=== PATIENT | female | born 1965 | race Caucasian/White ===

== ENCOUNTER 2017-12-04 12:14 | Emergency (ER) | payer OTHER ==
--- NOTE | 2017-12-04 14:01 | RAD REPORT ---
EXAM DESCRIPTION: RAD - Femur Left - 12/04/2017 1:51 pm CLINICAL HISTORY: Left leg pain COMPARISON: None. FINDINGS: No fracture is identified. There is no dislocation or periosteal reaction noted. No acute or suspicious bony finding. Minimal degenerative change seen along the superior margin of the acetab ulum. No focal femoral head abnormality. No periarticular mass or hematoma. No suspicious changes els ewhere in the soft tissues. IMPRESSION: Mild degenerative change along the superior acetabular rim. No acute bone, joint or soft tissue finding seen.
--- NOTE | 2017-12-04 14:02 | RAD REPORT ---
EXAM DESCRIPTION: RAD - Hip Left 2 View - 12/04/2017 1:55 pm CLINICAL HISTORY: Left hip pain COMPARISON: None. FINDINGS: AP and frogleg views of the left hip were obtained. There is no fracture or dislocation. N o AVN or focal femoral head abnormality. Minimal degenerative change seen along the superior margin o f the acetabular rim. No significant joint space narrowing. No pathologic bone process. SI joint deg enerative changes are present relatively mild. Sacral ala assessment is limited. No periarticular mass or hematoma. No abnormal soft tissue abnormality. IMPRESSION: Mild degenerative changes along the superior acetabular rim and SI joint.
--- NOTE | 2017-12-04 14:19 | ER ---
Nurse's Notes [facility] Name: Monica Anglin Age: 52 yrs Sex: Female : 1965 Arrival Date: 12/04/2017 Time: 12:17 Bed 17 Private MD: Harshal Garner Diagnosis: Contusion of left lower leg Presentation: 12/04 12:24 Presenting complaint: Mother states: pt was stuck on the toilet on Sunday and slid sv herself off of the toilet to the ground and started crawling the ground to get help. Pt c/o left posterior thigh pain. Pt has abrasion to the right knee. Transition of care: patient was not received from another setting of care. Onset of symptoms was December 01, 2017. Care prior to arrival: None. 12:24 Method Of Arrival: Wheelchair sv 12:24 Acuity: SUMMER 4 sv 13:16 Risk Assessment: Do you want to hurt yourself or someone else? Patient reports no ph desire to harm self or others. Initial Sepsis Screen: Does the patient meet any 2 criteria? No. Patient's initial sepsis screen is negative. Does the patient have a suspected source of infection? No. Patient's initial sepsis screen is negative. Historical: - Allergies: 12:29 No Known Allergies; sv - Home Meds: 12:29 None [Active]; sv - PMHx: 12:29 Hypertension; sv - PSHx: 12:29 None; sv - Immunization history:: Adult Immunizations up to date. - Social history:: Smoking status: Patient/guardian denies using tobacco, Patient/guardian denies using alcohol. - Ebola Screening: : No symptoms or risks identified at this time. Screenin:15 Abuse screen: Denies threats or abuse. Denies injuries from another. Nutritional ph screening: No deficits noted. Tuberculosis screening: No symptoms or risk factors identified. Fall Risk None identified. Assessment: 12:55 General: Appears in no apparent distress. uncomfortable, obese, well groomed, Behavior ph is calm, cooperative, appropriate for age. Pain: Complains of pain in lateral aspect of left thigh and right knee. Neuro: Level of Consciousness is awake, alert, obeys commands, Oriented to person, place, time, situation. Cardiovascular: Capillary refill < 3 seconds Patient's skin is warm and dry. Respiratory: Airway is patent Respiratory effort is even, unlabored, Respiratory pattern is regular, symmetrical. GI: No signs and/or symptoms were reported involving the gastrointestinal system. Derm: Skin is healthy with good turgor, Skin is pink, warm \T\ dry. Musculoskeletal: Circulation, motion, and sensation intact. Range of motion: intact in all extremities. Injury Description: Abrasion sustained to right knee was sustained 3 days. 14:00 Reassessment: Patient appears in no apparent distress at this time. Patient and/or ph family updated on plan of care and expected duration. Pain level reassessed. Patient is alert, oriented x 3, equal unlabored respirations, skin warm/dry/pink. Pt resting quietly, awaiting Xray results. 15:08 Reassessment: Patient appears in no apparent distress at this time. Patient and/or ph family updated on plan of care and expected duration. Pain level reassessed. Patient is alert, oriented x 3, equal unlabored respirations, skin warm/dry/pink. Pt d/c home w/ mother. Vital Signs: 12:29 BP 141 / 87; Pulse 101; Resp 22; Pulse Ox 97% ; Weight 136.08 kg; Height 5 ft. 7 in. sv (170.18 cm); Pain 3/10; 14:45 BP 135 / 78; Pulse 94; Resp 20; Temp 98.0; Pulse Ox 99% on R/A; ph 12:29 Body Mass Index 46.99 (136.08 kg, 170.18 cm) sv ED Course: 12:17 Patient arrived in ED. rg4 12:18 Harshal Garner DO is Private Physician. rg4 12:28 Triage completed. sv 12:29 Arm band placed on right wrist. Patient placed in an exam room, on a stretcher. sv 12:52 Jennifer Remy, ELIZABETH is Primary Nurse. ph 12:56 Marcial Huertas MD is Attending Physician. gs 13:16 Patient has correct armband on for positive identification. Bed in low position. Call ph light in reach. Side rails up X2. Pulse ox on. NIBP on. Warm blanket given. 13:51 Femur Left XRAY In Process Unspecified. EDMS 13:55 Hip Left 2 View XRAY In Process Unspecified. EDMS 14:18 Jose R Watkins MD is Referral Physician. gs 15:09 No provider procedures requiring assistance completed. Patient did not have IV access ph during this emergency room visit. Administered Medications: No medications were administered Outcome: 14:18 Discharge ordered by . gs 15:10 Discharged to home via wheelchair, with family. ph 15:10 Condition: good 15:10 Discharge instructions given to family, Instructed on discharge instructions, follow up and referral plans. medication usage, Demonstrated understanding of instructions, follow-up care, medications. 15:17 Patient left the ED. ph Signatures: Dispatcher [employer] EDAmy Tony RN RN Jennifer Remy RN RN Kiki Carpenter rg4 Marcial Huertas MD MD
--- NOTE | 2017-12-04 14:19 | EDPHYS ---
Physician Documentation [facility] Name: Monica Anglin Age: 52 yrs Sex: Female : 1965 Arrival Date: 12/04/2017 Time: 12:17 Bed 17 Private MD: Harshal Garner ED Physician Marcial Huertas HPI: 12/04 14:14 This 52 yrs old Unknown Female presents to ER via Wheelchair with complaints of Leg gs Pain. 14:14 The patient presents with an injury, pain. The complaints affect the left hip and left gs quadriceps. Context: The problem was sustained at home, resulted from the patient falling. Onset: The symptoms/episode began/occurred 2 day(s) ago. Modifying factors: The symptoms are alleviated by nothing. the symptoms are aggravated by movement. Associated signs and symptoms: Pertinent negatives numbness, weakness. Severity of symptoms: At their worst the symptoms were moderate, in the emergency department the symptoms are unchanged. Historical: - Allergies: 12:29 No Known Allergies; sv - Home Meds: 12:29 None [Active]; sv - PMHx: 12: Hypertension; sv - PSHx: 12:29 None; sv - Immunization history:: Adult Immunizations up to date. - Social history:: Smoking status: Patient/guardian denies using tobacco, Patient/guardian denies using alcohol. - Ebola Screening: : No symptoms or risks identified at this time. ROS: 14:14 All other systems are negative. gs Exam: 14:14 Head/Face: Normocephalic, atraumatic. Eyes: Pupils equal round and reactive to light, gs extra-ocular motions intact. Lids and lashes normal. Conjunctiva and sclera are non-icteric and not injected. Cornea within normal limits. Periorbital areas with no swelling, redness, or edema. ENT: Nares patent. No nasal discharge, no septal abnormalities noted. Tympanic membranes are normal and external auditory canals are clear. Oropharynx with no redness, swelling, or masses, exudates, or evidence of obstruction, uvula midline. Mucous membranes moist. Neck: Trachea midline, no thyromegaly or masses palpated, and no cervical lymphadenopathy. Supple, full range of motion without nuchal rigidity, or vertebral point tenderness. No Meningismus. Chest/axilla: Normal chest wall appearance and motion. Nontender with no deformity. No lesions are appreciated. Cardiovascular: Regular rate and rhythm with a normal S1 and S2. No gallops, murmurs, or rubs. Normal PMI, no JVD. No pulse deficits. Respiratory: Lungs have equal breath sounds bilaterally, clear to auscultation and percussion. No rales, rhonchi or wheezes noted. No increased work of breathing, no retractions or nasal flaring. Abdomen/GI: Soft, non-tender, with normal bowel sounds. No distension or tympany. No guarding or rebound. No evidence of tenderness throughout. Neuro: Awake and alert, GCS 15, oriented to person, place, time, and situation. Cranial nerves II-XII grossly intact. Motor strength 5/5 in all extremities. Sensory grossly intact. Cerebellar exam normal. Normal gait. 14:14 Constitutional: The patient appears alert, awake, obese. 14:14 Musculoskeletal/extremity: Extremities: noted in the left hip and lateral aspect of left thigh: tenderness, Circulation is intact in all extremities. 14:14 Skin: injury, abrasion(s), moderate sized abrasion noted, of the right knee. Vital Signs: 12:29 BP 141 / 87; Pulse 101; Resp 22; Pulse Ox 97% ; Weight 136.08 kg; Height 5 ft. 7 in. sv (170.18 cm); Pain 3/10; 14:45 BP 135 / 78; Pulse 94; Resp 20; Temp 98.0; Pulse Ox 99% on R/A; ph 12:29 Body Mass Index 46.99 (136.08 kg, 170.18 cm) sv MDM: 13:00 Patient medically screened. 14:14 Differential diagnosis: closed fracture, contusion, abrasion. Data reviewed: vital gs signs, nurses notes. 12/04 13:01 Order name: Femur Left XRAY; Complete Time: 14:12 gs 12/04 13:01 Order name: Hip Left 2 View XRAY; Complete Time: 14:12 Administered Medications: No medications were administered Disposition: 12/04/17 14:18 Discharged to Home. Impression: Contusion of left lower leg. - Condition is Stable. - Discharge Instructions: Contusion. - Medication Reconciliation Form, Thank You Letter, Antibiotic Education, Prescription Opioid Use form. - Follow up: Private Physician; When: 2 - 3 days; Reason: Re-evaluation by your physician. Follow up: Jose R Watkins MD; When: 2 - 3 days; Reason: Re-evaluation by your physician. Signatures: Dispatcher [employer] Amy Ruiz, RN RN Jennifer Remy RN RN HuertasMarcial norris MD MD gs Corrections: (The following items were deleted from the chart) 15:17 14:18 12/04/2017 14:18 Discharged to Home. Impression: Contusion of left lower leg. ph Condition is Stable. Forms are Medication Reconciliation Form, Thank You Letter, Antibiotic Education, Prescription Opioid Use. Follow up: Private Physician; When: 2 - 3 days; Reason: Re-evaluation by your physician. Follow up: Jose R Watkins; When: 2 - 3 days; Reason: Re-evaluation by your physician. gs
== END 2017-12-04 15:17 | disposition home or self-care (01) ==
LOC: ER 12:14
DX: S80.12XA Contusion of left lower leg, initial encounter (principal); I10 Essential (primary) hypertension; X58.XXXA Exposure to other specified factors, initial encounter; Y93.9 Activity, unspecified; Y92.9 Unspecified place or not applicable; Y99.9 Unspecified external cause status
CPT/HCPCS: 99283

== ENCOUNTER 2018-04-06 06:05 | Emergency (ER) | payer OTHER ==
[2018-04-06] MEDS ORDERED: NA CHLORIDE 0.9% 1,000 ML ONE ×3 (06:58→12:10)
[2018-04-06] MEDS ORDERED: CEFTRIAXONE/SWI 1gm 1 GM/10 ML SYR ONE (07:09)
[2018-04-06] MEDS ORDERED: ACETAMINOPHEN 500 MG TAB ONE (07:09)
[2018-04-06] MEDS ORDERED: NA CHLORIDE 0.9% 2,000 ML ONE (07:09)
[2018-04-06] MEDS ORDERED: ACETAMINOPHEN 650MG/RECT SUPP PR ONE (07:20)
[2018-04-06 07:24] LABS: Absolute Lymphocytes (CBC) 0.5 K/uL (0.7-4.9); Absolute Monocytes 0.4 K/uL (0.1-1.3); Absolute Neutrophil 21.3 K/uL (1.8-8.0); Basophils % 0.1 % (0-1.3); Eosinophils % 0.2 % (0-4.4); Hematocrit 33.5 % (36.0-45.0); Lymphocytes % 2.3 % (15.3-44.8); MCH 28.2 pg (27.0-35.0); MCV 81.3 fL (80-100); Monocytes % 1.8 % (3.3-12.3); RBC Red Blood Cell Count 4.12 M/uL (3.86-4.86)
[2018-04-06 07:27] LABS: Protime INR 1.07
[2018-04-06 08:04] LABS: ALT/SGPT 102 U/L (12-78); AST/SGOT 100 U/L (15-37); Albumin 1.8 g/dL (3.4-5.0); Alkaline Phosphatase 656 U/L (45-117); BUN Blood Urea Nitrogen 114 mg/dL (7-18); Bicarbonate 21 mmol/L (21-32); Bilirubin Direct 3.3 mg/dL (0-0.2); Bilirubin Total 3.8 mg/dL (0.2-1.0); Creatine Phosphokinase 61 U/L (26-192); Glucose Level 99 mg/dL (74-106); Lipase 119 U/L (73-393); Protein, Total 5.9 g/dL (6.4-8.2); Sodium Level 133 mmol/L (136-145); Troponin (Emerg Dept Use Only) < 0.02 ng/mL (0.0-0.045)
[2018-04-06 08:07] LABS: Potassium 2.8 mmol/L (3.5-5.1)
[2018-04-06 08:09] LABS: Blood Morphology Comment NOT SEEN (NOT SEEN); Platelet Estimate ADEQ; Platelets, Giant FEW
[2018-04-06] MEDS ORDERED: KCL 20 MEQ/100 mL IVPB 20 MEQ/100 ML BAG IV ONE (08:21)
[2018-04-06 08:29] LABS: Magnesium 1.5 mg/dL (1.8-2.4)
[2018-04-06 08:40] LABS: Urine Bacteria <20 /HPF (<20); Urine Culture Reflex Order NOT NEEDED; Urine RBC NONE SEEN /HPF (NONE SEEN)
[2018-04-06 08:41] LABS: Urine Amorphous Sediment 2+ /HPF (NONE SEEN)
[2018-04-06] MEDS ORDERED: Magnesium Sulfate 2gm IVPB 2 G/50 ML BAG IV ONE (08:45)
[2018-04-06] MEDS ORDERED: CALCIUM GLUCONATE 1gm/100 ML NS (4.65 mEq/100mL) IV ONE ×2 (09:00)
--- NOTE | 2018-04-06 09:04 | RAD REPORT ---
EXAM DESCRIPTION: CT - Abdomen Pelvis Wo Contrast - 04/06/2018 8:42 am CLINICAL HISTORY: Abdominal pain, vomiting COMPARISON: None. TECHNIQUE: Axial [address] imaging of the abdomen and pelvis was performed without IV contrast. No IV contrast administered due to abnormal renal function. No oral contrast administered. All CT scans are performed using dose optimization technique as appropriate and may include automated exposure control or mA/KV adjustment according to patient size. FINDINGS: No suspicious findings in the lung bases. Liver is upper normal in size. There is some heterogeneity of the liver parenchyma but no definitive mass seen. Absence of contrast is limiting. No gross capsular nodularity seen. Spleen is upper normal in size. No focal splenic abnormality. No focal abnormality of the pancreatic parenchyma. Biliary tree is not dilated. There is motion of the upper abdomen. There is questionable edema or th ickening of the gallbladder. Gallstones can be occult. No hydronephrosis or suspicious renal mass. No obstructing or nonobstructing renal calculi. A 4 x 3 c entimeter low-density mass lateral left kidney is probably a cyst. Motion artifact obscures the thao ns. No significant adrenal finding. Isodense renal masses and pyelonephritis cannot be excluded in th e absence of IV contrast. Urinary bladder is fully contracted around a Franz catheter. Uterus and ova ivon show no suspicious findings. No gastric dilatation or wall thickening. No dilated large or small bowel loops. Colonic diverticulos is present on the left. Appendicitis is not suspected. No free air or pneumatosis. Trace amount of fr ee fluid is present in the cul-de-sac. No hernia, mass or bulky lymphadenopathy. No acute or destructive bone process identifiable. Degenerative changes are present. IMPRESSION: No bowel obstruction, free air or surgically emergent finding. There is questionable wall thickening and edema of the gallbladder. The patient has respiratory motio n that limits upper abdominal assessment. Correlation is needed with any acute cholecystitis clinical or laboratory findings. No acute GI process identifiable. Appendicitis is not currently suspected. Trace free fluid in the cul-de-sac is likely physiologic. No hydronephrosis or acute finding. The amount of motion present and the absence of contrast precl uded evaluation of pyelonephritis for detection of an isodense mass.
[2018-04-06] MEDS ORDERED: PIPER/TAZO/NS 3.375gm 3.375 GM/100 ML BAG ONE (09:20)
[2018-04-06 09:45] LABS: Urine Blood TRACE (NEG); Urine Glucose NEGATIVE (NEG); Urine Protein NEGATIVE (NEG)
--- NOTE | 2018-04-06 11:02 | ER ---
Nurse's Notes [facility] Name: Monica Anglin Age: 52 yrs Sex: Female : 1965 Arrival Date: 04/06/2018 Time: 06:07 Bed 2 Private MD: Harshal Garner Diagnosis: Severe sepsis with septic shock;Calculus of bile duct with acute cholecystitis with obstruction Presentation: 04/06 07:07 Presenting complaint: Mother states: Pt was vomiting 3 days ago. Last night started jb4 complaining of back back. She yelled that she was wet and I noticed she had foul smelling urine. Transition of care: patient was not received from another setting of care. Onset of symptoms was April 06, 2018. Risk Assessment: Do you want to hurt yourself or someone else? Patient reports no desire to harm self or others. Initial Sepsis Screen: Does the patient meet any 2 criteria? Systolic BP < 90 mmHg. HR > 90 bpm. Yes Does the patient have a suspected source of infection? No. Patient's initial sepsis screen is negative. Care prior to arrival: None. 07:07 Method Of Arrival: Ambulatory jb4 07:07 Acuity: SUMMER 2 jb4 Triage Assessment: 07:10 General: Appears in no apparent distress. uncomfortable, Behavior is calm, cooperative, jb4 appropriate for age. Pain: Complains of pain in low back area Pain does not radiate. Pain currently is 4 out of 10 on a pain scale. at worst was 8 out of 10 on a pain scale. Quality of pain is described as crampy. EENT: No signs and/or symptoms were reported regarding the EENT system. Neuro: Level of Consciousness is awake, alert, obeys commands, Oriented to person, place, time, situation. Cardiovascular: Patient's skin is warm and dry. Respiratory: Airway is patent Respiratory effort is even, unlabored, Respiratory pattern is regular, symmetrical. GI: Reports diarrhea, nausea, vomiting. : Reports foul smelling urine. Derm: Skin is intact, Skin is pink, warm \T\ dry. Musculoskeletal: Circulation, motion, and sensation intact. Historical: - Allergies: 07:10 No Known Allergies; jb4 - Home Meds: 07:10 Lasix 20 mg Oral tab [Active]; Lisinopril Oral [Active]; jb4 - PMHx: 07:10 Hypertension; jb4 07:20 Developmental delay; aa5 - PSHx: 07:10 None; jb4 - Immunization history:: Adult Immunizations unknown, Flu vaccine is up to date. - Social history:: Smoking status: Patient/guardian denies using tobacco, Patient/guardian denies using alcohol. - Ebola Screening: : No symptoms or risks identified at this time. Screenin:50 Nutritional screening: No deficits noted. Fall Risk IV access (20 points). ea 07:10 Abuse screen: Denies threats or abuse. Tuberculosis screening: No symptoms or risk ea factors identified. Assessment: 07:00 General: Appears in no apparent distress. comfortable, Behavior is calm, cooperative. em Pain: Complains of pain in back and low back area. Neuro: Level of Consciousness is awake, alert, obeys commands, Oriented to person, place, time, situation. Cardiovascular: Heart tones S1 S2 present Capillary refill < 3 seconds Patient's skin is warm and dry. Rhythm is sinus tachycardia. Respiratory: Airway is patent Respiratory effort is even, unlabored, Respiratory pattern is regular, symmetrical. GI: Abdomen is obese, Bowel sounds present X 4 quads. Abd is soft and non tender X 4 quads. Reports diarrhea, nausea, vomiting. : Urine is cloudy. EENT: No signs and/or symptoms were reported regarding the EENT system. Derm: Skin is intact, Skin is normal. Musculoskeletal: Range of motion: intact in all extremities. 07:00 Reassessment: I agree with assessment completed by Elan Begum LVN . aa5 07:24 Reassessment: Patient appears in no apparent distress at this time. Patient and/or em family updated on plan of care and expected duration. Pain level reassessed. BP 85/50, HR 104, A\T\O4, provider and charge nurse notified, will continue to monitor pt. 07:45 Reassessment: BP 101/47, HR 111, RR 21, A\T\O4, will continue to monitor pt. em 08:25 Reassessment: Patient appears in no apparent distress at this time. Patient and/or em family updated on plan of care and expected duration. Pain level reassessed. pt transferred to CT with nurse and copy technician. provider and charge nurse notified, pt will be moved to ER2 after CT. 08:50 Reassessment: escorted pt to CT with IV pump, tolerated well, pt moved to ER2, report em given to ELIZABETH Acre. 09:41 Reassessment: ERP notified of BP, will be to bedside for central line placement. jl7 Vital Signs: 07:10 BP 104 / 43; Pulse 116; Resp 20; Temp 99.7; Pulse Ox 96% on R/A; Weight 129.27 kg; jb4 Height 5 ft. 7 in. (170.18 cm) (R); Pain 4/10; 07:24 BP 85 / 50; Pulse 104; Resp 21; Pulse Ox 99% on R/A; em 07:30 BP 97 / 58; Pulse 111; em 07:45 BP 101 / 47; Pulse 111; em 08:00 BP 84 / 49; Pulse 115; em 08:10 BP 97 / 40; Pulse 108; em 08:22 BP 83 / 54; Pulse 109; Resp 22; Pulse Ox 99% on R/A; em 09:07 BP 103 / 42; Pulse 100; Resp 25; Temp 98.5; Pulse Ox 99% ; jl7 09:15 BP 105 / 40; Pulse 100; Resp 20 S; Pulse Ox 96% on R/A; jl7 09:41 BP 83 / 39; Pulse 96; Resp 21 S; Pulse Ox 96% on R/A; jl7 09:48 BP 91 / 47; Pulse 96; Resp 24 S; Pulse Ox 98% on R/A; jl7 10:00 BP 84 / 52; Pulse 97; Resp 20 S; Pulse Ox 99% on R/A; jl7 10:15 BP 90 / 49; Pulse 96; Resp 19 S; Pulse Ox 96% on R/A; jl7 10:30 BP 95 / 45; Pulse 96; Resp 19 S; Pulse Ox 97% on R/A; jl7 10:45 BP 92 / 48; Pulse 97; Resp 18 S; Pulse Ox 96% on R/A; jl7 11:00 BP 81 / 52; Pulse 94; Resp 16 S; Pulse Ox 96% on R/A; jl7 11:15 BP 91 / 49; Pulse 96; Resp 18 S; Pulse Ox 96% on R/A; jl7 11:21 BP 107 / 49; Pulse 92; Resp 22 S; Pulse Ox 97% on R/A; jl7 11:24 BP 108 / 51; Pulse 92; jl7 07:10 Body Mass Index 44.64 (129.27 kg, 170.18 cm) jb4 ED Course: 06:07 Patient arrived in ED. am2 06:07 Harshal Garner DO is Private Physician. am2 06:10 Rosendo Ellis PA is PHCP. jr8 06:10 Marcial Huertas MD is Attending Physician. jr8 06:15 Arm band placed on right wrist. Patient placed in an exam room, on a stretcher, on ea pulse oximetry. 06:15 Patient has correct armband on for positive identification. Placed in gown. Bed in low ea position. Call light in reach. Side rails up X2. 06:41 Fabrice Nicole RN is Primary Nurse. jb4 07:00 Pulse ox on. NIBP on. jb4 07:00 Initial lab(s) drawn, by nj, sent to lab. Inserted saline lock: 20 gauge in left jb4 antecubital area, using aseptic technique. Blood collected. 07:05 Radiology exam delayed due to patient is not appropriately dressed for the exam at this ag1 time. 07:09 Triage completed. jb4 07:25 X-ray completed. Portable x-ray completed in exam room. ag1 07:27 Chest Single View XRAY In Process Unspecified. EDMS 08:40 CT completed. Patient moved to CT via stretcher. Patient moved back from CT. cw1 08:41 CT Abd/Pelvis - Without Cont In Process Unspecified. EDMS 08:[address] moved back from [address]. sv 09:15 Inserted saline lock: 22 gauge in left hand, using aseptic technique. jl7 10:23 Ultrasound completed. Patient tolerated well. Notified QA MANAGER/SURI tesfaye. sg3 10:25 US Abdomen Limited In Process Unspecified. EDMS 11:21 \T\1028 initiated a transfer with Gayle at the [facility] transfer center./ \T\1111 eb administrative approval given by Gayle Armas RN/ Pt going to [address] [place] [address] RM 6a11/ Report to be called to [phone] Dr. grullon has accepted the patient in transfer. 11:31 Assisted provider with central line placement. Set up central line tray. Triple lumen jl7 line placed in right femoral. Line placed by Rosendo MCCORD Placement verified by blood return, Dressed with Tape, Tegaderm, Patient tolerated well. Before procedure, did Practitioner(s) obtain informed consent? No. Patient \T\ family education about procedure, CLABSI prevention and S/S of infection? Yes. Time-out/Briefing performed prior to start of procedure? Yes. Was handwashing/sanitizing done immediately prior to procedure? Yes. Was patient positioned to in a way to prevent air embolism? Yes. Was procedure site sterilized? Yes, with chlorhexidine. Was the site allowed to dry? Yes. Was local anesthetic and/or sedation utilized? Yes. During the procedure, did the Practitioner(s) maintain a sterile field? Yes. Were unused ports clamped during insertion? Yes. Was a 2nd qualified MD obtained after 3 unsuccessful insertion attempts? No. Was blood aspirated from each lumen? Yes. After the procedure, did the Practitioner(s) clean the site and apply a sterile dressing? Yes. Administered Medications: 07:00 Drug: NS 0.9% (30 ml/kg) 30 ml/kg Route: IV; Rate: bolus; Site: left antecubital; em 07:18 Not Given (Other Intervention Used): Acetaminophen 1000 mg PO once em 07:31 Drug: Tylenol Suppository 650 mg Route: DC; em 09:32 Follow up: Response: Temperature is decreased jl7 07:40 Drug: Rocephin 1 grams Route: IV; Rate: calculated rate; Site: left antecubital; aa5 07:42 Follow up: Response: No adverse reaction; IV Status: Completed infusion jl7 08:50 Drug: Magnesium Sulfate 2 grams Route: IVPB; Infused Over: 2 hrs; Site: left jl7 antecubital; 10:50 Follow up: Response: No adverse reaction; IV Status: Completed infusion jl7 09:05 Drug: Potassium Chloride 20 mEq Route: IV; Rate: calculated rate; Site: left em antecubital; 11:00 Follow up: Response: No adverse reaction; IV Status: Completed infusion jl7 09:05 CANCELLED (Physician Discretion): vancoMYCIN 1 grams IVPB once over 2 hrs jr8 09:25 Drug: Zosyn 3.375 grams Route: IVPB; Infused Over: 60 mins; Site: left hand; jl7 10:25 Follow up: Response: No adverse reaction; IV Status: Completed infusion jl7 10:30 Drug: Calcium Gluconate 1 grams Route: IVPB; Infused Over: 60 mins; Site: left jl7 antecubital; 11:30 Follow up: Response: No adverse reaction; IV Status: Completed infusion jl7 11:17 Drug: Levophed (4 mg/250 mL D5W 4 mcg/min Route: IV; Rate: calculated rate; Site: right jl7 femoral; Outcome: 11:01 ER care complete, transfer ordered by MD. [email or web address] 13:17 Patient left the ED. vidhya Addendum: 04/09/2018 09:51 Addendum: Culture Results: Positive blood culture. Phone call Attempt #[address] [facility] transfer center, faxed report to , spoke daphnie Olivo in transfer center. Signatures: Dispatcher [employer] Amy Ruiz RN Elan Arias, TRACTOR MECHANIC APPRENTICE TRACTOR MECHANIC APPRENTICE em Génesis Sepulveda, RN Lynsey Odonnell RN RN Rosie Coffey cw1 Rosendo Ellis PA PA jr8 Fay Shah ag1 Fabrice Nicole RN Yazmin Borja RN ELIZABETH jl7 Gayle Valdovinos Elena RN Dennise Sanford ea, Elizabeth eb Corrections: (The following items were deleted from the chart) 04/06 07:25 07:23 Radiology exam delayed due to patient is not appropriately dressed for the exam ag1 at this time. ag1
--- NOTE | 2018-04-06 11:02 | EDPHYS ---
Physician Documentation [facility] Name: Monica Anglin Age: 52 yrs Sex: Female : 1965 Arrival Date: 04/06/2018 Time: 06:07 Bed 2 Private MD: Harshal Garner ED Physician Marcial Huertas HPI: 04/06 07:32 This 52 yrs old Unknown Female presents to ER via Ambulatory with complaints of Back jr8 Pain. 07:32 The symptoms are located in the low back. Onset: The symptoms/episode began/occurred jr8 acutely, today. The pain does not radiate. Associated signs and symptoms: Pertinent positives: nausea, vomiting. Modifying factors: The patient symptoms are alleviated by nothing, the patient symptoms are aggravated by nothing. Severity of symptoms: At their worst the symptoms were moderate, in the emergency department the symptoms are unchanged. It is unknown whether or not the patient has had similar symptoms in the past. The patient has not recently seen a physician. Stated that she had n/v for the past 3 days. This morning work up screaming because of low back pain. Had been complaining that she was wet as well. Mother stated that her urine was foul smelling. Patient hypotensive and tachycardic with low grade fever upon arrival . Historical: - Allergies: 07:10 No Known Allergies; jb4 - Home Meds: 07:10 Lasix 20 mg Oral tab [Active]; Lisinopril Oral [Active]; jb4 - PMHx: 07:10 Hypertension; jb4 07:20 Developmental delay; aa5 - PSHx: 07:10 None; jb4 - Immunization history:: Adult Immunizations unknown, Flu vaccine is up to date. - Social history:: Smoking status: Patient/guardian denies using tobacco, Patient/guardian denies using alcohol. - Ebola Screening: : No symptoms or risks identified at this time. ROS: 07:32 Eyes: Negative for injury, pain, redness, and discharge, ENT: Negative for injury, jr8 pain, and discharge, Neck: Negative for injury, pain, and swelling, Cardiovascular: Negative for chest pain, palpitations, and edema, Respiratory: Negative for shortness of breath, cough, wheezing, and pleuritic chest pain, MS/Extremity: Negative for injury and deformity, Skin: Negative for injury, rash, and discoloration, Neuro: Negative for headache, weakness, numbness, tingling, and seizure. 07:32 Abdomen/GI: Positive for nausea and vomiting, Negative for abdominal pain, diarrhea, abdominal distension, anorexia, dysphagia, hematemesis, black/tarry stool, rectal pain, rectal bleeding, bowel incontinence, flatulence. 07:32 Back: Positive for pain at rest, Negative for pain with movement, radiated pain. Exam: 07:32 Eyes: Pupils equal round and reactive to light, extra-ocular motions intact. Lids and jr8 lashes normal. Conjunctiva and sclera are non-icteric and not injected. Cornea within normal limits. Periorbital areas with no swelling, redness, or edema. ENT: Nares patent. No nasal discharge, no septal abnormalities noted. Tympanic membranes are normal and external auditory canals are clear. Oropharynx with no redness, swelling, or masses, exudates, or evidence of obstruction, uvula midline. Mucous membranes moist. Neck: Trachea midline, no thyromegaly or masses palpated, and no cervical lymphadenopathy. Supple, full range of motion without nuchal rigidity, or vertebral point tenderness. No Meningismus. Respiratory: Lungs have equal breath sounds bilaterally, clear to auscultation and percussion. No rales, rhonchi or wheezes noted. No increased work of breathing, no retractions or nasal flaring. Skin: Warm, dry with normal turgor. Normal color with no rashes, no lesions, and no evidence of cellulitis. MS/ Extremity: Pulses equal, no cyanosis. Neurovascular intact. Full, normal range of motion. Neuro: Awake and alert, GCS 15, oriented to person, place, time, and situation. Cranial nerves II-XII grossly intact. Motor strength 5/5 in all extremities. Sensory grossly intact. Cerebellar exam normal. Normal gait. History of MR 07:32 Cardiovascular: Rate: tachycardic, Rhythm: regular, Pulses: Pulses are 2+ in right radial artery and left radial artery. Heart sounds: normal, normal S1and S2, no S3 or S4, no murmur, no rub, no gallop, Edema: is not appreciated, JVD: is not appreciated. 07:32 Abdomen/GI: Inspection: obese Bowel sounds: active, Palpation: abdomen is soft and non-tender, in all quadrants, mass, is not appreciated, rebound tenderness, is not appreciated, voluntary guarding, is not appreciated, involuntary guarding, is not appreciated, no appreciated organomegaly, Indicators: McBurney's point is not tender, Nicole's sign is negative, Rovsing's sign is negative, Liver: no appreciated palpable abnormalities, tenderness. 07:32 Back: pain, is absent, ROM is normal, normal spinal alignment noted, CVA tenderness, is absent. Vital Signs: 07:10 BP 104 / 43; Pulse 116; Resp 20; Temp 99.7; Pulse Ox 96% on R/A; Weight 129.27 kg; jb4 Height 5 ft. 7 in. (170.18 cm) (R); Pain 4/10; 07:24 BP 85 / 50; Pulse 104; Resp 21; Pulse Ox 99% on R/A; em 07:30 BP 97 / 58; Pulse 111; em 07:45 BP 101 / 47; Pulse 111; em 08:00 BP 84 / 49; Pulse 115; em 08:10 BP 97 / 40; Pulse 108; em 08:22 BP 83 / 54; Pulse 109; Resp 22; Pulse Ox 99% on R/A; em 09:07 BP 103 / 42; Pulse 100; Resp 25; Temp 98.5; Pulse Ox 99% ; jl7 09:15 BP 105 / 40; Pulse 100; Resp 20 S; Pulse Ox 96% on R/A; jl7 09:41 BP 83 / 39; Pulse 96; Resp 21 S; Pulse Ox 96% on R/A; jl7 09:48 BP 91 / 47; Pulse 96; Resp 24 S; Pulse Ox 98% on R/A; jl7 10:00 BP 84 / 52; Pulse 97; Resp 20 S; Pulse Ox 99% on R/A; jl7 10:15 BP 90 / 49; Pulse 96; Resp 19 S; Pulse Ox 96% on R/A; jl7 10:30 BP 95 / 45; Pulse 96; Resp 19 S; Pulse Ox 97% on R/A; jl7 10:45 BP 92 / 48; Pulse 97; Resp 18 S; Pulse Ox 96% on R/A; jl7 11:00 BP 81 / 52; Pulse 94; Resp 16 S; Pulse Ox 96% on R/A; jl7 11:15 BP 91 / 49; Pulse 96; Resp 18 S; Pulse Ox 96% on R/A; jl7 11:21 BP 107 / 49; Pulse 92; Resp 22 S; Pulse Ox 97% on R/A; jl7 11:24 BP 108 / 51; Pulse 92; jl7 07:10 Body Mass Index 44.64 (129.27 kg, 170.18 cm) jb4 Procedures: 10:23 Central Line: the site was prepped with Betadine, in sterile fashion, a triple lumen jr8 catheter was inserted, in the right femoral vein, in 1 attempts. placement was verified, by blood return, the site was dressed with 4X4s, Tegaderm, using sterile technique, the patient tolerated the procedure, well. MDM: 06:51 Patient medically screened. jr8 10:24 Data reviewed: vital signs, nurses notes, lab test result(s), EKG, radiologic studies, jr8 CT scan, plain films, ultrasound. Data interpreted: Pulse oximetry: on room air is 98 %. Interpretation: normal. Sepsis 6 hour Focused Exam: Focused Assessment performed: April 06, 2018 at 10:24 Heart: Regular rate/rhythm noted. Lungs: Noted to be clear bilaterally. Capillary refill examination performed. Capillary refill noted to be < 2 seconds. Peripheral pulse evaluation performed. Radial Peripheral pulses noted to be 2+ slightly diminished. Skin examination performed. Skin noted to have normal turgor. Skin noted to be pink. Current vital signs reviewed: Yes. Neuro: Neurological examination improved from previous exam. Cardio: Cardiovascular examination improved from previous exam. Heart rate and blood pressure have improved. Respiratory: Respiratory exam improved from previous exam. Counseling: I had a detailed discussion with the patient and/or guardian regarding: the historical points, exam findings, and any diagnostic results supporting the discharge/admit diagnosis, lab results, radiology results, the need to transfer to another facility, [facility] does not immediately have the required specialist. Response to treatment: the patient's symptoms have mildly improved after treatment. 10:59 ED course: Dr. Mendez Accepted to surgical ICU for further evaluation . 8 15:59 ED course: pt seen and examined supervised all care and procedures and agree.. 04/06 06:56 Order name: Urine Culture [facility] 04/06 06:56 Order name: Basic Metabolic Panel [facility] 04/06 06:56 Order name: Blood Culture Adult (2) [facility] 04/06 06:56 Order name: CBC with Diff; Complete Time: 08:17 [facility] 04/06 06:56 Order name: CPK [facility] 04/06 06:56 Order name: Lactate; Complete Time: 07:37 [facility] 04/06 06:56 Order name: LFT's; Complete Time: 08:49 [facility] 04/06 06:56 Order name: Lipase; Complete Time: 08:49 [facility] 04/06 06:56 Order name: Procalcitonin; Complete Time: 07:54 [facility] 04/06 06:56 Order name: Protime (+inr); Complete Time: 07:54 [facility] 04/06 06:56 Order name: Ptt, Activated; Complete Time: 07:54 [facility] 04/06 06:56 Order name: Troponin (emerg Dept Use Only); Complete Time: 08:49 [facility] 04/06 06:56 Order name: Urine Microscopic Only; Complete Time: 08:49 [facility] 04/06 06:57 Order name: Urine Culture [facility] 04/06 06:56 Order name: Chest Single View XRAY; Complete Time: 12:34 [facility] 04/06 06:57 Order name: Basic Metabolic Panel; Complete Time: 08:49 [facility] 04/06 06:57 Order name: Creatine Phosphokinase; Complete Time: 08:49 [facility] 04/06 08:07 Order name: LAB Add On [facility] 04/06 08:07 Order name: Manual Differential; Complete Time: 08:17 [facility] 04/06 08:07 Order name: CT Abd/Pelvis - Without Cont; Complete Time: 09:05 [facility] 04/06 08:23 Order name: Magnesium; Complete Time: 08:49 [facility] 04/06 08:34 Order name: Urine Dipstick--Ancillary (enter results) 04/06 08:34 Order name: Urine --Ancillary (enter results) 04/06 08:35 Order name: Urine Dipstick-Ancillary; Complete Time: 09:53 [facility] 04/06 08:35 Order name: Urine --Ancillary; Complete Time: 09:53 [facility] 04/06 09:06 Order name: US Abdomen Limited; Complete Time: 11:42 [facility] 04/06 06:56 Order name: Cath; Complete Time: 07:52 [facility] 04/06 06:56 Order name: Accucheck; Complete Time: 07:47 04/06 06:56 Order name: Cardiac monitoring; Complete Time: 07:47 04/06 06:56 Order name: EKG - Nurse/Tech; Complete Time: 07:47 04/06 06:56 Order name: IV Saline Lock - Large Bore; Complete Time: 07:47 04/06 06:56 Order name: Labs collected and sent; Complete Time: 07:47 04/06 06:56 Order name: O2 Per Protocol; Complete Time: 07:48 04/06 06:56 Order name: O2 Sat Monitoring; Complete Time: 07:48 04/06 06:56 Order name: Urine Dipstick-Ancillary (obtain specimen); Complete Time: 07:47 Administered Medications: 07:00 Drug: NS 0.9% (30 ml/kg) 30 ml/kg Route: IV; Rate: bolus; Site: left antecubital; em 07:18 Not Given (Other Intervention Used): Acetaminophen 1000 mg PO once em 07:31 Drug: Tylenol Suppository 650 mg Route: MA; em 09:32 Follow up: Response: Temperature is decreased jl7 07:40 Drug: Rocephin 1 grams Route: IV; Rate: calculated rate; Site: left antecubital; [facility] 07:42 Follow up: Response: No adverse reaction; IV Status: Completed infusion jl7 08:50 Drug: Magnesium Sulfate 2 grams Route: IVPB; Infused Over: 2 hrs; Site: left [facility] antecubital; 10:50 Follow up: Response: No adverse reaction; IV Status: Completed infusion 7 09:05 Drug: Potassium Chloride 20 mEq Route: IV; Rate: calculated rate; Site: left em antecubital; 11:00 Follow up: Response: No adverse reaction; IV Status: Completed infusion 7 09:05 CANCELLED (Physician Discretion): vancoMYCIN 1 grams IVPB once over 2 hrs jr8 09:25 Drug: Zosyn 3.375 grams Route: IVPB; Infused Over: 60 mins; Site: left hand; jl7 10:25 Follow up: Response: No adverse reaction; IV Status: Completed infusion 7 10:30 Drug: Calcium Gluconate 1 grams Route: IVPB; Infused Over: 60 mins; Site: left [facility] antecubital; 11:30 Follow up: Response: No adverse reaction; IV Status: Completed infusion jl7 11:17 Drug: Levophed (4 mg/250 mL D5W 4 mcg/min Route: IV; Rate: calculated rate; Site: right jl7 femoral; Disposition: 17:53 Co-signature as Attending Physician, Marcial Huertas MD. Disposition: 04/06/18 11:01 Transfer ordered to [facility]. Diagnosis are Severe sepsis with septic shock, Calculus of bile duct with acute cholecystitis with obstruction. - Reason for transfer: Higher level of care. - Accepting physician is Dr. Mendez. - Condition is Fair. - Problem is new. - Symptoms have improved. Critical care time excluding procedures: 10:59 Critical care time: Bedside Care: 20 minutes, Consultation: 15 minutes, Family jr8 Intervention: 10 minutes. Total time: 45 minutes Signatures: Dispatcher [employer] EDAmy Tony, RN RN sv Elan Begum, APPAREL EMBROIDERY DIGITIZER APPAREL EMBROIDERY DIGITIZER Lynsey Hendricks, RN RN aa5 Rosendo Ellis PA PA jr8 Fabrice Nicole, RN ELIZABETH jb4 Yazmin Bradford RN RN jl7 Marcial Huertas MD MD Corrections: (The following items were deleted from the chart) 08:07 07:47 CBC Smear Scan ordered. EDMS EDMS 09:05 09:03 vancoMYCIN 1 grams IVPB once over 2 hrs ordered. jr8 jr8 13:17 11:01 04/06/2018 11:01 Transfer ordered to [facility]. Diagnosis is sv Severe sepsis with septic shock; Calculus of bile duct with acute cholecystitis with obstruction. Reason for transfer: Higher level of care. Accepting physician is Dr. Mendez. Condition is Fair. Problem is new. Symptoms have improved. jr8
[2018-04-06] MEDS ORDERED: NOREPINEPHRINE 4mg/D5W 250mL 4 MG/250 ML BAG IV ONE (11:11)
--- NOTE | 2018-04-06 11:40 | RAD REPORT ---
EXAM DESCRIPTION: US - Abdomen Exam Limited - 04/06/2018 10:25 am CLINICAL HISTORY: Abdominal pain, right upper quadrant pain. Preliminary findings provided at the time of the study. COMPARISON: CT study April 06. FINDINGS: Multiple shadowing gallstones are present in a partially contracted gallbladder. Contracte d status results in accentuated wall thickness. Some true wall thickening and edema are suspected bas ed on the sonographic appearance and the CT appearance. No measurable pericholecystic fluid. Extrahepatic biliary tree is much better visualized than on the motion degraded CT study. Intrahepati c biliary tree dilatation is not confirmed on this study. There is significant extrahepatic biliary t ree up to 10-12 mm in diameter. Duct stone would be suspected but is not identifiable. Mass lesion ca nnot be excluded. IMPRESSION: Multi stone cholelithiasis with gallbladder wall thickening. Correlation is needed with acute cholecystitis clinical or laboratory findings. Extrahepatic biliary tree dilatation up to 12 mm in size. Biliary tree is much better visualized than on the motion degraded CT study. Given the biliary tree dilatation and gallbladder stones, a duct stone is the most likely etiology fo r the dilatation. Duct or pancreatic mass etiologies are not excluded.
--- NOTE | 2018-04-06 12:24 | RAD REPORT ---
EXAM DESCRIPTION: RAD - Chest Single View - 04/06/2018 7:27 am CLINICAL HISTORY: Chest pain, hypertension COMPARISON: None. TECHNIQUE: AP portable chest image was obtained 0718 hours . FINDINGS: Lung volumes are low. No peripheral consolidation or mass. Mild failure or volume overload could be masked by the shallow inspiration. Heart and vasculature are normal. No measurable pleural effusion and no pneumothorax. No acute bony abnormality seen. No acute aortic findings suspected. IMPRESSION: Shallow inspiration chest film suspicious for a mild failure, volume overload or pulmona ry edema.
--- NOTE | 2018-04-07 19:17 | EKG ---
Test Date: 2018-04-06 Test Time: 07:57:20 Manager Lighting: FLORIDALMA MEASUREMENT RESULTS: Intervals: Rate: 114 OH: 128 QRSD: 100 QT: 330 QTc: 454 [place]: P: 55 OH: 128 QRS: 37 T: 35 INTERPRETIVE STATEMENTS: Sinus tachycardia Nonspecific ST abnormality Abnormal ECG No previous ECG available for comparison Electronically Signed On 04-07-18 19:15:02 CDT by Jozef Fisher
== END 2018-04-06 13:17 | disposition short-term general hospital (02) ==
LOC: ER 06:05
PROC: 06HM33Z Insertion of Infusion Device into Right Femoral Vein, Percutaneous Approach (ICD-10-PCS; principal; 2018-04-06)
DX: K80.43 Calculus of bile duct with acute cholecystitis with obstruction (principal); R65.21 Severe sepsis with septic shock; I10 Essential (primary) hypertension
CPT/HCPCS: 36415; 36556; 71045; 74176; 76705; 80048; 80076; 81025; 82550; 83605; 83690; 83735; 84145; 84484; 85025; 85610; 85730; 87040 ×2; 87077 ×2; 87086; 87186 ×2; 87205 ×4; 93005; 99285; J0610; J0696; J2543; J3475; J7030 ×4; 81003; 81015; 87088

== ENCOUNTER 2021-03-04 14:34 | Emergency (ER) | payer OTHER ==
--- NOTE | 2021-03-04 16:06 | RAD REPORT ---
EXAM DESCRIPTION: RAD - Foot Left 3 View - 03/04/2021 3:59 pm CLINICAL HISTORY: PAIN COMPARISON: No comparisons FINDINGS: Fractures involving the second through fourth metatarsal heads. No intra-articular extensi on. Alignment is near anatomic. Calcaneal spurring. Midfoot degenerative changes. IMPRESSION: Second through fourth metatarsal head fractures. No intra-articular extension.
--- NOTE | 2021-03-04 16:37 | ER ---
Nurse's Notes [facility] Name: Monica Anglin Age: 55 yrs Sex: Female : 1965 Arrival Date: 03/04/2021 Time: 14:38 Bed 18 Private MD: Diagnosis: Fracture of unspecified metatarsal bone(s), left foot, initial encounter for closed fracture-Metatarsal heads two through four Presentation: 03/04 14:44 Chief complaint: Patient states: she fell on 03/02 and had an injury to her left foot. ap3 Patient has a hx of injury to the left leg, and is having an increased difficulty in walking since the fall. Coronavirus screen: At this time, the client does not indicate any symptoms associated with coronavirus-19. Ebola Screen: No symptoms or risks identified at this time. Initial Sepsis Screen: Does the patient meet any 2 criteria? No. Patient's initial sepsis screen is negative. Initial Sepsis Screen: Does the patient have a suspected source of infection? No. Patient's initial sepsis screen is negative. Risk Assessment: Do you want to hurt yourself or someone else? Patient reports no desire to harm self or others. Onset of symptoms was March 02, 2021. 14:44 Method Of Arrival: Ambulatory ap3 14:44 Acuity: SUMMER 4 ap3 Triage Assessment: 14:49 General: Appears obese, Behavior is calm, cooperative, quiet. Pain: Complains of pain ap3 in left foot and toes Pain began suddenly, 2-3 days ago. Neuro: Level of Consciousness is awake, alert, obeys commands, Gait is unsteady. Respiratory: Airway is patent. Historical: - Allergies: 14:47 No Known Allergies; ap3 - Home Meds: 14:47 lisinopril Oral [Active]; Lasix 20 mg Oral tab [Active]; levothyroxine oral [Active]; ap3 antidepressant in the morning [Active]; - PMHx: 14:47 developmental delay; Hypertension; ap3 - PSHx: 14:47 Cholecystectomy; ap3 - Immunization history:: Client reports having NOT received the Covid vaccine. - Social history:: Smoking status: Patient denies any tobacco usage or history of. Patient/guardian denies using alcohol, street drugs. Assessment: 15:29 General: Appears uncomfortable, obese, Behavior is calm, cooperative, quiet, mother at tc5 bedside, answers questions.. Pain: Denies pain. Unable to use pain scale. reports it hurts when she walks or when its touched, other than that there is no pain. Musculoskeletal: pt mother reports pt tripped on the threshold of the door yesterday, left foot bruised and swollen. pt not able to bear weight on left foot. Vital Signs: 14:44 BP 133 / 79; Pulse 94; Resp 17; Temp 98.1; Pulse Ox 100% on R/A; Weight 124.74 kg; ap3 Height 5 ft. 6 in. (167.64 cm); 14:44 Body Mass Index 44.39 (124.74 kg, 167.64 cm) ap3 ED Course: 14:38 Patient arrived in ED. mr 14:47 Triage completed. ap3 15:12 Flo Rojas PA is PHCP. cp 15:12 Conrado Joseph MD is Attending Physician. cp 15:28 Izabela Smith, RN is Primary Nurse. tc5 15:59 XRAY Foot LEFT 3 View In Process Unspecified. EDMS 16:35 Mal Daugherty MD is Referral Physician. cp Administered Medications: 16:49 Not Given (Other Intervention Used): [place] (HYDROcodone-acetaminophen) (7.5 mg-325 mg) ss 1 tabs PO once; RASS on ADMIN: Combtv4, Very Agttd3, Agttd2, Rstlss1, AlertClm0, Drwsy-1, Lt Sdtn-2, Mod Sdtn-3, Dp Sdtn-4, UnArsble-5 Outcome: 16:37 Discharge ordered by . cp 17:19 Patient left the ED. tc5 Signatures: Dispatcher [employer] EDNV Shana Garcia mr Flo Rojas PA PA cp Gayle Cortez RN RN ap3 Izabela Smith RN RN tc5 Malena Peraza RN ss
--- NOTE | 2021-03-04 16:37 | EDPHYS ---
Physician Documentation [facility] Name: Monica Anglin Age: 55 yrs Sex: Female : 1965 Arrival Date: 03/04/2021 Time: 14:38 Bed 18 Private MD: ED Physician Conrado Joseph HPI: 03/04 15:25 This 55 yrs old Female presents to ER via Ambulatory with complaints of Fall cp Injury. 15:25 The patient presents with an injury, pain, that is acute. The complaints affect the cp left foot. Context: resulted from the patient falling, the patient can fully bear weight, the patient is able to ambulate, with moderate difficulty. Onset: The symptoms/episode began/occurred 2 day(s) ago. Associated signs and symptoms: Pertinent positives: swelling, ecchymosis, Pertinent negatives: calf tenderness, numbness. Historical: - Allergies: 14:47 No Known Allergies; ap3 - Home Meds: 14:47 lisinopril Oral [Active]; Lasix 20 mg Oral tab [Active]; levothyroxine oral [Active]; ap3 antidepressant in the morning [Active]; - PMHx: 14:47 developmental delay; Hypertension; ap3 - PSHx: 14:47 Cholecystectomy; ap3 - Immunization history:: Client reports having NOT received the Covid vaccine. - Social history:: Smoking status: Patient denies any tobacco usage or history of. Patient/guardian denies using alcohol, street drugs. ROS: 15:28 Constitutional: Negative for body aches, chills, fever. cp 15:28 Respiratory: Negative for cough, shortness of breath, wheezing. 15:28 Abdomen/GI: Negative for abdominal pain, nausea, vomiting, and diarrhea. 15:28 MS/extremity: Positive for ecchymosis, pain, swelling, tenderness, of the left foot, Negative for paresthesias. 15:28 All other systems are negative. Exam: 15:30 Constitutional: The patient appears in no acute distress, alert, awake, well developed, cp well nourished, obese. 15:30 Head/Face: Normocephalic, atraumatic. cp 15:30 Musculoskeletal/extremity: Extremities: grossly normal except: noted in the left foot: ecchymosis, pain, swelling, tenderness, pain noted to second through fourth metatarsal heads, Pulses: noted to be 2+ in the left dorsalis pedis artery, Sensation intact. 15:30 Skin: cellulitis, is not appreciated, no rash present. Vital Signs: 14:44 BP 133 / 79; Pulse 94; Resp 17; Temp 98.1; Pulse Ox 100% on R/A; Weight 124.74 kg; ap3 Height 5 ft. 6 in. (167.64 cm); 14:44 Body Mass Index 44.39 (124.74 kg, 167.64 cm) ap3 MDM: 15:17 Patient medically screened. cp 15:30 Differential diagnosis: fracture, sprain, dislocation. cp 16:36 Data reviewed: vital signs, nurses notes, radiologic studies, plain films. cp 16:36 Test interpretation: by ED physician or midlevel provider: plain radiologic studies. cp Counseling: I had a detailed discussion with the patient and/or guardian regarding: the historical points, exam findings, and any diagnostic results supporting the discharge/admit diagnosis, radiology results, the need for outpatient follow up, a orthopedic surgeon, to return to the emergency department if symptoms worsen or persist or if there are any questions or concerns that arise at home. Response to treatment: the patient's symptoms have markedly improved after treatment, and as a result, I will discharge patient. 03/04 15:20 Order name: XRAY Foot LEFT 3 View; Complete Time: 16:16 cp 03/04 16:35 Order name: Walking boot cp Administered Medications: 16:49 Not Given (Other Intervention Used): [place] (HYDROcodone-acetaminophen) (7.5 mg-325 mg) ss 1 tabs PO once; RASS on ADMIN: Combtv4, Very Agttd3, Agttd2, Rstlss1, AlertClm0, Drwsy-1, Lt Sdtn-2, Mod Sdtn-3, Dp Sdtn-4, UnArsble-5 Disposition: 16:45 Chart complete. cp 03/05 16:58 Co-signature as Attending Physician, Conrado Joseph MD I agree with the assessment and kdr plan of care. Disposition Summary: 03/04/21 16:37 Discharge Ordered Location: Home cp Problem: new cp Symptoms: have improved cp Condition: Stable cp Diagnosis - Fracture of unspecified metatarsal bone(s), left foot, initial encounter for closed cp fracture - Metatarsal heads two through four Followup: cp - With: Mal Daugherty MD - When: 2 - 3 days - Reason: Recheck today's complaints Discharge Instructions: - Discharge Summary Sheet cp - Metatarsal Fracture cp Forms: - Medication Reconciliation Form cp - Thank You Letter cp - Antibiotic Education cp - Prescription Opioid Use cp Prescriptions: - Naprosyn 500 mg Oral Tablet - take 1 tablet by ORAL route 2 times per day take with food; 20 tablet; Refills: cp 0, Product Selection Permitted Signatures: Dispatcher [employer] EDMS Conrado Joseph MD MD kdr Flo Rojas PA PA cp Gayle Cortez RN RN ap3 Izabela Smith RN RN tc5 Malena Peraza RN ss
[2021-03-04 17:26] VITALS: BP 133/79; TEMP 98.1; O2SAT 100
== END 2021-03-04 17:19 | disposition home or self-care (01) ==
LOC: ER 14:34
DX: S92.322A Displaced fracture of second metatarsal bone, left foot, initial encounter for closed fracture (principal); S92.332A Displaced fracture of third metatarsal bone, left foot, initial encounter for closed fracture; S92.342A Displaced fracture of fourth metatarsal bone, left foot, initial encounter for closed fracture; W19.XXXA Unspecified fall, initial encounter; I10 Essential (primary) hypertension
CPT/HCPCS: 99282

== ENCOUNTER 2022-08-28 13:29 | Emergency (ER) | payer OTHER ==
--- OUTSIDE RECORDS SUMMARY | 2022-08-28 13:36 | XMS REPORT | Continuity of Care Document ---
:1965 Author Organization Formerly [facility] t Address [address] [place] [address] Care Team Providers Name Role Phone Harshal Garner MD Primary Care Physician [phone] Nely WOODSON Attending Clinician Unavailable Ap Sanchez Attending Clinician Unavailable Anel Gray Attending Clinician Unavailable VICK EDWARDS Attending Clinician Unavailable JENNIFER MILTON Attending Clinician Unavailable VICK EDWARDS Admitting Clinician Unavailable JENNIFER MILTON Admitting Clinician Unavailable Payers Payer Name Policy Type Policy Number Effective Date Expiration Date S jamel [employer] C1 [id number] [facility] Cign[employer]Spr C1 [id number] [facility] Cign[employer]Spr C1 [id number] [facility] Medicare - [facility] Cigna[employer]Spr C1 [id number] [facility] - [facility] Cigna[employer]HealthSpr C1 [id number] [facility] Medicare - [facility] Problems Condition Condition Condition Status Onset Resolution Last Treating Co mments Source Name Details Category Date Date Treatment Clinician Date Hypokalemi Hypokalemi Disease Active 2017-[address] [facility] Acute Acute Disease Active 2017-[address] [facility] blood loss blood loss 0-31 Kalyn kes anemia anemia 00:00: [facility] Center Leukocytos Leukocytos Disease Active 2017-[address] [facility] is 0-[facility] Acute Acute Disease Active 2017-[address] [facility] [address] cholecysti cholecysti 0-27 Kalyn kes tis tis 00:00: [facility] 00 Center Septic Septic Disease Active 2017-[address] [facility] [address] shock shock 0-27 [facility] FRANCA (acute FRANCA (acute Disease Active 2017-[address] kidney kidney 0-27 [facility] injury) injury) 00:[facility] 00 Center Choledocho Choledocho Disease Active C [facility] lithiasis lithiasis Luke s with acute with acute Me dical cholecysti cholecysti Ce nter tis tis Cholangiti Cholangiti Disease Active [facility] Serum TSH Abnormal Problem Comm on level TSH [facility] [id number] Acquired Problem Comm on hypothyroi Spirit dism [facility] [id number] Discolorat Problem Co mmon ion of Spirit skin of [facility] lower leg [facility] [id number] Peripheral Problem Co mmon edema [facility] [id number] Environmen Problem Co mmon elise [facility] allergies [facility] [id number] Depression Problem Co mmon with Spirit anxiety [facility] Mental Mental Problem Common retardatio retardatio Sp yeyo n n [facility] [id number] Essential Problem Comm on hypertensi Spirit on [facility] [id number] Morbid Problem Common (severe) Spirit obesity - [facility] due to [facility] Allergies, Adverse Reactions, Alerts This patient has no known allergies or adverse reactions. Family History Family Member Diagnosis Comments Start Date Stop Date Source Maternal uncle Arthritis [facility] Natural mother Hypertension [facility] Paternal grandmother COPD [facility] Natural sister Cancer [facility] Natural sister Pancreatitis [facility] Natural father Hypertension [facility] Social History Social Habit Start Date Stop Date Quantity Comments Source History [facility] B[facility] of [facility] - Tobacco Use [facility] Alcohol intake 2018-11-28 2018-11-[address] [facility] [address] Tali es 00:00:00 00:00:00 non-drinker of Medical Ce nter alcohol (finding) Tobacco use and 2018-04-06 2018-04-06 Smokeless tobacco [facility] exposure [facility] non-user Medical Center History SDOH 2018-04-06 2018-04-[address] [facility] Alcohol Frequency 00:00:00 00:00:00 Medical Center Sex Ass[birth year] At [birth year] [facility] 00:00[facility]00 00:00:00 Hospital Smoking Status Start Date Stop Date Source Tobacco smoking consumption [facility] unknown Never Smoker [facility] Medications Ordered Filled Start Stop Current Ordering Indication Dosage Frequency Signature Comments Components Source Medication Medication Date Date Medication? Clinician (SIG) Name Name Levothyroxi Levothyroxi No QD Levothyrox ne Sodium ne Sodium 6-23 ine Sodium 25 MCG 25 MCG 00:00: 25 MCG 00 lisinopril- Yes 1{tbl} QD Take [address] hydroCHLORO 6-20 tablet by Tali es thiazide 10:45: mouth Medical ([place],[address] ESTORETIC) morning . 10-12.5 mg per tablet TURMERIC Yes QD Take by [facility] ORAL 6-20 mouth [facility] 10:45: daily. [address] Lisinopril- Lisinopril- Yes Anel 1/2 tablet [facility] Hydrochloro Hydrochloro [facility] thiazide thiazide - [facility] ZyrTEC ZyrTEC No 1{table QD ZyrTEC Allergy 10 Allergy 10 t} Allergy 10 MG MG MG Escitalopra Escitalopra No Escitalopr m Oxalate 5 m Oxalate 5 am Oxalate MG MG 5 MG Calcium Calcium No 1{table QD Calcium 500+D 500+D t_with_ 500+D 500-400 500-400 a_meal} 500-400 MG-UNIT MG-UNIT MG-UNIT Lisinopril- Lisinopril- No QD Lisinopril hydroCHLORO hydroCHLORO -hydroCHLO thiazide thiazide ROthiazide 20-12.5 MG 20-12.5 MG 20-12.5 MG Levothyroxi Levothyroxi No QD Levothyrox ne Sodium ne Sodium ine Sodium 75 MCG 75 MCG 75 MCG Hydrocortis Hydrocortis No 1{appli BID Hydrocorti one 1 % one 1 % cation_ sone 1 % to_affe cted_ar ea} Triamcinolo Triamcinolo No 1{appli BID Triamcinol ne ne cation_ one Acetonide Acetonide to_affe Acetonide 0.1 % 0.1 % cted_ar 0.1 % ea} Escitalopra Escitalopra No 1{table QD Escitalopr m Oxalate 5 m Oxalate 5 t} am Oxalate MG MG 5 MG Nystatin Nystatin No 1{appli BID Nystatin 226226 [id number] cation_ 699748 UNIT/GM UNIT/GM to_affe UNIT/GM cted_ar ea} ZyrTEC ZyrTEC No 1{table QD ZyrTEC Allergy 10 Allergy 10 t} Allergy 10 MG MG MG Escitalopra Escitalopra No Escitalopr m Oxalate 5 m Oxalate 5 am Oxalate MG MG 5 MG Calcium Calcium No 1{table QD Calcium 500+D 500+D t_with_ 500+D 500-400 500-400 a_meal} 500-400 MG-UNIT MG-UNIT MG-UNIT Levothyroxi Levothyroxi No QD Levothyrox ne Sodium ne Sodium ine Sodium 75 MCG 75 MCG 75 MCG Nystatin Nystatin No 1{appli BID Nystatin 228329 [id number] cation_ 689535 UNIT/GM UNIT/GM to_affe UNIT/GM cted_ar ea} Hydrocortis Hydrocortis No 1{appli BID Hydrocorti one 1 % one 1 % cation_ sone 1 % to_affe cted_ar ea} Triamcinolo Triamcinolo No 1{appli BID Triamcinol ne ne cation_ one Acetonide Acetonide to_affe Acetonide 0.1 % 0.1 % cted_ar 0.1 % ea} Escitalopra Escitalopra No 1{table QD Escitalopr m Oxalate 5 m Oxalate 5 t} am Oxalate MG MG 5 MG Lisinopril- Lisinopril- No QD Lisinopril hydroCHLORO hydroCHLORO -hydroCHLO thiazide thiazide ROthiazide 20-12.5 MG 20-12.5 MG 20-12.5 MG ZyrTEC ZyrTEC No 1{table QD ZyrTEC Allergy 10 Allergy 10 t} Allergy 10 MG MG MG Lisinopril- Lisinopril- No Lisinopril hydroCHLORO hydroCHLORO -hydroCHLO thiazide thiazide ROthiazide 20-12.5 MG 20-12.5 MG 20-12.5 MG Immune Immune No Immune Support - Support - Support - Escitalopra Escitalopra No 1{table QD Escitalopr m Oxalate 5 m Oxalate 5 t} am Oxalate MG MG 5 MG Lisinopril- Lisinopril- No QD Lisinopril hydroCHLORO hydroCHLORO -hydroCHLO thiazide thiazide ROthiazide 20-12.5 MG 20-12.5 MG 20-12.5 MG Levothyroxi Levothyroxi No QD Levothyrox ne Sodium ne Sodium ine Sodium 75 MCG 75 MCG 75 MCG Calcium Calcium No 1{table QD Calcium 500+D 500+D t_with_ 500+D 500-400 500-400 a_meal} 500-400 MG-UNIT MG-UNIT MG-UNIT Lisinopril- Lisinopril- No Lisinopril hydroCHLORO hydroCHLORO -hydroCHLO thiazide thiazide ROthiazide 20-12.5 MG 20-12.5 MG 20-12.5 MG Immune Immune No Immune Support - Support - Support - Escitalopra Escitalopra No 1{table QD Escitalopr m Oxalate 5 m Oxalate 5 t} am Oxalate MG MG 5 MG Lisinopril- Lisinopril- No QD Lisinopril hydroCHLORO hydroCHLORO -hydroCHLO thiazide thiazide ROthiazide 20-12.5 MG 20-12.5 MG 20-12.5 MG Levothyroxi Levothyroxi No QD Levothyrox ne Sodium ne Sodium ine Sodium 75 MCG 75 MCG 75 MCG Calcium Calcium No 1{table QD Calcium 500+D 500+D t_with_ 500+D 500-400 500-400 a_meal} 500-400 MG-UNIT MG-UNIT MG-UNIT Escitalopra Escitalopra No Escitalopr m Oxalate 5 m Oxalate 5 am Oxalate MG MG 5 MG Levothyroxi Levothyroxi No QD Levothyrox ne Sodium ne Sodium ine Sodium 50 MCG 50 MCG 50 MCG Calcium Calcium No 1{table QD Calcium 500+D 500+D t_with_ 500+D 500-400 500-400 a_meal} 500-400 MG-UNIT MG-UNIT MG-UNIT Escitalopra Escitalopra No 1{table QD Escitalopr m Oxalate 5 m Oxalate 5 t} am Oxalate MG MG 5 MG Lisinopril- Lisinopril- No QD Lisinopril hydroCHLORO hydroCHLORO -hydroCHLO thiazide thiazide ROthiazide 20-12.5 MG 20-12.5 MG 20-12.5 MG Lisinopril- Lisinopril- No Lisinopril hydroCHLORO hydroCHLORO -hydroCHLO thiazide thiazide ROthiazide 20-12.5 MG 20-12.5 MG 20-12.5 MG Immune Immune No Immune Support - Support - Support - Escitalopra Escitalopra No Escitalopr m Oxalate 5 m Oxalate 5 am Oxalate MG MG 5 MG Calcium Calcium No 1{table QD Calcium 500+D 500+D t_with_ 500+D 500-400 500-400 a_meal} 500-400 MG-UNIT MG-UNIT MG-UNIT Lisinopril- Lisinopril- No Lisinopril hydroCHLORO hydroCHLORO -hydroCHLO thiazide thiazide ROthiazide 20-12.5 MG 20-12.5 MG 20-12.5 MG Escitalopra Escitalopra No 1{table QD Escitalopr m Oxalate 5 m Oxalate 5 t} am Oxalate MG MG 5 MG Lisinopril- Lisinopril- No QD Lisinopril hydroCHLORO hydroCHLORO -hydroCHLO thiazide thiazide ROthiazide 20-12.5 MG 20-12.5 MG 20-12.5 MG Immune Immune No Immune Support - Support - Support - Levothyroxi Levothyroxi No QD Levothyrox ne Sodium ne Sodium ine Sodium 25 MCG 25 MCG 25 MCG Escitalopra Escitalopra No 1{table QD Escitalopr m Oxalate 5 m Oxalate 5 t} am Oxalate MG MG 5 MG Immune Immune No Immune Support - Support - Support - Calcium Calcium No 1{table QD Calcium 500+D 500+D t_with_ 500+D 500-400 500-400 a_meal} 500-400 MG-UNIT MG-UNIT MG-UNIT Lisinopril- Lisinopril- No QD Lisinopril hydroCHLORO hydroCHLORO -hydroCHLO thiazide thiazide ROthiazide 20-12.5 MG 20-12.5 MG 20-12.5 MG Levothyroxi Levothyroxi No Levothyrox ne Sodium ne Sodium ine Sodium 25 MCG 25 MCG 25 MCG Levothyroxi Levothyroxi No QD Levothyrox ne Sodium ne Sodium ine Sodium 25 MCG 25 MCG 25 MCG Escitalopra Escitalopra No 1{table QD Escitalopr m Oxalate 5 m Oxalate 5 t} am Oxalate MG MG 5 MG Immune Immune No Immune Support - Support - Support - Calcium Calcium No 1{table QD Calcium 500+D 500+D t_with_ 500+D 500-400 500-400 a_meal} 500-400 MG-UNIT MG-UNIT MG-UNIT Lisinopril- Lisinopril- No QD Lisinopril hydroCHLORO hydroCHLORO -hydroCHLO thiazide thiazide ROthiazide 20-12.5 MG 20-12.5 MG 20-12.5 MG Levothyroxi Levothyroxi No Levothyrox ne Sodium ne Sodium ine Sodium 25 MCG 25 MCG 25 MCG Levothyroxi Levothyroxi No QD Levothyrox ne Sodium ne Sodium ine Sodium 25 MCG 25 MCG 25 MCG Escitalopra Escitalopra No 1{table QD Escitalopr m Oxalate 5 m Oxalate 5 t} am Oxalate MG MG 5 MG Immune Immune No Immune Support - Support - Support - Calcium Calcium No 1{table QD Calcium 500+D 500+D t_with_ 500+D 500-400 500-400 a_meal} 500-400 MG-UNIT MG-UNIT MG-UNIT Lisinopril- Lisinopril- No QD Lisinopril hydroCHLORO hydroCHLORO -hydroCHLO thiazide thiazide ROthiazide 20-12.5 MG 20-12.5 MG 20-12.5 MG Levothyroxi Levothyroxi No Levothyrox ne Sodium ne Sodium ine Sodium 25 MCG 25 MCG 25 MCG Levothyroxi Levothyroxi No QD Levothyrox ne Sodium ne Sodium ine Sodium 25 MCG 25 MCG 25 MCG Escitalopra Escitalopra No 1{table QD Escitalopr m Oxalate 5 m Oxalate 5 t} am Oxalate MG MG 5 MG Immune Immune No Immune Support - Support - Support - Calcium Calcium No 1{table QD Calcium 500+D 500+D t_with_ 500+D 500-400 500-400 a_meal} 500-400 MG-UNIT MG-UNIT MG-UNIT Lisinopril- Lisinopril- No Lisinopril hydroCHLORO hydroCHLORO -hydroCHLO thiazide thiazide ROthiazide 20-12.5 MG 20-12.5 MG 20-12.5 MG Levothyroxi Levothyroxi No Levothyrox ne Sodium ne Sodium ine Sodium 25 MCG 25 MCG 25 MCG Escitalopra Escitalopra No 1{table QD Escitalopr m Oxalate 5 m Oxalate 5 t} am Oxalate MG MG 5 MG Calcium Calcium No 1{table QD Calcium 500+D 500+D t_with_ 500+D 500-400 500-400 a_meal} 500-400 MG-UNIT MG-UNIT MG-UNIT Levothyroxi Levothyroxi No QD Levothyrox ne Sodium ne Sodium ine Sodium 25 MCG 25 MCG 25 MCG Levothyroxi Levothyroxi No Levothyrox ne Sodium ne Sodium ine Sodium 25 MCG 25 MCG 25 MCG Immune Immune No Immune Support - Support - Support - Lisinopril- Lisinopril- No Lisinopril hydroCHLORO hydroCHLORO -hydroCHLO thiazide thiazide ROthiazide 20-12.5 MG 20-12.5 MG 20-12.5 MG Escitalopra Escitalopra No 1{table QD Escitalopr m Oxalate 5 m Oxalate 5 t} am Oxalate MG MG 5 MG Levothyroxi Levothyroxi No QD Levothyrox ne Sodium ne Sodium ine Sodium 25 MCG 25 MCG 25 MCG Calcium Calcium No 1{table QD Calcium 500+D 500+D t_with_ 500+D 500-400 500-400 a_meal} 500-400 MG-UNIT MG-UNIT MG-UNIT Levothyroxi Levothyroxi No Levothyrox ne Sodium ne Sodium ine Sodium 25 MCG 25 MCG 25 MCG Immune Immune No Immune Support - Support - Support - Lisinopril- Lisinopril- No Lisinopril hydroCHLORO hydroCHLORO -hydroCHLO thiazide thiazide ROthiazide 20-12.5 MG 20-12.5 MG 20-12.5 MG Escitalopra Escitalopra No 1{table QD Escitalopr m Oxalate 5 m Oxalate 5 t} am Oxalate MG MG 5 MG Levothyroxi Levothyroxi No QD Levothyrox ne Sodium ne Sodium ine Sodium 75 MCG 75 MCG 75 MCG ZyrTEC ZyrTEC No 1{table QD ZyrTEC Allergy 10 Allergy 10 t} Allergy 10 MG MG MG Nystatin Nystatin No 1{appli BID Nystatin [id number] cation_ 350323 UNIT/GM UNIT/GM to_affe UNIT/GM cted_ar ea} Hydrocortis Hydrocortis No 1{appli BID Hydrocorti one 1 % one 1 % cation_ sone 1 % to_affe cted_ar ea} Calcium Calcium No 1{table QD Calcium 500+D 500+D t_with_ 500+D 500-400 500-400 a_meal} 500-400 MG-UNIT MG-UNIT MG-UNIT Lisinopril- Lisinopril- No QD Lisinopril hydroCHLORO hydroCHLORO -hydroCHLO thiazide thiazide ROthiazide 20-12.5 MG 20-12.5 MG 20-12.5 MG Triamcinolo Triamcinolo No 1{appli BID Triamcinol ne ne cation_ one Acetonide Acetonide to_affe Acetonide 0.1 % 0.1 % cted_ar 0.1 % ea} Escitalopra Escitalopra No 1{table QD Escitalopr m Oxalate 5 m Oxalate 5 t} am Oxalate MG MG 5 MG Levothyroxi Levothyroxi No QD Levothyrox ne Sodium ne Sodium ine Sodium 75 MCG 75 MCG 75 MCG ZyrTEC ZyrTEC No 1{table QD ZyrTEC Allergy 10 Allergy 10 t} Allergy 10 MG MG MG Nystatin Nystatin No 1{appli BID Nystatin [id number] cation_ 148146 UNIT/GM UNIT/GM to_affe UNIT/GM cted_ar ea} Hydrocortis Hydrocortis No 1{appli BID Hydrocorti one 1 % one 1 % cation_ sone 1 % to_affe cted_ar ea} Calcium Calcium No 1{table QD Calcium 500+D 500+D t_with_ 500+D 500-400 500-400 a_meal} 500-400 MG-UNIT MG-UNIT MG-UNIT Lisinopril- Lisinopril- No QD Lisinopril hydroCHLORO hydroCHLORO -hydroCHLO thiazide thiazide ROthiazide 20-12.5 MG 20-12.5 MG 20-12.5 MG Triamcinolo Triamcinolo No 1{appli BID Triamcinol ne ne cation_ one Acetonide Acetonide to_affe Acetonide 0.1 % 0.1 % cted_ar 0.1 % ea} Escitalopra Escitalopra No 1{table QD Escitalopr m Oxalate 5 m Oxalate 5 t} am Oxalate MG MG 5 MG Levothyroxi Levothyroxi No QD Levothyrox ne Sodium ne Sodium ine Sodium 75 MCG 75 MCG 75 MCG ZyrTEC ZyrTEC No 1{table QD ZyrTEC Allergy 10 Allergy 10 t} Allergy 10 MG MG MG Nystatin Nystatin No 1{appli BID Nystatin 127069 [id number] cation_ 872148 UNIT/GM UNIT/GM to_affe UNIT/GM cted_ar ea} Hydrocortis Hydrocortis No 1{appli BID Hydrocorti one 1 % one 1 % cation_ sone 1 % to_affe cted_ar ea} Calcium Calcium No 1{table QD Calcium 500+D 500+D t_with_ 500+D 500-400 500-400 a_meal} 500-400 MG-UNIT MG-UNIT MG-UNIT Lisinopril- Lisinopril- No QD Lisinopril hydroCHLORO hydroCHLORO -hydroCHLO thiazide thiazide ROthiazide 20-12.5 MG 20-12.5 MG 20-12.5 MG Triamcinolo Triamcinolo No 1{appli BID Triamcinol ne ne cation_ one Acetonide Acetonide to_affe Acetonide 0.1 % 0.1 % cted_ar 0.1 % ea} Escitalopra Escitalopra No Escitalopr m Oxalate 5 m Oxalate 5 am Oxalate MG MG 5 MG Calcium Calcium No 1{table QD Calcium 500+D 500+D t_with_ 500+D 500-400 500-400 a_meal} 500-400 MG-UNIT MG-UNIT MG-UNIT Lisinopril- Lisinopril- No QD Lisinopril hydroCHLORO hydroCHLORO -hydroCHLO thiazide thiazide ROthiazide 20-12.5 MG 20-12.5 MG 20-12.5 MG Levothyroxi Levothyroxi No QD Levothyrox ne Sodium ne Sodium ine Sodium 75 MCG 75 MCG 75 MCG Hydrocortis Hydrocortis No 1{appli BID Hydrocorti one 1 % one 1 % cation_ sone 1 % to_affe cted_ar ea} Triamcinolo Triamcinolo No 1{appli BID Triamcinol ne ne cation_ one Acetonide Acetonide to_affe Acetonide 0.1 % 0.1 % cted_ar 0.1 % ea} Escitalopra Escitalopra No 1{table QD Escitalopr m Oxalate 5 m Oxalate 5 t} am Oxalate MG MG 5 MG Nystatin Nystatin No 1{appli BID Nystatin 189510 195542 cation_ 886008 UNIT/GM UNIT/GM to_affe UNIT/GM cted_ar ea} Immunizations Ordered Immunization Filled Immunization Date Status Commen ts Source Name Name Flucelvax - single Flucelvax - single 2022-04-06 Completed [facility] dose syringe dose syringe 14:38:00 - [facility] Flucelvax - single Flucelvax - single 2022-04-06 Completed [facility] dose syringe dose syringe 14:38:00 - [facility] Flucelvax - single Flucelvax - single 2022-04-06 Completed [facility] dose syringe dose syringe 14:38:00 - [facility] Flucelvax - single Flucelvax - single 2022-04-06 Completed [facility] dose syringe dose syringe 14:38:00 - [facility] Flucelvax - single Flucelvax - single 2022-04-06 Completed [facility] dose syringe dose syringe 14:38:00 - [facility] Flucelvax - single Flucelvax - single 2022-04-06 Completed [facility] dose syringe dose syringe 14:38:00 - [facility] Afluria Afluria 2021-03-31 Completed [facility] 15:48:00 - [facility] Afluria Afluria 2021-03-31 Completed [facility] 15:48:00 - [facility] Afluria Afluria 2021-03-31 Completed [facility] 15:48:00 - [facility] Afluria Afluria 2021-03-31 Completed [facility] 15:48:00 - [facility] Afluria Afluria 2021-03-31 Completed [facility] 15:48:00 - [facility] Afluria Afluria 2021-03-31 Completed [facility] 15:48:00 - [facility] Afluria Afluria 2021-03-31 Completed [facility] 15:48:00 - [facility] Afluria Afluria 2021-03-31 Completed [facility] 15:48:00 - [facility] Afluria Afluria 2021-03-31 Completed [facility] 15:48:00 - [facility] Afluria Afluria 2021-03-31 Completed [facility] 15:48:00 - [facility] Afluria Afluria 2021-03-31 Completed [facility] 15:48:00 - [facility] Afluria Afluria 2021-03-31 Completed [facility] 15:48:00 - [facility] Afluria Afluria 2021-03-31 Completed [facility] 15:48:00 - [facility] Flucelvax - single Flucelvax - single 2020-03-04 Completed [facility] dose syringe dose syringe 15:31:00 - [facility] Flucelvax - single Flucelvax - single 2020-03-04 Completed [facility] dose syringe dose syringe 15:31:00 - [facility] Flucelvax - single Flucelvax - single 2020-03-04 Completed [facility] dose syringe dose syringe 15:31:00 - [facility] Flucelvax - single Flucelvax - single 2020-03-04 Completed [facility] dose syringe dose syringe 15:31:00 - [facility] Flucelvax - single Flucelvax - single 2020-03-04 Completed [facility] dose syringe dose syringe 15:31:00 - [facility] Flucelvax - single Flucelvax - single 2020-03-04 Completed [facility] dose syringe dose syringe 15:31:00 - [facility] Flucelvax - single Flucelvax - single 2020-03-04 Completed [facility] dose syringe dose syringe 15:31:00 - [facility] Flucelvax - single Flucelvax - single 2020-03-04 Completed [facility] dose syringe dose syringe 15:31:00 - [facility] Flucelvax - single Flucelvax - single 2020-03-04 Completed [facility] dose syringe dose syringe 15:31:00 - [facility] Flucelvax - single Flucelvax - single 2020-03-04 Completed [facility] dose syringe dose syringe 15:31:00 - [facility] Flucelvax - single Flucelvax - single 2020-03-04 Completed [facility] dose syringe dose syringe 15:31:00 - [facility] Flucelvax - single Flucelvax - single 2020-03-04 Completed [facility] dose syringe dose syringe 15:31:00 - [facility] Flucelvax - single Flucelvax - single 2020-03-04 Completed [facility] dose syringe dose syringe 15:31:00 - [facility] Flucelvax - single Flucelvax - single 2020-03-04 Completed [facility] dose syringe dose syringe 15:31:00 - [facility] Flucelvax - single Flucelvax - single 2020-03-04 Completed [facility] dose syringe dose syringe 15:31:00 - [facility] Flucelvax - single Flucelvax - single 2020-03-04 Completed [facility] dose syringe dose syringe 15:31:00 - [facility] Fluzone Fluzone 2018-03-20 Completed [facility] 10:28:00 - [facility] Fluzone Fluzone 2018-03-20 Completed [facility] 10:28:00 - [facility] Fluzone Fluzone 2018-03-20 Completed [facility] 10:28:00 - [facility] Fluzone Fluzone 2018-03-20 Completed [facility] 10:28:00 - [facility] Fluzone Fluzone 2018-03-20 Completed [facility] 10:28:00 - [facility] Fluzone Fluzone 2018-03-20 Completed [facility] 10:28:00 - [facility] Fluzone Fluzone 2018-03-20 Completed [facility] 10:: - [facility] Fluzone Fluzone 2018-03-20 Completed [facility] 10:: - [facility] Fluzone Fluzone 2018-03-20 Completed [facility] 10:: - [facility] Fluzone Fluzone 2018-03-20 Completed [facility] 10:: - [facility] Fluzone Fluzone 2018-03-20 Completed [facility] 10:: - [facility] Fluzone Fluzone 2018-03-20 Completed [facility] 10:: - [facility] Fluzone Fluzone 2018-03-20 Completed [facility] 10:: - [facility] Fluzone Fluzone 2018-03-20 Completed [facility] 10:: - [facility] Fluzone Fluzone 2018-03-20 Completed [facility] 10:: - [facility] Fluzone Fluzone 2018-03-20 Completed [facility] 10:: - [facility] Vital Signs Vital Name Observation Time Observation Value Comments Source height 2022-04-06 13:00:00 64.50 [in_i] [facility] weight 2022-04-06 13:00:00 327 [lb_av] [facility] temperature 2022-04-06 13:00:00 97.4 [degF] [facility] bmi 2022-04-06 13:00:00 55.26 kg/m2 [facility] oximetry 2022-04-06 13:00:00 100 % [facility] respiratory rate 2022-04-06 13:00:00 16 /min Comm on [facility] blood pressure 2022-04-06 13:00:00 133 mm[Hg] [facility] systolic [facility] blood pressure 2022-04-06 13:00:00 67 mm[Hg] [facility] - diastolic [facility] height 2022-04-06 13:20:00 64.50 [in_i] Common S [facility] weight 2022-04-06 13:20:00 327 [lb_av] [facility] temperature 2022-04-06 13:20:00 97.4 [degF] Common [facility] bmi 2022-04-06 13:20:00 55.26 kg/m2 Common [facility] oximetry 2022-04-06 13:20:00 100 % Common [facility] respiratory rate 2022-04-06 13:20:00 16 /min Comm on [facility] blood pressure 2022-04-06 13:20:00 133 mm[Hg] Common [facility] - systolic [facility] blood pressure 2022-04-06 13:20:00 67 mm[Hg] [facility] height 2021-10-03 11:20:00 67 [in_i] Common [facility] weight 2021-10-03 11:20:00 328.8 [lb_av] [facility] temperature 2021-10-03 11:20:00 97.8 [degF] Common [facility] bmi 2021-10-03 11:20:00 51.49 kg/m2 [facility] oximetry 2021-10-03 11:20:00 97 % Common S [facility] respiratory rate 2021-10-03 11:20:00 16 /min Comm on [facility] blood pressure 2021-10-03 11:20:00 117 mm[Hg] Common [facility] - systolic [facility] blood pressure 2021-10-03 11:20:00 65 mm[Hg] [facility] - diastolic [facility] height 2021-07-04 10:00:00 67 [in_i] [facility] weight 2021-07-04 10:00:00 314 [lb_av] Common [facility] temperature 2021-07-04 10:00:00 97.7 [degF] [facility] bmi 2021-07-04 10:00:00 49.17 kg/m2 [facility] oximetry 2021-07-04 10:00:00 100 % [facility] respiratory rate 2021-07-04 10:00:00 16 /min Comm on [facility] blood pressure 2021-07-04 10:00:00 122 mm[Hg] Common [facility] - systolic [facility] blood pressure 2021-07-04 10:00:00 70 mm[Hg] [facility] diastolic [facility] height 2021-03-31 13:40:00 67 [in_i] [facility] weight 2021-03-31 13:40:00 273 [lb_av] [facility] temperature 2021-03-31 13:40:00 97.8 [degF] [facility] bmi 2021-03-31 13:40:00 42.75 kg/m2 [facility] oximetry 2021-03-31 13:40:00 100 % [facility] respiratory rate 2021-03-31 13:40:00 18 /min Comm on [facility] blood pressure 2021-03-31 13:40:00 130 mm[Hg] Common [facility] systolic [facility] blood pressure 2021-03-31 13:40:00 80 mm[Hg] Common [facility] diastolic [facility] Procedures This patient has no known procedures. Plan of Care Planned Activity Planned Date Details Comments Source Future Scheduled 2022-08-28 COVID-19 VACCINE (#1) [facility] Test 13:31:58 [code = COVID-19 VACCINE (#1)] Future Scheduled 2022-08-28 Screening for [facility] Test 13:31:58 malignant neoplasm of cervix (procedure) [code = 182487674] Future Scheduled 2022-08-28 BREAST CANCER [facility] Test 13:31:58 SCREENING [code = BREAST CANCER SCREENING] Future Scheduled 2022-08-28 COLONOSCOPY SCREENING [facility] Test 13:31:58 [code = COLONOSCOPY SCREENING] Future Scheduled 2022-08-28 SHINGLES VACCINES (1 Met [facility] Test 13:31:58 of 2) [code = SHINGLES VACCINES (1 of 2)] Future Scheduled 2022-08-28 INFLUENZA VACCINE [facility] Test 13:31:58 [code = INFLUENZA VACCINE] Encounters Start End Encounter Admission Attending Care Care Encounter Source Date/Time Date/Time Type Type Clinicians Facility Department ID 2022-06-19 Outpatient WOODSON, Na STLMLC STLMLC [id number] Common 15:48:01 [id number] [facility] 2022-05-10 Outpatient Woodson, Na STLMLC STLMLC [id number] Common 15:31:00 [facility] 2022-04-04 Outpatient Woodson, Na STLMLC STLMLC [id number] Common 15:24:01 [facility] 2021-10-03 Outpatient Woodson, Na STLMLC STLMLC [id number] Common 10:56:01 [facility] 2021-07-06 Outpatient Woodson, Na STLMLC STLMLC [id number] Common 14:39:13 [facility] 2021-07-06 Outpatient Woodson, Na STLMLC STLMLC [id number] Common 14:02:10 [id number] [facility] 2021-07-06 Outpatient Woodson, Na STLMLC STLMLC [id number] Common 13:53:22 [id number] [facility] 2021-07-06 Outpatient Woodson, Na STLMLC STLMLC [id number] Common 13:46:37 [id number] [facility] 2021-07-06 Outpatient Woodson, Na STLMLC STLMLC [id number] Common 13:45:31 [id number] [facility] 2021-07-06 Outpatient Woodson, Na STLMLC STLMLC [id number] Common 12:44:11 [id number] [facility] 2021-07-06 Outpatient STLMLC STLMLC [id number] Common 12:23:12 [id number] [facility] 2021-07-06 Outpatient Ap Sanchez STLMLC STLMLC [id number] Common 12:08:17 [id number] [facility] 2021-07-06 Outpatient Millender, STLMLC STLMLC [id number] Common 11:48:16 Anel [id number] [facility] 2021-07-06 Outpatient Millender, STLMLC STLMLC [id number] Common 11:13:29 Anel [id number] [facility] 2022-06-19 2022-06-19 (TEL) STLMLC STLMLC [id number] Co mmon 00:00:00 00:00:00 [facility] 2022-05-11 2022-05-11 OL DIG E/M STLMLC STLMLC [id number] Common 00:00:00 00:00:00 SVC 11-20 Spir it MIN [facility] 2022-05-10 2022-05-10 (TEL) STLMLC STLMLC [id number] Co mmon 00:00:00 00:00:00 [facility] 2022-04-19 2022-04-19 (TEL) STLMLC STLMLC [id number] Co mmon 00:00:00 00:00:00 [facility] 2022-04-06 2022-04-06 SUB ANNUAL STLMLC STLMLC [id number] Common 00:00:00 00:00:00 MCR [facility] - [facility] VISIT [facility] 2022-04-06 2022-04-06 OFFICE STLMLC STLMLC [id number] Co mmon 00:00:00 00:00:00 VISIT EST Spir it PT LEVEL 3 - [facility] 2021-11-30 2021-11-30 (TEL) STLMLC STLMLC [id number] Co mmon 00:00:00 00:00:00 [facility] 2021-10-03 2021-10-03 OFFICE STLMLC STLMLC [id number] Co mmon 00:00:00 00:00:00 VISIT [facility] ESTAB PT - CHI LEVEL 4 [facility] 2021-07-04 2021-07-04 OFFICE STLMLC STLMLC [id number] Co mmon 00:00:00 00:00:00 VISIT [facility] ESTAB PT - CHI LEVEL 4 [facility] 2021-06-23 2021-06-23 (TEL) STLMLC STLMLC [id number] Co mmon 00:00:00 00:00:00 [facility] 2021-06-09 2021-06-09 (TEL) STLMLC STLMLC [id number] Co mmon 00:00:00 00:00:00 [facility] 2021-04-01 2021-04-01 (TEL) STLMLC STLMLC [id number] Co mmon 00:00:00 00:00:00 [facility] 2021-03-31 2021-03-31 OFFICE STLMLC STLMLC [id number] Co mmon 00:00:00 00:00:00 VISIT [facility] PT - CHI LEVEL 4 [facility] 2021-03-15 2021-03-15 (TEL) STLMLC STLMLC [id number] Co mmon 00:00:00 00:00:00 [facility] 2021-03-04 2021-03-04 (TEL) STLMLC STLMLC [id number] Co mmon 00:00:00 00:00:00 [facility] 2021-02-16 2021-02-16 OL DIG E/M STLMLC STLMLC [id number] Common 00:00:00 00:00:00 C 11-20 Spir it [facility] 2020 2020 Outpatient STLMLC STLMLC [id number] Common 00:00:00 00:00:00 [facility] 2020-09-20 2020-09-20 Outpatient STLMLC STLMLC [id number] Common 00:00:00 00:00:00 [facility] 2020-09-02 2020-09-02 Outpatient STLMLC STLMLC [id number] Common 00:00:00 00:00:00 [facility] 2020-09-02 2020-09-02 Outpatient STLMLC STLMLC [id number] Common 00:00:00 00:00:00 [facility] 2020-03-04 2020-03-04 Outpatient STLMLC STLMLC [id number] Common 00:00:00 00:00:00 [facility] 2019-09-19 2019-09-19 [facility] [id number] Common 14:35:00 14:35:00 t [facility] [address] [facility] 2019-08-29 2019-08-29 [facility] [id number] Common 09:33:00 09:33:[address] [facility] 2019-08-25 2019-08-25 [facility] [id number] Common 09:45:00 09:45:[address] [facility] Results Test Description Test Time Test Comments Results Result [facility] e Comments [place], ERCP 2018-11-28 Reason for FINAL REPORT PATIENT 10:06:00 exam:->Biliary ID: [id number] Obstruction Intraoperative fluoroscopy. CLINICAL HISTORY: Biliary Obstruction. FINDINGS: Five fluoroscopically acquired images were acquired by the referring physician. An intraoperative verbal report was not requested. Fluoroscopy was not performed by the undersigned. Fluoroscopy time: 5.5 minutes. Five images. Signed: Crow Almanzar MDReport Verified Date/Time: 11/28/2018 10:06:37 Reading Location: [facility] B1 C013Y CT Body Reading Room UE EXAM 2018-08-19 Surgical Pathology 12:44:00 Report Case: [id number] Authorizing Provider: Vick Edwards MD Collected: 08/15/2018 1308 Ordering Location: [facility] Endoscopy Received: 08/15/2018 1618 Services Pathologist: Mac Coates MD Specimen: Common Bile Duct, DISTAL CBD SPY BITE COMMON BILE DUCT BIOPSY- EROSION WITH SEVERE ACUTE AND CHRONIC INFLAMMATION- GRANULATION TISSUE WITH REACTIVE CHANGES- CARCINOMA NOT IDENTIFIED Signing Pathologist Direct Phone Line: [phone] abraham signed by Mac Coates MD on 08/19/2018 at 12:44 [id number], gastrointestinal tract imaging abnormality Distal common bile duct SpyBite biopsyThe specimen is received in a formalin-filled container labeled with the patient's information and labeled "distal common bile duct SpyBite biopsy" and consists of three fragments of red soft tissue ranging from 0.1 to 0.3 cm, submitted entirely in A1. CG/ew Performed CYTOLOGY 2018-08-16 Medical Cytology 18:30:00 Report Case: [id number] Authorizing Provider: Vick Edwards MD Collected: 08/15/2018 1309 Ordering Location: [facility] Endoscopy Received: 08/15/2018 1400 Services Pathologist: Rosaura Bañuelos MD Specimen: Common Bile Duct, CBD aspirate COMMON BILE DUCT ASPIRATE (CYTOSPINS AND CELL BLOCK): - NEGATIVE FOR MALIGNANCY PREDOMINANTLY BILE AND FILAMENTOUS BACTERIA Signing Pathologist Direct Phone Line: [phone] abraham signed by Rosaura Bañuelos MD on 08/16/2018 at 6:30 [id number], [id number], bile duct disorderCOMMON BILE DUCT ASPIRATEPrepared cell block(A2) using collodion bag and 4 cytospins from 8 mls light brown fluidCollected: [id number]: [id number] [facility], Department of Pathology, [address] [place] [address], [facility], [address] [place] [address], [facility], Department of Pathology, [address] [place] [address], CYTOLOGY REQUEST 2018-08-15 15:01:00 Test Item Value Reference Range Interpretation Comme nts CYTOLOGY RESULT POINTER (BEAKER) (test code = 2629) See Separate Re port FL, [id number] 13:44:00Reason for exam:->jaundice,abnormal imagingFINAL REPORT TECHNIQUE: Fluoroscopic images from endoscopic retrograde cholangiopancreatography. INDICATION: 52-year-old woman with jaundice. COMPARISON: ERCP 04/12/2018. IMPRESSION:Fluoroscopic images from endoscopic retrograde cholangiopancreatography, not obtained by the undersigned. Please refer to endoscopy note for more details of the procedure and findings. Fluoroscopy time: 2.3 minutesNumber of images: 5 Signed: Christen Rodriguez MDReport Verified Date/Time: 08/15/2018 13:44:36 Reading Location: [address] Radiology Reading Room FUNGUS CULTURE + [id number] 17:09:00 Test Item Value Reference Range Interpretation Comments CULTURE (BEAKER) A <1+ Same or ganism has (test code = been isolated f rom 1095) culture(s) of t he same body site and collection date . Repeat identification performed only after consultation wi th the clinical microb iology laboratory.Refe r to previous cultur e ofCandida dubli niensis FUNGUS SMEAR No fungi seen (BEAKER) (test code = 1406) NM, [id number] 09:34:00Reason for exam:->bile duct stonesIs the patient ?->N/AWhen was patient's last menstrual cycle?->03/19/18 FLUOROSCOPIC UNIT UTILIZED-NO INTERPRETATION REQUESTED. ANAEROBIC CULTURE 2018-04-23 04:15:00 Test Item Value Reference Range Interpretation Comments CULTURE (BEAKER) (test No anaerobes isolated code = 1095) SURGICALLY OBTAINED CULTURE + GRAM [id number] 09:47:00 Test Item Value Reference Interpretation Comments Range CULTURE (BEAKER) (test A <1+ C andida code = 1095) dubliniensis CULTURE (BEAKER) (test ESCHERICHIA COLI A < 1+ Escherichia code = 1095) coli Amikacin (test code = S 1) Ampicillin + Sulbactam S (test code = 6) Aztreonam (test code = S 32) Cefepime (test code = S 51) Cefoxitin (test code = S 68) Ceftazidime (test code S = 27) Ceftriaxone (test code S = 52) Ertapenem (test code = S 38) Gentamicin (test code S = 18) Levofloxacin (test S code = 22) Meropenem (test code = S 34) Nitrofurantoin (test S code = 23) Piperacillin + S Tazobactam (test code = 29) Tetracycline (test S code = 2) Tobramycin (test code S = 25) Trimethoprim + S Sulfamethoxazole (test code = 47) GRAM STAIN RESULT 1+ WBCs (AKER) (test code = 1123) GRAM STAIN RESULT No organisms seen (AKER) (test code = 286277) POCT-GLUCOSE [id number] 07:47:00 Test Item Value Reference Range Interpretation Comments POC-GLUCOSE METER 92 mg/dL 70-[address] [facility] 6720 (BANNER) (test code = [facility] [address] 1538) COMPREHENSIVE METABOLIC [id number] 07:04:00 Test Item Value Reference Range Interpretation Comments TOTAL PROTEIN 5.4 gm/dL 6.0-8.3 L (BEAKER) (test code = 770) ALBUMIN (BEAKER) 2.4 g/dL 3.5-5.0 L (test code = 1145) ALKALINE PHOSPHATASE 113 U/L 40-150 (BEAKER) (test code = 346) BILIRUBIN TOTAL 0.9 mg/dL 0.2-1.2 (BEAKER) (test code = 377) SODIUM (BEAKER) (test 144 meq/L 136-145 code = 381) POTASSIUM (BEAKER) 3.4 meq/L 3.5-5.1 L (test code = 379) CHLORIDE (BEAKER) 111 meq/L 98-107 H (test code = 382) CO2 (BEAKER) (test 25 meq/L 22-29 code = 355) BLOOD UREA NITROGEN 7 mg/dL 7-21 (BEAKER) (test code = 354) CREATININE (BEAKER) 0.89 mg/dL 0.57-1.25 (test code = 358) GLUCOSE RANDOM 96 mg/dL 70-105 (BEAKER) (test code = 652) CALCIUM (BEAKER) 7.9 mg/dL 8.4-10.2 L (test code = 697) AST (SGOT) (BEAKER) 14 U/L 5-34 (test code = 353) ALT (SGPT) (BEAKER) 12 U/L 6-55 (test code = 347) EGFR (BEAKER) (test 67 mL/min/1.73 ESTIMA MILAN GFR IS code = 1092) sq m NOT ACCURATE CREATININE CLEARANCE IN PREDICTING GLOMERULAR FILTRATION RATE . ESTIMATED GFR I S NOT APPLICABLE FOR DIALYSIS PATIEN TS. [id number] 06:58:00 Test Item Value Reference Range Interpretation Comments PHOSPHORUS (BEAKER) (test code = 3.7 mg/dL 2.3-4.7 604) [id number] 06:58:00 Test Item Value Reference Range Interpretation Comments MAGNESIUM (BEAKER) (test code = 1.3 mg/dL 1.6-2.6 L 627) CALCIUM, [id number] 05:43:00 Test Item Value Reference Range Interpretation Comments CALCIUM IONIZED (BEAKER) (test 1.02 mmol/L 1.12-1.27 L code = 698) PH, BLOOD (BEAKER) (test code = 7.42 1810) CBC W/PLT COUNT & AUTO [id number] 05:12:00 Test Item Value Reference Range Interpretation Comments WHITE BLOOD CELL COUNT (BEAKER) 5.5 K/ L 3.5-10.5 (test code = 775) RED BLOOD CELL COUNT (BEAKER) 3.10 M/ L 3.93-5.22 L (test code = 761) HEMOGLOBIN (BEAKER) (test code = 8.8 GM/DL 11.2-15.7 L 410) HEMATOCRIT (BEAKER) (test code = 28.3 % 34.1-44.9 L 411) MEAN CORPUSCULAR VOLUME (BEAKER) 91.3 fL 79.4-94.8 (test code = 753) MEAN CORPUSCULAR HEMOGLOBIN 28.4 pg 25.6-32.2 (BEAKER) (test code = 751) MEAN CORPUSCULAR HEMOGLOBIN CONC 31.1 GM/DL 32.2-35.5 L (BEAKER) (test code = 752) RED CELL DISTRIBUTION WIDTH 17.5 % 11.7-14.4 H (BEAKER) (test code = 412) PLATELET COUNT (BEAKER) (test 193 K/CU MM 150-450 code = 756) MEAN PLATELET VOLUME (BEAKER) 9.8 fL 9.4-12.3 (test code = 754) NUCLEATED RED BLOOD CELLS 0 /100 WBC 0-0 (BEAKER) (test code = 413) NEUTROPHILS RELATIVE PERCENT 64 % (BEAKER) (test code = 429) LYMPHOCYTES RELATIVE PERCENT 21 % (BEAKER) (test code = 430) MONOCYTES RELATIVE PERCENT 10 % (BEAKER) (test code = 431) EOSINOPHILS RELATIVE PERCENT 4 % (BEAKER) (test code = 432) BASOPHILS RELATIVE PERCENT 1 % (BEAKER) (test code = 437) NEUTROPHILS ABSOLUTE COUNT 3.49 K/ L 1.56-6.13 (BEAKER) (test code = 670) LYMPHOCYTES ABSOLUTE COUNT 1.14 K/ L 1.18-3.74 L (BEAKER) (test code = 414) MONOCYTES ABSOLUTE COUNT (BEAKER) 0.53 K/ L 0.24-0.36 H (test code = 415) EOSINOPHILS ABSOLUTE COUNT 0.23 K/ L 0.04-0.36 (BEAKER) (test code = 416) BASOPHILS ABSOLUTE COUNT (BEAKER) 0.06 K/ L 0.01-0.08 (test code = 417) IMMATURE GRANULOCYTES-RELATIVE 0 % 0-1 PERCENT (BEAKER) (test code = 2801) POCT-GLUCOSE [id number] 12:49:00 Test Item Value Reference Range Interpretation Comments POC-GLUCOSE METER 128 mg/dL 70-[address] [facility] 6720 (BEAKER) (test code = [place] 1538) [address] COMPREHENSIVE METABOLIC [id number] 08:36:00 Test Item Value Reference Range Interpretation Comments TOTAL PROTEIN 5.2 gm/dL 6.0-8.3 L (BEAKER) (test code = 770) ALBUMIN (BEAKER) 2.3 g/dL 3.5-5.0 L (test code = 1145) ALKALINE PHOSPHATASE 117 U/L 40-150 (BEAKER) (test code = 346) BILIRUBIN TOTAL 0.8 mg/dL 0.2-1.2 (BEAKER) (test code = 377) SODIUM (BEAKER) (test 142 meq/L 136-145 code = 381) POTASSIUM (BEAKER) 3.7 meq/L 3.5-5.1 (test code = 379) CHLORIDE (BEAKER) 111 meq/L 98-107 H (test code = 382) CO2 (BEAKER) (test 25 meq/L 22-29 code = 355) BLOOD UREA NITROGEN 9 mg/dL 7-21 (BEAKER) (test code = 354) CREATININE (BEAKER) 1.01 mg/dL 0.57-1.25 (test code = 358) GLUCOSE RANDOM 89 mg/dL 70-105 (BEAKER) (test code = 652) CALCIUM (BEAKER) 7.8 mg/dL 8.4-10.2 L (test code = 697) AST (SGOT) (BEAKER) 16 U/L 5-34 (test code = 353) ALT (SGPT) (BEAKER) 13 U/L 6-55 (test code = 347) EGFR (BEAKER) (test 58 mL/min/1.73 ESTIMA MILAN GFR IS code = 1092) sq m NOT ACCURATE CREATININE CLEARANCE IN PREDICTING GLOMERULAR FILTRATION RATE . ESTIMATED GFR I S NOT APPLICABLE FOR DIALYSIS PATIEN TS. [id number] 08:26:00 Test Item Value Reference Range Interpretation Comments PHOSPHORUS (BEAKER) (test code = 3.5 mg/dL 2.3-4.7 604) [id number] 08:26:00 Test Item Value Reference Range Interpretation Comments MAGNESIUM (BEAKER) (test code = 1.5 mg/dL 1.6-2.6 L 627) POCT-GLUCOSE [id number] 07:29:00 Test Item Value Reference Range Interpretation Comments POC-GLUCOSE METER 100 mg/dL 70-[address] [facility] 6720 (BEAKER) (test code = [place] 1538) [address] CALCIUM, [id number] 06:47:00 Test Item Value Reference Range Interpretation Comments CALCIUM IONIZED (BEAKER) (test 1.00 mmol/L 1.12-1.27 L code = 698) PH, BLOOD (BEAKER) (test code = 7.49 1810) CBC W/PLT COUNT & AUTO [id number] 05:40:00 Test Item Value Reference Range Interpretation Comments WHITE BLOOD CELL COUNT (BEAKER) 7.3 K/ L 3.5-10.5 (test code = 775) RED BLOOD CELL COUNT (BEAKER) 3.04 M/ L 3.93-5.22 L (test code = 761) HEMOGLOBIN (BEAKER) (test code = 8.6 GM/DL 11.2-15.7 L 410) HEMATOCRIT (BEAKER) (test code = 27.4 % 34.1-44.9 L 411) MEAN CORPUSCULAR VOLUME (BEAKER) 90.1 fL 79.4-94.8 (test code = 753) MEAN CORPUSCULAR HEMOGLOBIN 28.3 pg 25.6-32.2 (BEAKER) (test code = 751) MEAN CORPUSCULAR HEMOGLOBIN CONC 31.4 GM/DL 32.2-35.5 L (BEAKER) (test code = 752) RED CELL DISTRIBUTION WIDTH 17.5 % 11.7-14.4 H (BEAKER) (test code = 412) PLATELET COUNT (BEAKER) (test 203 K/CU MM 150-450 code = 756) MEAN PLATELET VOLUME (BEAKER) 9.7 fL 9.4-12.3 (test code = 754) NUCLEATED RED BLOOD CELLS 0 /100 WBC 0-0 (BEAKER) (test code = 413) NEUTROPHILS RELATIVE PERCENT 75 % (BEAKER) (test code = 429) LYMPHOCYTES RELATIVE PERCENT 13 % (BEAKER) (test code = 430) MONOCYTES RELATIVE PERCENT 8 % (BEAKER) (test code = 431) EOSINOPHILS RELATIVE PERCENT 3 % (BEAKER) (test code = 432) BASOPHILS RELATIVE PERCENT 1 % (BEAKER) (test code = 437) NEUTROPHILS ABSOLUTE COUNT 5.51 K/ L 1.56-6.13 (BEAKER) (test code = 670) LYMPHOCYTES ABSOLUTE COUNT 0.92 K/ L 1.18-3.74 L (BEAKER) (test code = 414) MONOCYTES ABSOLUTE COUNT (BEAKER) 0.59 K/ L 0.24-0.36 H (test code = 415) EOSINOPHILS ABSOLUTE COUNT 0.19 K/ L 0.04-0.36 (BEAKER) (test code = 416) BASOPHILS ABSOLUTE COUNT (BEAKER) 0.07 K/ L 0.01-0.08 (test code = 417) IMMATURE GRANULOCYTES-RELATIVE 0 % 0-1 PERCENT (ELMER) (test code = 2801) TISSUE [id number] 15:05:00Surgical Pathology Report Case: [id number] Authorizing Provider: Linh Thomas MD Collected: 04/16/2018 1252 Ordering Location: [facility] Received: 04/16/2018 1320 SERVICES Pathologist: Alejandro Mendes MD Specimen: Gallbladder GALLBLADDER, CHOLECYSTECTOMY: - ACUTE AND CHRONIC CHOLECYSTITIS,WITH XANTHOGRANULOMATOUS FEATURES (SEE COMMENT) - CHOLELITHIASIS Signing Pathologist Direct Phone Line: [phone] signed by Alejandro Mendes MD on 04/19/2018 at 3:05 PMSections show acute and chronic inflammation, and extensive xanthogranulomatous features, including abundant histiocytes, multinucleated giant cells and cholesterol clefts, admixed with bile, neutrophils, lymphocytes and plasma cells. Surrounding liver parenchyma show reactive changes and fibrosis. GMS, PAS and AFB stains are negative for fungal elements and acid-fast bacilli. Von Kossa stains is predominantly negative. These findings are supportive of the above diagnosis. 42971, 72957 x 3, 34367Awsuszxn of gallbladder without cholecystitis without obstructionGallbladder The specimen is received in formalin-filled container and labeled with the patient's information and labeled "gallbladder" consists of a ragged distorted open segment of gallbladder measuring 5.5 x 2 cm, gallbladder wall thickness up to 0.8 cm. Orientation is not available. The margin is not grossly identifiable. Mucosa is luis-red, ragged. No distinct masses are identified. Powerhouse Attendant sections of the gallbladder wall submitted A1 and A2. Cross sections of the gallbladder wall show areas of necrosis. In the container are multiple fragments of yellow faceted stones measuring up to 0.2 cm. Powerhouse Attendant sections are submitted A1 through A4. CG/pl PerformedThe interpretation of this case included the use of immunohistochemistry or special stains. Please see comment for special stain results.POCT-GLUCOSE METER 2018-04-19 12:19:00 Test Item Value Reference Range Interpretation Comments POC-GLUCOSE METER 85 mg/dL 70-[address] [facility] 6720 (ELMER) (test code = [place] [address] 1538) POCT-GLUCOSE [id number] 07:39:00 Test Item Value Reference Range Interpretation Comments POC-GLUCOSE METER 102 mg/dL 70-[address] [facility] 6720 (BEAKER) (test code = [place] 1538) [address] BASIC METABOLIC [id number] 07:27:00 Test Item Value Reference Range Interpretation Comments SODIUM (BEAKER) 141 meq/L 136-145 (test code = 381) POTASSIUM (BEAKER) 4.1 meq/L 3.5-5.1 (test code = 379) CHLORIDE (BEAKER) 110 meq/L 98-107 H (test code = 382) CO2 (BEAKER) (test 25 meq/L 22-29 code = 355) BLOOD UREA NITROGEN 9 mg/dL 7-21 (BEAKER) (test code = 354) CREATININE (BEAKER) 0.98 mg/dL 0.57-1.25 (test code = 358) GLUCOSE RANDOM 90 mg/dL 70-105 (BEAKER) (test code = 652) CALCIUM (BEAKER) 7.9 mg/dL 8.4-10.2 L (test code = 697) EGFR (BEAKER) (test 60 mL/min/1.73 ESTIMA MILAN GFR IS code = 1092) sq m NOT ACCURATE CREATININE CLEARANCE IN PREDICTING GLOMERULAR FILTRATION RATE . ESTIMATED GFR I S NOT APPLICABLE FOR DIALYSIS PATIEN TS. [id number] 07:16:00 Test Item Value Reference Range Interpretation Comments PHOSPHORUS (BEAKER) (test code = 3.2 mg/dL 2.3-4.7 604) [id number] 07:16:00 Test Item Value Reference Range Interpretation Comments MAGNESIUM (BEAKER) (test code = 1.7 mg/dL 1.6-2.6 627) CALCIUM, [id number] 06:53:00 Test Item Value Reference Range Interpretation Comments CALCIUM IONIZED (BEAKER) (test 1.00 mmol/L 1.12-1.27 L code = 698) PH, BLOOD (BEAKER) (test code = 7.40 1810) CBC W/PLT COUNT & AUTO [id number] 06:27:00 Test Item Value Reference Range Interpretation Comments WHITE BLOOD CELL COUNT (BEAKER) 6.8 K/ L 3.5-10.5 (test code = 775) RED BLOOD CELL COUNT (BEAKER) 3.33 M/ L 3.93-5.22 L (test code = 761) HEMOGLOBIN (BEAKER) (test code = 9.4 GM/DL 11.2-15.7 L 410) HEMATOCRIT (BEAKER) (test code = 30.3 % 34.1-44.9 L 411) MEAN CORPUSCULAR VOLUME (BEAKER) 91.0 fL 79.4-94.8 (test code = 753) MEAN CORPUSCULAR HEMOGLOBIN 28.2 pg 25.6-32.2 (BEAKER) (test code = 751) MEAN CORPUSCULAR HEMOGLOBIN CONC 31.0 GM/DL 32.2-35.5 L (BEAKER) (test code = 752) RED CELL DISTRIBUTION WIDTH 17.1 % 11.7-14.4 H (BEAKER) (test code = 412) PLATELET COUNT (BEAKER) (test 201 K/CU MM 150-450 code = 756) MEAN PLATELET VOLUME (BEAKER) 10.1 fL 9.4-12.3 (test code = 754) NUCLEATED RED BLOOD CELLS 0 /100 WBC 0-0 (BEAKER) (test code = 413) NEUTROPHILS RELATIVE PERCENT 67 % (BEAKER) (test code = 429) LYMPHOCYTES RELATIVE PERCENT 18 % (BEAKER) (test code = 430) MONOCYTES RELATIVE PERCENT 11 % (BEAKER) (test code = 431) EOSINOPHILS RELATIVE PERCENT 3 % (BEAKER) (test code = 432) BASOPHILS RELATIVE PERCENT 1 % (BEAKER) (test code = 437) NEUTROPHILS ABSOLUTE COUNT 4.55 K/ L 1.56-6.13 (BEAKER) (test code = 670) LYMPHOCYTES ABSOLUTE COUNT 1.24 K/ L 1.18-3.74 (BEAKER) (test code = 414) MONOCYTES ABSOLUTE COUNT (BEAKER) 0.72 K/ L 0.24-0.36 H (test code = 415) EOSINOPHILS ABSOLUTE COUNT 0.18 K/ L 0.04-0.36 (BEAKER) (test code = 416) BASOPHILS ABSOLUTE COUNT (BEAKER) 0.05 K/ L 0.01-0.08 (test code = 417) IMMATURE GRANULOCYTES-RELATIVE 0 % 0-1 PERCENT (BEAKER) (test code = 2801) POCT-GLUCOSE [id number] 23:35:00 Test Item Value Reference Range Interpretation Comments POC-GLUCOSE METER 148 mg/dL 70-[address] [facility] 6720 (BEAKER) (test code = [address] [place] 1538) [id number] POCT-GLUCOSE [id number] 11:40:00 Test Item Value Reference Range Interpretation Comments POC-GLUCOSE METER 121 mg/dL 70-[address] [facility] 6720 (BEAKER) (test code = AST[address] [place] 1538) [id number] POCT-GLUCOSE [id number] 08:25:00 Test Item Value Reference Range Interpretation Comments POC-GLUCOSE METER 114 mg/dL 70-[address] [facility] 6720 (BEAKER) (test code = ASTON Howard [facility] 1538) [id number] COMPREHENSIVE METABOLIC [id number] 06:37:00 Test Item Value Reference Range Interpretation Comments TOTAL PROTEIN 5.7 gm/dL 6.0-8.3 L (BEAKER) (test code = 770) ALBUMIN (BEAKER) 2.6 g/dL 3.5-5.0 L (test code = 1145) ALKALINE PHOSPHATASE 147 U/L 40-150 (BEAKER) (test code = 346) BILIRUBIN TOTAL 1.1 mg/dL 0.2-1.2 (BEAKER) (test code = 377) SODIUM (BEAKER) (test 138 meq/L 136-145 code = 381) POTASSIUM (BEAKER) 4.2 meq/L 3.5-5.1 (test code = 379) CHLORIDE (BEAKER) 109 meq/L 98-107 H (test code = 382) CO2 (BEAKER) (test 23 meq/L 22-29 code = 355) BLOOD UREA NITROGEN 11 mg/dL 7-21 (BEAKER) (test code = 354) CREATININE (BEAKER) 0.95 mg/dL 0.57-1.25 (test code = 358) GLUCOSE RANDOM 100 mg/dL 70-105 (BEAKER) (test code = 652) CALCIUM (BEAKER) 7.7 mg/dL 8.4-10.2 L (test code = 697) AST (SGOT) (BEAKER) 30 U/L 5-34 (test code = 353) ALT (SGPT) (BEAKER) 18 U/L 6-55 (test code = 347) EGFR (BEAKER) (test 62 mL/min/1.73 ESTIMA MILAN GFR IS code = 1092) sq m NOT ACCURATE CREATININE CLEARANCE IN PREDICTING GLOMERULAR FILTRATION RATE . ESTIMATED GFR I S NOT APPLICABLE FOR DIALYSIS PATIEN TS. CALCIUM, [id number] 06:36:00 Test Item Value Reference Range Interpretation Comments CALCIUM IONIZED (BEAKER) (test 0.93 mmol/L 1.12-1.27 L code = 698) PH, BLOOD (BEAKER) (test code = 7.46 1810) [id number] 06:24:00 Test Item Value Reference Range Interpretation Comments PHOSPHORUS (BEAKER) (test code = 3.0 mg/dL 2.3-4.7 604) [id number] 06:24:00 Test Item Value Reference Range Interpretation Comments MAGNESIUM (BEAKER) (test code = 1.3 mg/dL 1.6-2.6 L 627) CBC W/PLT COUNT & AUTO [id number] 06:22:00 Test Item Value Reference Range Interpretation Comments WHITE BLOOD CELL COUNT (BEAKER) 12.1 K/ L 3.5-10.5 H (test code = 775) RED BLOOD CELL COUNT (BEAKER) 3.52 M/ L 3.93-5.22 L (test code = 761) HEMOGLOBIN (BEAKER) (test code = 9.9 GM/DL 11.2-15.7 L 410) HEMATOCRIT (BEAKER) (test code = 31.5 % 34.1-44.9 L 411) MEAN CORPUSCULAR VOLUME (BEAKER) 89.5 fL 79.4-94.8 (test code = 753) MEAN CORPUSCULAR HEMOGLOBIN 28.1 pg 25.6-32.2 (BEAKER) (test code = 751) MEAN CORPUSCULAR HEMOGLOBIN CONC 31.4 GM/DL 32.2-35.5 L (BEAKER) (test code = 752) RED CELL DISTRIBUTION WIDTH 17.2 % 11.7-14.4 H (BEAKER) (test code = 412) PLATELET COUNT (BEAKER) (test 246 K/CU MM 150-450 code = 756) MEAN PLATELET VOLUME (BEAKER) 9.6 fL 9.4-12.3 (test code = 754) NUCLEATED RED BLOOD CELLS 0 /100 WBC 0-0 (BEAKER) (test code = 413) NEUTROPHILS RELATIVE PERCENT 77 % (BEAKER) (test code = 429) LYMPHOCYTES RELATIVE PERCENT 13 % (BEAKER) (test code = 430) MONOCYTES RELATIVE PERCENT 8 % (BEAKER) (test code = 431) EOSINOPHILS RELATIVE PERCENT 1 % (BEAKER) (test code = 432) BASOPHILS RELATIVE PERCENT 1 % (BEAKER) (test code = 437) NEUTROPHILS ABSOLUTE COUNT 9.33 K/ L 1.56-6.13 H (BEAKER) (test code = 670) LYMPHOCYTES ABSOLUTE COUNT 1.62 K/ L 1.18-3.74 (BEAKER) (test code = 414) MONOCYTES ABSOLUTE COUNT (BEAKER) 0.91 K/ L 0.24-0.36 H (test code = 415) EOSINOPHILS ABSOLUTE COUNT 0.12 K/ L 0.04-0.36 (BEAKER) (test code = 416) BASOPHILS ABSOLUTE COUNT (BEAKER) 0.07 K/ L 0.01-0.08 (test code = 417) IMMATURE GRANULOCYTES-RELATIVE 1 % 0-1 PERCENT (BEAKER) (test code = 2801) POCT-GLUCOSE [id number] 11:52:00 Test Item Value Reference Range Interpretation Comments POC-GLUCOSE METER 122 mg/dL 70-[address] [facility] 6720 (BEAKER) (test code = [place] 1538) [id number] COMPREHENSIVE METABOLIC [id number] 10:35:00 Test Item Value Reference Range Interpretation Comments TOTAL PROTEIN 5.9 gm/dL 6.0-8.3 L (BEAKER) (test code = 770) ALBUMIN (BEAKER) 2.6 g/dL 3.5-5.0 L (test code = 1145) ALKALINE PHOSPHATASE 169 U/L 40-150 H (BEAKER) (test code = 346) BILIRUBIN TOTAL 1.2 mg/dL 0.2-1.2 (BEAKER) (test code = 377) SODIUM (BEAKER) (test 140 meq/L 136-145 code = 381) POTASSIUM (BEAKER) 4.0 meq/L 3.5-5.1 (test code = 379) CHLORIDE (BEAKER) 110 meq/L 98-107 H (test code = 382) CO2 (BEAKER) (test 26 meq/L 22-29 code = 355) BLOOD UREA NITROGEN 12 mg/dL 7-21 (BEAKER) (test code = 354) CREATININE (BEAKER) 0.92 mg/dL 0.57-1.25 (test code = 358) GLUCOSE RANDOM 110 mg/dL 70-105 H (BEAKER) (test code = 652) CALCIUM (BEAKER) 7.4 mg/dL 8.4-10.2 L (test code = 697) AST (SGOT) (BEAKER) 37 U/L 5-34 H (test code = 353) ALT (SGPT) (BEAKER) 18 U/L 6-55 (test code = 347) EGFR (BEAKER) (test 64 mL/min/1.73 ESTIMA MILAN GFR IS code = 1092) sq m NOT ACCURATE CREATININE CLEARANCE IN PREDICTING GLOMERULAR FILTRATION RATE . ESTIMATED GFR I S NOT APPLICABLE FOR DIALYSIS PATIEN TS. [id number] 10:21:00 Test Item Value Reference Range Interpretation Comments PHOSPHORUS (BEAKER) (test code = 2.8 mg/dL 2.3-4.7 604) [id number] 10:21:00 Test Item Value Reference Range Interpretation Comments MAGNESIUM (BEAKER) (test code = 1.5 mg/dL 1.6-2.6 L 627) CBC (HEMOGRAM ONLY)[id number] 10:07:00 Test Item Value Reference Range Interpretation Comments WHITE BLOOD CELL COUNT (BEAKER) 16.3 K/ L 3.5-10.5 H (test code = 775) RED BLOOD CELL COUNT (BEAKER) 3.75 M/ L 3.93-5.22 L (test code = 761) HEMOGLOBIN (BEAKER) (test code = 10.6 GM/DL 11.2-15.7 L 410) HEMATOCRIT (BEAKER) (test code = 33.5 % 34.1-44.9 L 411) MEAN CORPUSCULAR VOLUME (BEAKER) 89.3 fL 79.4-94.8 (test code = 753) MEAN CORPUSCULAR HEMOGLOBIN 28.3 pg 25.6-32.2 (BEAKER) (test code = 751) MEAN CORPUSCULAR HEMOGLOBIN CONC 31.6 GM/DL 32.2-35.5 L (BEAKER) (test code = 752) RED CELL DISTRIBUTION WIDTH 17.0 % 11.7-14.4 H (BEAKER) (test code = 412) PLATELET COUNT (BEAKER) (test 300 K/CU MM 150-450 code = 756) MEAN PLATELET VOLUME (BEAKER) 9.3 fL 9.4-12.3 L (test code = 754) NUCLEATED RED BLOOD CELLS 0 /100 WBC 0-0 (BEAKER) (test code = 413) CALCIUM, [id number] 06:57:00 Test Item Value Reference Range Interpretation Comments CALCIUM IONIZED (BEAKER) (test 0.89 mmol/L 1.12-1.27 L code = 698) PH, BLOOD (BEAKER) (test code = 7.41 1810) CBC W/PLT COUNT & AUTO [id number] 00:49:00 Test Item Value Reference Range Interpretation Comments WHITE BLOOD CELL COUNT (BEAKER) 11.3 K/ L 3.5-10.5 H (test code = 775) RED BLOOD CELL COUNT (BEAKER) 3.26 M/ L 3.93-5.22 L (test code = 761) HEMOGLOBIN (BEAKER) (test code = 9.4 GM/DL 11.2-15.7 L 410) HEMATOCRIT (BEAKER) (test code = 29.1 % 34.1-44.9 L 411) MEAN CORPUSCULAR VOLUME (BEAKER) 89.3 fL 79.4-94.8 (test code = 753) MEAN CORPUSCULAR HEMOGLOBIN 28.8 pg 25.6-32.2 (BEAKER) (test code = 751) MEAN CORPUSCULAR HEMOGLOBIN CONC 32.3 GM/DL 32.2-35.5 (BEAKER) (test code = 752) RED CELL DISTRIBUTION WIDTH 16.7 % 11.7-14.4 H (BEAKER) (test code = 412) PLATELET COUNT (BEAKER) (test 214 K/CU MM 150-450 code = 756) MEAN PLATELET VOLUME (BEAKER) 9.8 fL 9.4-12.3 (test code = 754) NUCLEATED RED BLOOD CELLS 0 /100 WBC 0-0 (BEAKER) (test code = 413) NEUTROPHILS RELATIVE PERCENT 82 % (BEAKER) (test code = 429) LYMPHOCYTES RELATIVE PERCENT 10 % (BEAKER) (test code = 430) MONOCYTES RELATIVE PERCENT 7 % (BEAKER) (test code = 431) EOSINOPHILS RELATIVE PERCENT 0 % (BEAKER) (test code = 432) BASOPHILS RELATIVE PERCENT 0 % (BEAKER) (test code = 437) NEUTROPHILS ABSOLUTE COUNT 9.30 K/ L 1.56-6.13 H (BEAKER) (test code = 670) LYMPHOCYTES ABSOLUTE COUNT 1.15 K/ L 1.18-3.74 L (BEAKER) (test code = 414) MONOCYTES ABSOLUTE COUNT (BEAKER) 0.76 K/ L 0.24-0.36 H (test code = 415) EOSINOPHILS ABSOLUTE COUNT 0.01 K/ L 0.04-0.36 L (BEAKER) (test code = 416) BASOPHILS ABSOLUTE COUNT (BEAKER) 0.04 K/ L 0.01-0.08 (test code = 417) IMMATURE GRANULOCYTES-RELATIVE 1 % 0-1 PERCENT (BEAKER) (test code = 2801) [id number] 00:40:00 Test Item Value Reference Range Interpretation Comments MAGNESIUM (BEAKER) (test code = 1.0 mg/dL 1.6-2.6 LL 627) [id number] 00:23:00 Test Item Value Reference Range Interpretation Comments PHOSPHORUS (BEAKER) (test code = 3.2 mg/dL 2.3-4.7 604) [id number] 00:23:00 Test Item Value Reference Range Interpretation Comments AMYLASE (BEAKER) (test code = 349) 23 U/L 25-125 L CBC W/PLT COUNT & AUTO [id number] 15:50:00 Test Item Value Reference Range Interpretation Comments WHITE BLOOD CELL COUNT (BEAKER) 14.2 K/ L 3.5-10.5 H (test code = 775) RED BLOOD CELL COUNT (BEAKER) 4.06 M/ L 3.93-5.22 (test code = 761) HEMOGLOBIN (BEAKER) (test code = 11.4 GM/DL 11.2-15.7 410) HEMATOCRIT (BEAKER) (test code = 36.2 % 34.1-44.9 411) MEAN CORPUSCULAR VOLUME (BEAKER) 89.2 fL 79.4-94.8 (test code = 753) MEAN CORPUSCULAR HEMOGLOBIN 28.1 pg 25.6-32.2 (BEAKER) (test code = 751) MEAN CORPUSCULAR HEMOGLOBIN CONC 31.5 GM/DL 32.2-35.5 L (BEAKER) (test code = 752) RED CELL DISTRIBUTION WIDTH 16.7 % 11.7-14.4 H (BEAKER) (test code = 412) PLATELET COUNT (BEAKER) (test 249 K/CU MM 150-450 code = 756) MEAN PLATELET VOLUME (BEAKER) 9.7 fL 9.4-12.3 (test code = 754) NUCLEATED RED BLOOD CELLS 0 /100 WBC 0-0 (BEAKER) (test code = 413) NEUTROPHILS RELATIVE PERCENT 93 % (BEAKER) (test code = 429) LYMPHOCYTES RELATIVE PERCENT 5 % (BEAKER) (test code = 430) MONOCYTES RELATIVE PERCENT 1 % (BEAKER) (test code = 431) EOSINOPHILS RELATIVE PERCENT 0 % (BEAKER) (test code = 432) BASOPHILS RELATIVE PERCENT 0 % (BEAKER) (test code = 437) NEUTROPHILS ABSOLUTE COUNT 13.26 K/ L 1.56-6.13 H (BEAKER) (test code = 670) LYMPHOCYTES ABSOLUTE COUNT 0.65 K/ L 1.18-3.74 L (BEAKER) (test code = 414) MONOCYTES ABSOLUTE COUNT (BEAKER) 0.20 K/ L 0.24-0.36 L (test code = 415) EOSINOPHILS ABSOLUTE COUNT 0.01 K/ L 0.04-0.36 L (BEAKER) (test code = 416) BASOPHILS ABSOLUTE COUNT (BEAKER) 0.05 K/ L 0.01-0.08 (test code = 417) IMMATURE GRANULOCYTES-RELATIVE 0 % 0-1 PERCENT (BEAKER) (test code = 2801) FL, RESET MERCHANDISER IN OR/30 MINUTE [id number] 13:52:00Reason for exam:- >Intraop CholangiogramFINAL REPORT Fluoroscopy 12 views intraoperative 04/16/2018 1:51 PM CLINICAL HISTORY: Instrument localization COMPARISON: None available IMPRESSION: Please correlate imaging report findings with the procedure note prepared by Dr. Thomas, as an intra-procedure imaging consultation was not requested. Reported fluoroscopy time: 74.8 seconds. Signed: Eric Felicianoort Verified Date/Time: 04/16/2018 13:52:50 Reading Location: [facility] Radiology Reading Room HCG, QUANTITATIVE, [id number] 09:10:00 Test Item Value Reference Range Interpretation Comments GONADOTROPIN, CHORIONIC (HCG) QUANT < mIU/mL 0-10 (BEAKER) (test code = 649) Non- Females: <10 mIU/mL Females: Gestation Age Reference Range(mIU/mL) 0.2-1 Week 5-50 1-2 Weeks 50-500 2-3 Weeks 100-5,000 3-4 Weeks 500-10,000 4-5 Weeks 1,000-50,000 5-6 Weeks 10,000-100,000 6-8 Weeks 15,000- 200,000 2-3 Months 10,000-100,000POCT-GLUCOSE [id number] 07:43:00 Test Item Value Reference Range Interpretation Comments POC-GLUCOSE METER 82 mg/dL 70-[address] [facility] 6720 (BANNER) (test code = ASTON Howard [facility] [address]38) CALCIUM, [id number] 07:06:00 Test Item Value Reference Range Interpretation Comments CALCIUM IONIZED (BEAKER) (test 0.95 mmol/L 1.12-1.27 L code = 698) PH, BLOOD (BEAKER) (test code = 7.46 1810) COMPREHENSIVE METABOLIC [id number] 06:40:00 Test Item Value Reference Range Interpretation Comments TOTAL PROTEIN 5.5 gm/dL 6.0-8.3 L (BEAKER) (test code = 770) ALBUMIN (BEAKER) 2.4 g/dL 3.5-5.0 L (test code = 1145) ALKALINE PHOSPHATASE 189 U/L 40-150 H (BEAKER) (test code = 346) BILIRUBIN TOTAL 1.1 mg/dL 0.2-1.2 (BEAKER) (test code = 377) SODIUM (BEAKER) (test 144 meq/L 136-145 code = 381) POTASSIUM (BEAKER) 3.8 meq/L 3.5-5.1 (test code = 379) CHLORIDE (BEAKER) 112 meq/L 98-107 H (test code = 382) CO2 (BEAKER) (test 27 meq/L 22-29 code = 355) BLOOD UREA NITROGEN 13 mg/dL 7-21 (BEAKER) (test code = 354) CREATININE (BEAKER) 0.83 mg/dL 0.57-1.25 (test code = 358) GLUCOSE RANDOM 87 mg/dL 70-105 (BEAKER) (test code = 652) CALCIUM (BEAKER) 7.3 mg/dL 8.4-10.2 L (test code = 697) AST (SGOT) (BEAKER) 18 U/L 5-34 (test code = 353) ALT (SGPT) (BEAKER) 16 U/L 6-55 (test code = 347) EGFR (BEAKER) (test 72 mL/min/1.73 ESTIMA MILAN GFR IS code = 1092) sq m NOT ACCURATE CREATININE CLEARANCE IN PREDICTING GLOMERULAR FILTRATION RATE . ESTIMATED GFR I S NOT APPLICABLE FOR DIALYSIS PATIEN TS. [id number] 06:38:00 Test Item Value Reference Range Interpretation Comments PHOSPHORUS (BEAKER) (test code = 3.2 mg/dL 2.3-4.7 604) [id number] 06:38:00 Test Item Value Reference Range Interpretation Comments MAGNESIUM (BEAKER) (test code = 1.5 mg/dL 1.6-2.6 L 627) HEPATIC FUNCTION [id number] 06:38:00 Test Item Value Reference Range Interpretation Comments TOTAL PROTEIN (BEAKER) (test code = 5.5 gm/dL 6.0-8.3 L 770) ALBUMIN (BEAKER) (test code = 1145) 2.4 g/dL 3.5-5.0 L BILIRUBIN TOTAL (BEAKER) (test code 1.1 mg/dL 0.2-1.2 = 377) BILIRUBIN DIRECT (BEAKER) (test 0.8 mg/dL 0.1-0.5 H code = 706) ALKALINE PHOSPHATASE (BEAKER) (test 189 U/L 40-150 H code = 346) AST (SGOT) (BEAKER) (test code = 18 U/L 5-34 353) ALT (SGPT) (BEAKER) (test code = 16 U/L 6-55 347) [id number] 06:38:00 Test Item Value Reference Range Interpretation Comments AMYLASE (BEAKER) (test code = 349) 34 U/L 25-125 [id number] 06:38:00 Test Item Value Reference Range Interpretation Comments LIPASE (BEAKER) (test code = 749) 28 U/L 8-78 CBC W/PLT COUNT & AUTO [id number] 06:22:00 Test Item Value Reference Range Interpretation Comments WHITE BLOOD CELL COUNT (BEAKER) 5.6 K/ L 3.5-10.5 (test code = 775) RED BLOOD CELL COUNT (BEAKER) 3.21 M/ L 3.93-5.22 L (test code = 761) HEMOGLOBIN (BEAKER) (test code = 8.8 GM/DL 11.2-15.7 L 410) HEMATOCRIT (BEAKER) (test code = 28.4 % 34.1-44.9 L 411) MEAN CORPUSCULAR VOLUME (BEAKER) 88.5 fL 79.4-94.8 (test code = 753) MEAN CORPUSCULAR HEMOGLOBIN 27.4 pg 25.6-32.2 (BEAKER) (test code = 751) MEAN CORPUSCULAR HEMOGLOBIN CONC 31.0 GM/DL 32.2-35.5 L (BEAKER) (test code = 752) RED CELL DISTRIBUTION WIDTH 17.2 % 11.7-14.4 H (BEAKER) (test code = 412) PLATELET COUNT (BEAKER) (test 237 K/CU MM 150-450 code = 756) MEAN PLATELET VOLUME (BEAKER) 10.0 fL 9.4-12.3 (test code = 754) NUCLEATED RED BLOOD CELLS 0 /100 WBC 0-0 (BEAKER) (test code = 413) NEUTROPHILS RELATIVE PERCENT 59 % (BEAKER) (test code = 429) LYMPHOCYTES RELATIVE PERCENT 26 % (BEAKER) (test code = 430) MONOCYTES RELATIVE PERCENT 11 % (BEAKER) (test code = 431) EOSINOPHILS RELATIVE PERCENT 3 % (BEAKER) (test code = 432) BASOPHILS RELATIVE PERCENT 1 % (BEAKER) (test code = 437) NEUTROPHILS ABSOLUTE COUNT 3.33 K/ L 1.56-6.13 (BEAKER) (test code = 670) LYMPHOCYTES ABSOLUTE COUNT 1.47 K/ L 1.18-3.74 (BEAKER) (test code = 414) MONOCYTES ABSOLUTE COUNT (BEAKER) 0.59 K/ L 0.24-0.36 H (test code = 415) EOSINOPHILS ABSOLUTE COUNT 0.15 K/ L 0.04-0.36 (BEAKER) (test code = 416) BASOPHILS ABSOLUTE COUNT (BEAKER) 0.05 K/ L 0.01-0.08 (test code = 417) IMMATURE GRANULOCYTES-RELATIVE 0 % 0-1 PERCENT (BEAKER) (test code = 2801) CT, [id number] 16:48:00FINAL REPORT CT of the abdomen and pelvis, without contrast Clinical History: Evaluate for stone at CBD/cystic duct Technique: CT of the abdomen and pelvis is performed without intravenous contrast administration. This exam was performed according to our departmental dose optimization program which includes automated exposure control, adjustment of the mA and/or kV according to patient's size and/or use of iterative reconstructive technique. Comparison Film: None Discussion: Exam is mildly degraded by patient's respiratory motion. There is mild scarring or atelectasis at the lung bases. There is mild pneumobilia, and biliary ductal dilatation. A CBD stent is present. No definite stone is identified in the bile ducts, note evaluation is limited by presence of stent, as well asmotion artifact. No radiopaque stone is identified in the gallbladder. The spleen, pancreas have a unremarkable unenhanced appearance. There is a 1.3 cm left adrenal nodule which is indeterminate. Kidneys demonstrate no hydronephrosis, or radiopaque stone. There is a 3 cm hypodense lesion in the interpolar left kidney, presumably a cyst. No evidence of bowel obstruction, or abnormal bowel wall thickening. Normal appendix. In the pelvis, the bladder, uterus and adnexa are unremarkable. There is no ascites, free air, or lymphadenopathy. Osseous structures demonstrate degenerative changes. Impression:Exam is limited by patient's respiratory motion. CBD stent. There is mild biliary ductal dilatation,and pneumobilia. No radiopaque stone is identified allowing for exam limitations. Indeterminate 1.3 cm left adrenal nodule. Signed: Kristyn Parker Verified Date/Time: 04/15/2018 16:48:33 Reading Location: [address] Consult Reading Room C METABOLIC [id number] 07:45:00 Test Item Value Reference Range Interpretation Comments SODIUM (BEAKER) 146 meq/L 136-145 H (test code = 381) POTASSIUM (BEAKER) 3.8 meq/L 3.5-5.1 (test code = 379) CHLORIDE (BEAKER) 113 meq/L 98-107 H (test code = 382) CO2 (BEAKER) (test 27 meq/L 22-29 code = 355) BLOOD UREA NITROGEN 18 mg/dL 7-21 (BEAKER) (test code = 354) CREATININE (BEAKER) 0.89 mg/dL 0.57-1.25 (test code = 358) GLUCOSE RANDOM 89 mg/dL 70-105 (BEAKER) (test code = 652) CALCIUM (BEAKER) 7.4 mg/dL 8.4-10.2 L (test code = 697) EGFR (BEAKER) (test 67 mL/min/1.73 ESTIMA MILAN GFR IS code = 1092) sq m NOT ACCURATE CREATININE CLEARANCE IN PREDICTING GLOMERULAR FILTRATION RATE . ESTIMATED GFR I S NOT APPLICABLE FOR DIALYSIS PATIEN TS. [id number] 07:31:00 Test Item Value Reference Range Interpretation Comments PHOSPHORUS (BEAKER) (test code = 3.0 mg/dL 2.3-4.7 604) [id number] 07:31:00 Test Item Value Reference Range Interpretation Comments MAGNESIUM (BEAKER) (test code = 1.2 mg/dL 1.6-2.6 L 627) HEPATIC FUNCTION [id number] 07:31:00 Test Item Value Reference Range Interpretation Comments TOTAL PROTEIN (BEAKER) (test code = 5.4 gm/dL 6.0-8.3 L 770) ALBUMIN (BEAKER) (test code = 1145) 2.4 g/dL 3.5-5.0 L BILIRUBIN TOTAL (BEAKER) (test code 1.1 mg/dL 0.2-1.2 = 377) BILIRUBIN DIRECT (BEAKER) (test 0.8 mg/dL 0.1-0.5 H code = 706) ALKALINE PHOSPHATASE (BEAKER) (test 203 U/L 40-150 H code = 346) AST (SGOT) (BEAKER) (test code = 17 U/L 5-34 353) ALT (SGPT) (BEAKER) (test code = 17 U/L 6-55 347) [id number] 07:31:00 Test Item Value Reference Range Interpretation Comments AMYLASE (BEAKER) (test code = 349) 34 U/L 25-125 [id number] 07:31:00 Test Item Value Reference Range Interpretation Comments LIPASE (BEAKER) (test code = 749) 32 U/L 8-78 CALCIUM, [id number] 07:21:00 Test Item Value Reference Range Interpretation Comments CALCIUM IONIZED (BEAKER) (test 0.95 mmol/L 1.12-1.27 L code = 698) PH, BLOOD (BEAKER) (test code = 7.44 1810) PROTHROMBIN [id number] 07:13:00 Test Item Value Reference Range Interpretation Comments PROTIME (BEAKER) (test code = 15.0 seconds 11.7-14.7 H 759) INR (BEAKER) (test code = 370) 1.2 <=5.9 RECOMMENDED COUMADIN/WARFARIN INR THERAPY RANGESSTANDARD DOSE: 2.0 - 3.0 Includes: PROPHYLAXIS for venous thrombosis, systemic embolization; TREATMENT for venous thrombosis and/or pulmonary embolus.HIGH RISK: Target INR is 2.5-3.5 for patients with mechanical heart valves.[id number] 07:13:00 Test Item Value Reference Range Interpretation Comments PARTIAL THROMBOPLASTIN TIME 27.7 seconds 22.5-36.0 (BEAKER) (test code = 760) CBC W/PLT COUNT & AUTO [id number] 07:04:00 Test Item Value Reference Range Interpretation Comments WHITE BLOOD CELL COUNT (BEAKER) 6.4 K/ L 3.5-10.5 (test code = 775) RED BLOOD CELL COUNT (BEAKER) 3.02 M/ L 3.93-5.22 L (test code = 761) HEMOGLOBIN (BEAKER) (test code = 8.4 GM/DL 11.2-15.7 L 410) HEMATOCRIT (BEAKER) (test code = 26.7 % 34.1-44.9 L 411) MEAN CORPUSCULAR VOLUME (BEAKER) 88.4 fL 79.4-94.8 (test code = 753) MEAN CORPUSCULAR HEMOGLOBIN 27.8 pg 25.6-32.2 (BEAKER) (test code = 751) MEAN CORPUSCULAR HEMOGLOBIN CONC 31.5 GM/DL 32.2-35.5 L (BEAKER) (test code = 752) RED CELL DISTRIBUTION WIDTH 16.9 % 11.7-14.4 H (BEAKER) (test code = 412) PLATELET COUNT (BEAKER) (test 215 K/CU MM 150-450 code = 756) MEAN PLATELET VOLUME (BEAKER) 9.5 fL 9.4-12.3 (test code = 754) NUCLEATED RED BLOOD CELLS 0 /100 WBC 0-0 (BEAKER) (test code = 413) NEUTROPHILS RELATIVE PERCENT 65 % (BEAKER) (test code = 429) LYMPHOCYTES RELATIVE PERCENT 23 % (BEAKER) (test code = 430) MONOCYTES RELATIVE PERCENT 9 % (BEAKER) (test code = 431) EOSINOPHILS RELATIVE PERCENT 2 % (BEAKER) (test code = 432) BASOPHILS RELATIVE PERCENT 1 % (BEAKER) (test code = 437) NEUTROPHILS ABSOLUTE COUNT 4.15 K/ L 1.56-6.13 (BEAKER) (test code = 670) LYMPHOCYTES ABSOLUTE COUNT 1.48 K/ L 1.18-3.74 (BEAKER) (test code = 414) MONOCYTES ABSOLUTE COUNT (BEAKER) 0.57 K/ L 0.24-0.36 H (test code = 415) EOSINOPHILS ABSOLUTE COUNT 0.15 K/ L 0.04-0.36 (BEAKER) (test code = 416) BASOPHILS ABSOLUTE COUNT (BEAKER) 0.03 K/ L 0.01-0.08 (test code = 417) IMMATURE GRANULOCYTES-RELATIVE 1 % 0-1 PERCENT (BEAKER) (test code = 2801) C. DIFFICILE GDH [id number] 16:38:00 Test Item Value Reference Range Interpretation Comments CDT TOXIN (test code Negative Negative = [id number]) CDT GDH ANTIGEN (test Negative Negative No ind ication of code = [id number]) Clostridi um difficile infection and n o colonization. Discontinue ent germaine isolation and t herapy. Testing performed by [employer] Surgical Rapid Cassette Assay. For GDH, published sensitivity of the assay is 98.7% compared to cytotoxicity testing. For Toxin AB, published sensitivity is 87.8% and specificity 99.4% compared to cytotoxicity testing.Verification of kit performance was done by the [facility] MicrobiologyLab prior to clinical use.POCT-GLUCOSE [id number] 08:49:00 Test Item Value Reference Range Interpretation Comments POC-GLUCOSE METER 97 mg/dL 70-[address] [facility] 6720 (BEAKER) (test code = [place] [address] 1538) IRON, TIBC, % SAT. (WITHOUT FERRITIN)2018-04-14 07:51:00 Test Item Value Reference Range Interpretation Comments IRON (BEAKER) (test code = 547) 94 ug/dL 40-160 TOTAL IRON BINDING CAPACITY 188 ug/dL 250-450 L (BEAKER) (test code = 769) IRON % SATURATION (2) (BEAKER) 50 % 20-55 (test code = 2590) [id number] 07:34:00 Test Item Value Reference Range Interpretation Comments FERRITIN (BEAKER) (test code = 361) 591 ng/mL 5-275 H CALCIUM, [id number] 07:23:00 Test Item Value Reference Range Interpretation Comments CALCIUM IONIZED (BEAKER) (test 0.98 mmol/L 1.12-1.27 L code = 698) PH, BLOOD (BEAKER) (test code = 7.43 1810) COMPREHENSIVE METABOLIC [id number] 07:06:00 Test Item Value Reference Range Interpretation Comments TOTAL PROTEIN 5.3 gm/dL 6.0-8.3 L (BEAKER) (test code = 770) ALBUMIN (BEAKER) 2.3 g/dL 3.5-5.0 L (test code = 1145) ALKALINE PHOSPHATASE 226 U/L 40-150 H (BEAKER) (test code = 346) BILIRUBIN TOTAL 1.2 mg/dL 0.2-1.2 (BEAKER) (test code = 377) SODIUM (BEAKER) (test 146 meq/L 136-145 H code = 381) POTASSIUM (BEAKER) 3.8 meq/L 3.5-5.1 (test code = 379) CHLORIDE (BEAKER) 114 meq/L 98-107 H (test code = 382) CO2 (BEAKER) (test 26 meq/L 22-29 code = 355) BLOOD UREA NITROGEN 27 mg/dL 7-21 H (BEAKER) (test code = 354) CREATININE (BEAKER) 0.97 mg/dL 0.57-1.25 (test code = 358) GLUCOSE RANDOM 86 mg/dL 70-105 (BEAKER) (test code = 652) CALCIUM (BEAKER) 7.5 mg/dL 8.4-10.2 L (test code = 697) AST (SGOT) (BEAKER) 22 U/L 5-34 (test code = 353) ALT (SGPT) (BEAKER) 20 U/L 6-55 (test code = 347) EGFR (BEAKER) (test 61 mL/min/1.73 ESTIMA MILAN GFR IS code = 1092) sq m NOT ACCURATE CREATININE CLEARANCE IN PREDICTING GLOMERULAR FILTRATION RATE . ESTIMATED GFR I S NOT APPLICABLE FOR DIALYSIS PATIEN TS. [id number] 06:49:00 Test Item Value Reference Range Interpretation Comments PHOSPHORUS (BEAKER) (test code = 2.9 mg/dL 2.3-4.7 604) [id number] 06:49:00 Test Item Value Reference Range Interpretation Comments MAGNESIUM (BEAKER) (test code = 1.1 mg/dL 1.6-2.6 L 627) HEPATIC FUNCTION [id number] 06:49:00 Test Item Value Reference Range Interpretation Comments TOTAL PROTEIN (BEAKER) (test code = 5.3 gm/dL 6.0-8.3 L 770) ALBUMIN (BEAKER) (test code = 1145) 2.3 g/dL 3.5-5.0 L BILIRUBIN TOTAL (BEAKER) (test code 1.2 mg/dL 0.2-1.2 = 377) BILIRUBIN DIRECT (BEAKER) (test 0.9 mg/dL 0.1-0.5 H code = 706) ALKALINE PHOSPHATASE (BEAKER) (test 226 U/L 40-150 H code = 346) AST (SGOT) (BEAKER) (test code = 22 U/L 5-34 353) ALT (SGPT) (BEAKER) (test code = 20 U/L 6-55 347) [id number] 06:49:00 Test Item Value Reference Range Interpretation Comments AMYLASE (BEAKER) (test code = 349) 50 U/L 25-125 [id number] 06:49:00 Test Item Value Reference Range Interpretation Comments LIPASE (BEAKER) (test code = 749) 33 U/L 8-78 CBC W/PLT COUNT & AUTO [id number] 05:59:00 Test Item Value Reference Range Interpretation Comments WHITE BLOOD CELL COUNT (BEAKER) 6.9 K/ L 3.5-10.5 (test code = 775) RED BLOOD CELL COUNT (BEAKER) 3.02 M/ L 3.93-5.22 L (test code = 761) HEMOGLOBIN (BEAKER) (test code = 8.3 GM/DL 11.2-15.7 L 410) HEMATOCRIT (BEAKER) (test code = 26.4 % 34.1-44.9 L 411) MEAN CORPUSCULAR VOLUME (BEAKER) 87.4 fL 79.4-94.8 (test code = 753) MEAN CORPUSCULAR HEMOGLOBIN 27.5 pg 25.6-32.2 (BEAKER) (test code = 751) MEAN CORPUSCULAR HEMOGLOBIN CONC 31.4 GM/DL 32.2-35.5 L (BEAKER) (test code = 752) RED CELL DISTRIBUTION WIDTH 16.5 % 11.7-14.4 H (BEAKER) (test code = 412) PLATELET COUNT (BEAKER) (test 232 K/CU MM 150-450 code = 756) MEAN PLATELET VOLUME (BEAKER) 9.9 fL 9.4-12.3 (test code = 754) NUCLEATED RED BLOOD CELLS 0 /100 WBC 0-0 (BEAKER) (test code = 413) NEUTROPHILS RELATIVE PERCENT 65 % (BEAKER) (test code = 429) LYMPHOCYTES RELATIVE PERCENT 23 % (BEAKER) (test code = 430) MONOCYTES RELATIVE PERCENT 8 % (BEAKER) (test code = 431) EOSINOPHILS RELATIVE PERCENT 4 % (BEAKER) (test code = 432) BASOPHILS RELATIVE PERCENT 1 % (BEAKER) (test code = 437) NEUTROPHILS ABSOLUTE COUNT 4.46 K/ L 1.56-6.13 (BEAKER) (test code = 670) LYMPHOCYTES ABSOLUTE COUNT 1.57 K/ L 1.18-3.74 (BEAKER) (test code = 414) MONOCYTES ABSOLUTE COUNT (BEAKER) 0.53 K/ L 0.24-0.36 H (test code = 415) EOSINOPHILS ABSOLUTE COUNT 0.26 K/ L 0.04-0.36 (BEAKER) (test code = 416) BASOPHILS ABSOLUTE COUNT (BEAKER) 0.04 K/ L 0.01-0.08 (test code = 417) IMMATURE GRANULOCYTES-RELATIVE 1 % 0-1 PERCENT (BEAKER) (test code = 2801) CBC W/PLT COUNT & AUTO [id number] 05:57:00 Test Item Value Reference Range Interpretation Comments WHITE BLOOD CELL COUNT (BEAKER) 6.7 K/ L 3.5-10.5 (test code = 775) RED BLOOD CELL COUNT (BEAKER) 3.01 M/ L 3.93-5.22 L (test code = 761) HEMOGLOBIN (BEAKER) (test code = 8.3 GM/DL 11.2-15.7 L 410) HEMATOCRIT (BEAKER) (test code = 26.3 % 34.1-44.9 L 411) MEAN CORPUSCULAR VOLUME (BEAKER) 87.4 fL 79.4-94.8 (test code = 753) MEAN CORPUSCULAR HEMOGLOBIN 27.6 pg 25.6-32.2 (BEAKER) (test code = 751) MEAN CORPUSCULAR HEMOGLOBIN CONC 31.6 GM/DL 32.2-35.5 L (BEAKER) (test code = 752) RED CELL DISTRIBUTION WIDTH 16.6 % 11.7-14.4 H (BEAKER) (test code = 412) PLATELET COUNT (BEAKER) (test 233 K/CU MM 150-450 code = 756) MEAN PLATELET VOLUME (BEAKER) 9.9 fL 9.4-12.3 (test code = 754) NUCLEATED RED BLOOD CELLS 0 /100 WBC 0-0 (BEAKER) (test code = 413) NEUTROPHILS RELATIVE PERCENT 65 % (BEAKER) (test code = 429) LYMPHOCYTES RELATIVE PERCENT 22 % (BEAKER) (test code = 430) MONOCYTES RELATIVE PERCENT 9 % (BEAKER) (test code = 431) EOSINOPHILS RELATIVE PERCENT 3 % (BEAKER) (test code = 432) BASOPHILS RELATIVE PERCENT 1 % (BEAKER) (test code = 437) NEUTROPHILS ABSOLUTE COUNT 4.34 K/ L 1.56-6.13 (BEAKER) (test code = 670) LYMPHOCYTES ABSOLUTE COUNT 1.50 K/ L 1.18-3.74 (BEAKER) (test code = 414) MONOCYTES ABSOLUTE COUNT (BEAKER) 0.59 K/ L 0.24-0.36 H (test code = 415) EOSINOPHILS ABSOLUTE COUNT 0.21 K/ L 0.04-0.36 (BEAKER) (test code = 416) BASOPHILS ABSOLUTE COUNT (BEAKER) 0.04 K/ L 0.01-0.08 (test code = 417) IMMATURE GRANULOCYTES-RELATIVE 1 % 0-1 PERCENT (BANNER) (test code = 2801) POCT-GLUCOSE [id number] 21:44:00 Test Item Value Reference Range Interpretation Comments POC-GLUCOSE METER 100 mg/dL 70-110 TESTED AT [place] [address] (BANNER) (test code = [facility]ita [facility] 1538) [address] POCT-GLUCOSE [id number] 18:42:00 Test Item Value Reference Range Interpretation Comments POC-GLUCOSE METER 100 mg/dL 70-110 TESTED AT [place] [address] (BANNER) (test code = [facility] 1538) [address] POCT-GLUCOSE [id number] 12:28:00 Test Item Value Reference Range Interpretation Comments POC-GLUCOSE METER 123 mg/dL 70-110 H TESTED AT [place] [address] (BANNER) (test code = [facility] 1538) [address] POCT-GLUCOSE [id number] 09:13:00 Test Item Value Reference Range Interpretation Comments POC-GLUCOSE METER 130 mg/dL 70-110 H TESTED AT [place] [address] (BANNER) (test code = [facility] 1538) [address] CALCIUM, [id number] 07:28:00 Test Item Value Reference Range Interpretation Comments CALCIUM IONIZED (BEAKER) (test 0.97 mmol/L 1.12-1.27 L code = 698) PH, BLOOD (BEAKER) (test code = 7.47 1810) BASIC METABOLIC [id number] 07:25:00 Test Item Value Reference Range Interpretation Comments SODIUM (BEAKER) 147 meq/L 136-145 H (test code = 381) POTASSIUM (BEAKER) 3.9 meq/L 3.5-5.1 (test code = 379) CHLORIDE (BEAKER) 115 meq/L 98-107 H (test code = 382) CO2 (BEAKER) (test 23 meq/L 22-29 code = 355) BLOOD UREA NITROGEN 43 mg/dL 7-21 H (BEAKER) (test code = 354) CREATININE (BEAKER) 1.33 mg/dL 0.57-1.25 H (test code = 358) GLUCOSE RANDOM 92 mg/dL 70-105 (BEAKER) (test code = 652) CALCIUM (BEAKER) 7.6 mg/dL 8.4-10.2 L (test code = 697) EGFR (BEAKER) (test 42 mL/min/1.73 ESTIMA MILAN GFR IS code = 1092) sq m NOT ACCURATE CREATININE CLEARANCE IN PREDICTING GLOMERULAR FILTRATION RATE . ESTIMATED GFR I S NOT APPLICABLE FOR DIALYSIS PATIEN TS. [id number] 07:12:00 Test Item Value Reference Range Interpretation Comments PHOSPHORUS (BEAKER) (test code = 3.2 mg/dL 2.3-4.7 604) [id number] 07:12:00 Test Item Value Reference Range Interpretation Comments MAGNESIUM (BEAKER) (test code = 1.2 mg/dL 1.6-2.6 L 627) HEPATIC FUNCTION [id number] 07:12:00 Test Item Value Reference Range Interpretation Comments TOTAL PROTEIN (BEAKER) (test code = 5.6 gm/dL 6.0-8.3 L 770) ALBUMIN (BEAKER) (test code = 1145) 2.5 g/dL 3.5-5.0 L BILIRUBIN TOTAL (BEAKER) (test code 1.3 mg/dL 0.2-1.2 H = 377) BILIRUBIN DIRECT (BEAKER) (test 0.9 mg/dL 0.1-0.5 H code = 706) ALKALINE PHOSPHATASE (BEAKER) (test 279 U/L 40-150 H code = 346) AST (SGOT) (BEAKER) (test code = 23 U/L 5-34 353) ALT (SGPT) (BEAKER) (test code = 28 U/L 6-55 347) [id number] 07:12:00 Test Item Value Reference Range Interpretation Comments AMYLASE (BEAKER) (test code = 349) 37 U/L 25-125 [id number] 07:12:00 Test Item Value Reference Range Interpretation Comments LIPASE (BEAKER) (test code = 749) 33 U/L 8-78 CBC W/PLT COUNT & AUTO [id number] 06:38:00 Test Item Value Reference Range Interpretation Comments WHITE BLOOD CELL COUNT (BEAKER) 11.7 K/ L 3.5-10.5 H (test code = 775) RED BLOOD CELL COUNT (BEAKER) 3.22 M/ L 3.93-5.22 L (test code = 761) HEMOGLOBIN (BEAKER) (test code = 8.8 GM/DL 11.2-15.7 L 410) HEMATOCRIT (BEAKER) (test code = 27.6 % 34.1-44.9 L 411) MEAN CORPUSCULAR VOLUME (BEAKER) 85.7 fL 79.4-94.8 (test code = 753) MEAN CORPUSCULAR HEMOGLOBIN 27.3 pg 25.6-32.2 (BEAKER) (test code = 751) MEAN CORPUSCULAR HEMOGLOBIN CONC 31.9 GM/DL 32.2-35.5 L (BEAKER) (test code = 752) RED CELL DISTRIBUTION WIDTH 16.0 % 11.7-14.4 H (BEAKER) (test code = 412) PLATELET COUNT (BEAKER) (test 259 K/CU MM 150-450 code = 756) MEAN PLATELET VOLUME (BEAKER) 10.2 fL 9.4-12.3 (test code = 754) NUCLEATED RED BLOOD CELLS 0 /100 WBC 0-0 (BEAKER) (test code = 413) NEUTROPHILS RELATIVE PERCENT 73 % (BEAKER) (test code = 429) LYMPHOCYTES RELATIVE PERCENT 16 % (BEAKER) (test code = 430) MONOCYTES RELATIVE PERCENT 7 % (BEAKER) (test code = 431) EOSINOPHILS RELATIVE PERCENT 2 % (BEAKER) (test code = 432) BASOPHILS RELATIVE PERCENT 0 % (BEAKER) (test code = 437) NEUTROPHILS ABSOLUTE COUNT 8.47 K/ L 1.56-6.13 H (BEAKER) (test code = 670) LYMPHOCYTES ABSOLUTE COUNT 1.84 K/ L 1.18-3.74 (BEAKER) (test code = 414) MONOCYTES ABSOLUTE COUNT (BEAKER) 0.83 K/ L 0.24-0.36 H (test code = 415) EOSINOPHILS ABSOLUTE COUNT 0.22 K/ L 0.04-0.36 (BEAKER) (test code = 416) BASOPHILS ABSOLUTE COUNT (BEAKER) 0.05 K/ L 0.01-0.08 (test code = 417) IMMATURE GRANULOCYTES-RELATIVE 2 % 0-1 H PERCENT (BANNER) (test code = 2801) POCT-GLUCOSE [id number] 22:27:00 Test Item Value Reference Range Interpretation Comments POC-GLUCOSE METER 98 mg/dL 70-[address] [facility] 67 (BANNER) (test code = [place] [facility] [address] 1538) POCT-GLUCOSE [id number] 18:26:00 Test Item Value Reference Range Interpretation Comments POC-GLUCOSE METER 107 mg/dL 70-[address] [facility] 67[address] (BANNER) (test code = [place] [facility] 1538) [address] [place], [id number] 17:29:00INTRA OP IMAGINGReason for exam:->CBD STONESFINAL REPORT History: Common bile duct stones COMPARISON: 04/06/2018 DISCUSSION: Multiple intraoperative procedural images from an ERCP examination were submitted for interpretation. Neither was a radiologist present nor requested during the procedure. The examination was submitted for interpretation following completion of the procedure. Findings should be correlated with intraprocedural observations. Limited ERCP images demonstrates limited opacification of the biliary system with some suspected narrowing and irregularity of the common bile duct. The findings could be due to some stricture or mass. Underlying stones or sludge cannot be excluded. Findings should be correlatedwith intraprocedural observations. The total fluoroscopy time was 22 seconds. A total of 4 static images were acquired. Signed: Carlene Pierre MDReport Verified Date/Time: 04/12/2018 17:29:25 Reading Location: [address] Consult Reading Room POCT-GLUCOSE [id number] 13:58:00 Test Item Value Reference Range Interpretation Comments POC-GLUCOSE METER 105 mg/dL 70-[address] [facility] 67[address] (BANNER) (test code = [place] [facility] 1538) [id number] COMPREHENSIVE METABOLIC [id number] 08:36:00 Test Item Value Reference Range Interpretation Comments TOTAL PROTEIN 5.7 gm/dL 6.0-8.3 L (BANNER) (test code = 770) ALBUMIN (BANNER) 2.4 g/dL 3.5-5.0 L (test code = 1145) ALKALINE PHOSPHATASE 329 U/L 40-150 H (BEAKER) (test code = 346) BILIRUBIN TOTAL 1.3 mg/dL 0.2-1.2 H (BEAKER) (test code = 377) SODIUM (BEAKER) (test 144 meq/L 136-145 code = 381) POTASSIUM (BEAKER) 3.4 meq/L 3.5-5.1 L (test code = 379) CHLORIDE (BEAKER) 112 meq/L 98-107 H (test code = 382) CO2 (BEAKER) (test 24 meq/L 22-29 code = 355) BLOOD UREA NITROGEN 58 mg/dL 7-21 H (BEAKER) (test code = 354) CREATININE (BEAKER) 1.80 mg/dL 0.57-1.25 H (test code = 358) GLUCOSE RANDOM 95 mg/dL 70-105 (BEAKER) (test code = 652) CALCIUM (BEAKER) 7.9 mg/dL 8.4-10.2 L (test code = 697) AST (SGOT) (BEAKER) 29 U/L 5-34 (test code = 353) ALT (SGPT) (BEAKER) 34 U/L 6-55 (test code = 347) EGFR (BEAKER) (test 30 mL/min/1.73 ESTIMA MILAN GFR IS code = 1092) sq m NOT ACCURATE CREATININE CLEARANCE IN PREDICTING GLOMERULAR FILTRATION RATE . ESTIMATED GFR I S NOT APPLICABLE FOR DIALYSIS PATIEN TS. POCT-GLUCOSE [id number] 07:57:00 Test Item Value Reference Range Interpretation Comments POC-GLUCOSE METER 97 mg/dL 70-[address] [facility] 6720 (BEAKER) (test code = [place] [address] 1538) [id number] 07:53:00 Test Item Value Reference Range Interpretation Comments PHOSPHORUS (BEAKER) (test code = 3.4 mg/dL 2.3-4.7 604) [id number] 07:53:00 Test Item Value Reference Range Interpretation Comments MAGNESIUM (BEAKER) (test code = 1.5 mg/dL 1.6-2.6 L 627) HEPATIC FUNCTION [id number] 07:53:00 Test Item Value Reference Range Interpretation Comments TOTAL PROTEIN (BEAKER) (test code = 5.7 gm/dL 6.0-8.3 L 770) ALBUMIN (BEAKER) (test code = 1145) 2.4 g/dL 3.5-5.0 L BILIRUBIN TOTAL (BEAKER) (test code 1.3 mg/dL 0.2-1.2 H = 377) BILIRUBIN DIRECT (BEAKER) (test 1.0 mg/dL 0.1-0.5 H code = 706) ALKALINE PHOSPHATASE (BEAKER) (test 329 U/L 40-150 H code = 346) AST (SGOT) (BEAKER) (test code = 29 U/L 5-34 353) ALT (SGPT) (BEAKER) (test code = 34 U/L 6-55 347) [id number] 07:53:00 Test Item Value Reference Range Interpretation Comments AMYLASE (BEAKER) (test code = 349) 39 U/L 25-125 [id number] 07:53:00 Test Item Value Reference Range Interpretation Comments LIPASE (BEAKER) (test code = 749) 35 U/L 8-78 CBC W/PLT COUNT & AUTO [id number] 07:29:00 Test Item Value Reference Range Interpretation Comments WHITE BLOOD CELL COUNT (BEAKER) 11.5 K/ L 3.5-10.5 H (test code = 775) RED BLOOD CELL COUNT (BEAKER) 3.52 M/ L 3.93-5.22 L (test code = 761) HEMOGLOBIN (BEAKER) (test code = 9.7 GM/DL 11.2-15.7 L 410) HEMATOCRIT (BEAKER) (test code = 29.7 % 34.1-44.9 L 411) MEAN CORPUSCULAR VOLUME (BEAKER) 84.4 fL 79.4-94.8 (test code = 753) MEAN CORPUSCULAR HEMOGLOBIN 27.6 pg 25.6-32.2 (BEAKER) (test code = 751) MEAN CORPUSCULAR HEMOGLOBIN CONC 32.7 GM/DL 32.2-35.5 (BEAKER) (test code = 752) RED CELL DISTRIBUTION WIDTH 15.7 % 11.7-14.4 H (BEAKER) (test code = 412) PLATELET COUNT (BEAKER) (test 260 K/CU MM 150-450 code = 756) MEAN PLATELET VOLUME (BEAKER) 10.1 fL 9.4-12.3 (test code = 754) NUCLEATED RED BLOOD CELLS 0 /100 WBC 0-0 (BEAKER) (test code = 413) NEUTROPHILS RELATIVE PERCENT 66 % (BEAKER) (test code = 429) LYMPHOCYTES RELATIVE PERCENT 20 % (BEAKER) (test code = 430) MONOCYTES RELATIVE PERCENT 7 % (BEAKER) (test code = 431) EOSINOPHILS RELATIVE PERCENT 2 % (BEAKER) (test code = 432) BASOPHILS RELATIVE PERCENT 1 % (BEAKER) (test code = 437) NEUTROPHILS ABSOLUTE COUNT 7.53 K/ L 1.56-6.13 H (BEAKER) (test code = 670) LYMPHOCYTES ABSOLUTE COUNT 2.26 K/ L 1.18-3.74 (BEAKER) (test code = 414) MONOCYTES ABSOLUTE COUNT (BEAKER) 0.85 K/ L 0.24-0.36 H (test code = 415) EOSINOPHILS ABSOLUTE COUNT 0.25 K/ L 0.04-0.36 (BEAKER) (test code = 416) BASOPHILS ABSOLUTE COUNT (BEAKER) 0.06 K/ L 0.01-0.08 (test code = 417) IMMATURE GRANULOCYTES-RELATIVE 5 % 0-1 H PERCENT (BEAKER) (test code = 2801) CALCIUM, [id number] 07:25:00 Test Item Value Reference Range Interpretation Comments CALCIUM IONIZED (BEAKER) (test 0.98 mmol/L 1.12-1.27 L code = 698) PH, BLOOD (BEAKER) (test code = 7.44 1810) POCT-GLUCOSE [id number] 06:44:00 Test Item Value Reference Range Interpretation Comments POC-GLUCOSE METER 99 mg/dL 70-[address] [facility] 6720 (BEAKER) (test code = [facility] [address] 1538) POCT-GLUCOSE [id number] 18:41:00 Test Item Value Reference Range Interpretation Comments POC-GLUCOSE METER 121 mg/dL 70-[address] [facility] 6720 (BEAKER) (test code = [facility] 1538) [address] BLOOD [id number] 18:00:00 Test Item Value Reference Range Interpretation Comments CULTURE (BEAKER) (test No growth in 5 days code = 1095) BLOOD [id number] 18:00:00 Test Item Value Reference Range Interpretation Comments CULTURE (BEAKER) (test No growth in 5 days code = 1095) POCT-GLUCOSE [id number] 14:17:00 Test Item Value Reference Range Interpretation Comments POC-GLUCOSE METER 116 mg/dL 70-[address] [facility] 6720 (BEAKER) (test code = [facility] [place] 1538) [id number] POCT-GLUCOSE [id number] 08:52:00 Test Item Value Reference Range Interpretation Comments POC-GLUCOSE METER 90 mg/dL 70-[address] [facility] 6720 (BEAKER) (test code = [facility] [address] 1538) BASIC METABOLIC [id number] 07:40:00 Test Item Value Reference Range Interpretation Comments SODIUM (BEAKER) 143 meq/L 136-145 (test code = 381) POTASSIUM (BEAKER) 3.1 meq/L 3.5-5.1 L (test code = 379) CHLORIDE (BEAKER) 111 meq/L 98-107 H (test code = 382) CO2 (BEAKER) (test 21 meq/L 22-29 L code = 355) BLOOD UREA NITROGEN 80 mg/dL 7-21 H (BEAKER) (test code = 354) CREATININE (BEAKER) 2.46 mg/dL 0.57-1.25 H (test code = 358) GLUCOSE RANDOM 115 mg/dL 70-105 H (BEAKER) (test code = 652) CALCIUM (BEAKER) 7.9 mg/dL 8.4-10.2 L (test code = 697) EGFR (BEAKER) (test 21 mL/min/1.73 ESTIMA MILAN GFR IS code = 1092) sq m NOT ACCURATE CREATININE CLEARANCE IN PREDICTING GLOMERULAR FILTRATION RATE . ESTIMATED GFR I S NOT APPLICABLE FOR DIALYSIS PATIEN TS. [id number] 07:37:00 Test Item Value Reference Range Interpretation Comments PHOSPHORUS (BEAKER) (test code = 4.9 mg/dL 2.3-4.7 H 604) [id number] 07:37:00 Test Item Value Reference Range Interpretation Comments MAGNESIUM (BEAKER) (test code = 1.8 mg/dL 1.6-2.6 627) HEPATIC FUNCTION [id number] 07:37:00 Test Item Value Reference Range Interpretation Comments TOTAL PROTEIN (BEAKER) (test code = 5.4 gm/dL 6.0-8.3 L 770) ALBUMIN (BEAKER) (test code = 1145) 2.3 g/dL 3.5-5.0 L BILIRUBIN TOTAL (BEAKER) (test code 1.4 mg/dL 0.2-1.2 H = 377) BILIRUBIN DIRECT (BEAKER) (test 1.0 mg/dL 0.1-0.5 H code = 706) ALKALINE PHOSPHATASE (BEAKER) (test 298 U/L 40-150 H code = 346) AST (SGOT) (BEAKER) (test code = 32 U/L 5-34 353) ALT (SGPT) (BEAKER) (test code = 38 U/L 6-55 347) [id number] 07:37:00 Test Item Value Reference Range Interpretation Comments AMYLASE (BEAKER) (test code = 349) 52 U/L 25-125 [id number] 07:37:00 Test Item Value Reference Range Interpretation Comments LIPASE (BEAKER) (test code = 749) 42 U/L 8-78 CBC W/PLT COUNT & AUTO [id number] 06:42:00 Test Item Value Reference Range Interpretation Comments WHITE BLOOD CELL COUNT (BEAKER) 9.6 K/ L 3.5-10.5 (test code = 775) RED BLOOD CELL COUNT (BEAKER) 3.45 M/ L 3.93-5.22 L (test code = 761) HEMOGLOBIN (BEAKER) (test code = 9.6 GM/DL 11.2-15.7 L 410) HEMATOCRIT (BEAKER) (test code = 28.8 % 34.1-44.9 L 411) MEAN CORPUSCULAR VOLUME (BEAKER) 83.5 fL 79.4-94.8 (test code = 753) MEAN CORPUSCULAR HEMOGLOBIN 27.8 pg 25.6-32.2 (BEAKER) (test code = 751) MEAN CORPUSCULAR HEMOGLOBIN CONC 33.3 GM/DL 32.2-35.5 (BEAKER) (test code = 752) RED CELL DISTRIBUTION WIDTH 15.7 % 11.7-14.4 H (BEAKER) (test code = 412) PLATELET COUNT (BEAKER) (test 222 K/CU MM 150-450 code = 756) MEAN PLATELET VOLUME (BEAKER) 10.5 fL 9.4-12.3 (test code = 754) NUCLEATED RED BLOOD CELLS 0 /100 WBC 0-0 (BEAKER) (test code = 413) NEUTROPHILS RELATIVE PERCENT 65 % (BEAKER) (test code = 429) LYMPHOCYTES RELATIVE PERCENT 20 % (BEAKER) (test code = 430) MONOCYTES RELATIVE PERCENT 8 % (BEAKER) (test code = 431) EOSINOPHILS RELATIVE PERCENT 2 % (BEAKER) (test code = 432) BASOPHILS RELATIVE PERCENT 0 % (BEAKER) (test code = 437) NEUTROPHILS ABSOLUTE COUNT 6.25 K/ L 1.56-6.13 H (BEAKER) (test code = 670) LYMPHOCYTES ABSOLUTE COUNT 1.87 K/ L 1.18-3.74 (BEAKER) (test code = 414) MONOCYTES ABSOLUTE COUNT (BEAKER) 0.78 K/ L 0.24-0.36 H (test code = 415) EOSINOPHILS ABSOLUTE COUNT 0.19 K/ L 0.04-0.36 (BEAKER) (test code = 416) BASOPHILS ABSOLUTE COUNT (BEAKER) 0.04 K/ L 0.01-0.08 (test code = 417) IMMATURE GRANULOCYTES-RELATIVE 5 % 0-1 H PERCENT (BEAKER) (test code = 2801) CALCIUM, [id number] 06:36:00 Test Item Value Reference Range Interpretation Comments CALCIUM IONIZED (BEAKER) (test 1.01 mmol/L 1.12-1.27 L code = 698) PH, BLOOD (BEAKER) (test code = 7.45 1810) POCT-GLUCOSE [id number] 23:47:00 Test Item Value Reference Range Interpretation Comments POC-GLUCOSE METER 85 mg/dL 70-110 TESTED AT [place] [id number] [facility] ([facility] [address]38) POCT-GLUCOSE [id number] 17:38:00 Test Item Value Reference Range Interpretation Comments POC-GLUCOSE METER 119 mg/dL 70-[address] [facility] 67[address] (BEAKER) (test code = [facility] Anita [facility] 1538) [id number] POCT-GLUCOSE [id number] 12:41:00 Test Item Value Reference Range Interpretation Comments POC-GLUCOSE METER 123 mg/dL 70-[address] [facility] 67[address] (BEAKER) (test code = ASTON Howard [place] 1538) [id number] POCT-GLUCOSE [id number] 08:12:00 Test Item Value Reference Range Interpretation Comments POC-GLUCOSE METER 103 mg/dL 70-[address] [facility] 67[address] (BEAKER) (test code = ASTON Howard [place] 1538) [address] CBC W/PLT COUNT & AUTO [id number] 05:34:00 Test Item Value Reference Range Interpretation Comments WHITE BLOOD CELL COUNT (BEAKER) 12.7 K/ L 3.5-10.5 H (test code = 775) RED BLOOD CELL COUNT (BEAKER) 3.46 M/ L 3.93-5.22 L (test code = 761) HEMOGLOBIN (BEAKER) (test code = 9.6 GM/DL 11.2-15.7 L 410) HEMATOCRIT (BEAKER) (test code = 28.6 % 34.1-44.9 L 411) MEAN CORPUSCULAR VOLUME (BEAKER) 82.7 fL 79.4-94.8 (test code = 753) MEAN CORPUSCULAR HEMOGLOBIN 27.7 pg 25.6-32.2 (BEAKER) (test code = 751) MEAN CORPUSCULAR HEMOGLOBIN CONC 33.6 GM/DL 32.2-35.5 (BEAKER) (test code = 752) RED CELL DISTRIBUTION WIDTH 15.8 % 11.7-14.4 H (BEAKER) (test code = 412) PLATELET COUNT (BEAKER) (test 266 K/CU MM 150-450 code = 756) MEAN PLATELET VOLUME (BEAKER) 11.4 fL 9.4-12.3 (test code = 754) NUCLEATED RED BLOOD CELLS 0 /100 WBC 0-0 (BEAKER) (test code = 413) NEUTROPHILS RELATIVE PERCENT 71 % (BEAKER) (test code = 429) LYMPHOCYTES RELATIVE PERCENT 16 % (BEAKER) (test code = 430) MONOCYTES RELATIVE PERCENT 7 % (BEAKER) (test code = 431) EOSINOPHILS RELATIVE PERCENT 1 % (BEAKER) (test code = 432) BASOPHILS RELATIVE PERCENT 0 % (BEAKER) (test code = 437) NEUTROPHILS ABSOLUTE COUNT 9.09 K/ L 1.56-6.13 H (BEAKER) (test code = 670) LYMPHOCYTES ABSOLUTE COUNT 2.05 K/ L 1.18-3.74 (BEAKER) (test code = 414) MONOCYTES ABSOLUTE COUNT (BEAKER) 0.86 K/ L 0.24-0.36 H (test code = 415) EOSINOPHILS ABSOLUTE COUNT 0.10 K/ L 0.04-0.36 (BEAKER) (test code = 416) BASOPHILS ABSOLUTE COUNT (BEAKER) 0.02 K/ L 0.01-0.08 (test code = 417) IMMATURE GRANULOCYTES-RELATIVE 5 % 0-1 H PERCENT (BEAKER) (test code = 2801) BASIC METABOLIC [id number] 05:21:00 Test Item Value Reference Range Interpretation Comments SODIUM (BEAKER) 139 meq/L 136-145 (test code = 381) POTASSIUM (BEAKER) 3.5 meq/L 3.5-5.1 Specimen slightly (test code = 379) hemolyzed CHLORIDE (BEAKER) 109 meq/L 98-107 H (test code = 382) CO2 (BEAKER) (test 19 meq/L 22-29 L code = 355) BLOOD UREA NITROGEN 87 mg/dL 7-21 H (BEAKER) (test code = 354) CREATININE (BEAKER) 3.01 mg/dL 0.57-1.25 H Specimen slightly (test code = 358) hemolyzed GLUCOSE RANDOM 102 mg/dL 70-105 (BEAKER) (test code = 652) CALCIUM (BEAKER) 7.8 mg/dL 8.4-10.2 L (test code = 697) EGFR (BEAKER) (test 16 mL/min/1.73 ESTIMA MILAN GFR IS code = 1092) sq m NOT ACCURATE CREATININE CLEARANCE IN PREDICTING GLOMERULAR FILTRATION RATE . ESTIMATED GFR I S NOT APPLICABLE FOR DIALYSIS PATIEN TS. COMPREHENSIVE METABOLIC [id number] 05:21:00 Test Item Value Reference Range Interpretation Comments TOTAL PROTEIN 5.3 gm/dL 6.0-8.3 L Specimen sligh tly (BEAKER) (test code = hemoly zed 770) ALBUMIN (BEAKER) 2.1 g/dL 3.5-5.0 L Specimen sl ightly (test code = 1145) hemolyzed ALKALINE PHOSPHATASE 303 U/L 40-150 H (BEAKER) (test code = 346) BILIRUBIN TOTAL 1.3 mg/dL 0.2-1.2 H Specimen sli ghtly (BEAKER) (test code = hemoly zed 377) SODIUM (BEAKER) (test 139 meq/L 136-145 code = 381) POTASSIUM (BEAKER) 3.5 meq/L 3.5-5.1 Specimen slightly (test code = 379) hemolyzed CHLORIDE (BEAKER) 109 meq/L 98-107 H (test code = 382) CO2 (BEAKER) (test 19 meq/L 22-29 L code = 355) BLOOD UREA NITROGEN 87 mg/dL 7-21 H (BEAKER) (test code = 354) CREATININE (BEAKER) 3.01 mg/dL 0.57-1.25 H Specimen slightly (test code = 358) hemolyzed GLUCOSE RANDOM 102 mg/dL 70-105 (BEAKER) (test code = 652) CALCIUM (BEAKER) 7.8 mg/dL 8.4-10.2 L (test code = 697) AST (SGOT) (BEAKER) 24 U/L 5-34 Specimen slightly (test code = 353) hemolyzed ALT (SGPT) (BEAKER) 38 U/L 6-55 Specimen slightly (test code = 347) hemolyzed EGFR (BEAKER) (test 16 mL/min/1.73 ESTIMA MILAN GFR IS code = 1092) sq m NOT ACCURATE CREATININE CLEARANCE IN PREDICTING GLOMERULAR FILTRATION RATE . ESTIMATED GFR I S NOT APPLICABLE FOR DIALYSIS PATIEN TS. CALCIUM, [id number] 05:19:00 Test Item Value Reference Range Interpretation Comments CALCIUM IONIZED (BEAKER) (test 0.99 mmol/L 1.12-1.27 L code = 698) PH, BLOOD (BEAKER) (test code = 7.34 1810) [id number] 05:19:00 Test Item Value Reference Range Interpretation Comments MAGNESIUM (BEAKER) 2.3 mg/dL 1.6-2.6 Specimen slightly (test code = 627) hemolyzed [id number] 05:19:00 Test Item Value Reference Range Interpretation Comments PHOSPHORUS (BEAKER) 5.5 mg/dL 2.3-4.7 H Specimen slightly (test code = 604) hemolyzed HEPATIC FUNCTION [id number] 05:19:00 Test Item Value Reference Range Interpretation Comments TOTAL PROTEIN (BEAKER) 5.3 gm/dL 6.0-8.3 L Speci men slightly (test code = 770) hemolyzed ALBUMIN (BEAKER) (test 2.1 g/dL 3.5-5.0 L Speci men slightly code = 1145) hemolyzed BILIRUBIN TOTAL 1.3 mg/dL 0.2-1.2 H Specimen sli ghtly (BEAKER) (test code = hemoly zed 377) BILIRUBIN DIRECT 0.7 mg/dL 0.1-0.5 H Specimen sl ightly (BEAKER) (test code = hemoly zed 706) ALKALINE PHOSPHATASE 303 U/L 40-150 H (BEAKER) (test code = 346) AST (SGOT) (BEAKER) 24 U/L 5-34 Specimen slightly (test code = 353) hemolyzed ALT (SGPT) (BEAKER) 38 U/L 6-55 Specimen slightly (test code = 347) hemolyzed [id number] 05:19:00 Test Item Value Reference Range Interpretation Comments AMYLASE (BEAKER) (test 119 U/L 25-125 Speci men slightly code = 349) hemolyzed [id number] 05:19:00 Test Item Value Reference Range Interpretation Comments LIPASE (BEAKER) (test code = 749) 126 U/L 8-78 H POCT-GLUCOSE [id number] 18:37:00 Test Item Value Reference Range Interpretation Comments POC-GLUCOSE METER 141 mg/dL 70-[address] [facility] 6720 (BEAKER) (test code = [place] 1538) [address] SODIUM, RANDOM [id number] 15:29:00 Test Item Value Reference Range Interpretation Comments SODIUM URINE (BEAKER) (test code = < meq/L 243) Reference Range: No NormalsCREATININE, RANDOM [id number] 15:26:00 Test Item Value Reference Range Interpretation Comments CREATININE URINE (BEAKER) (test 59.5 mg/dL code = 375) Reference Range: No [id number] 13:32:00 Test Item Value Reference Range Interpretation Comments POTASSIUM (BEAKER) 3.9 meq/L 3.5-5.1 Specimen slightly (test code = 379) hemolyzed Check Serum Potassium level 2 hours after oral potassium replacement completed or 30 min after intravenous potassium replacement.POCT-GLUCOSE [id number] 12:21:00 Test Item Value Reference Range Interpretation Comments POC-GLUCOSE METER 156 mg/dL 70-[address] [facility] 6720 (BEAKER) (test code = [place] 1538) [address] CBC W/PLT COUNT & AUTO [id number] 09:22:00 Test Item Value Reference Range Interpretation Comments WHITE BLOOD CELL COUNT (BEAKER) 18.0 K/ L 3.5-10.5 H (test code = 775) RED BLOOD CELL COUNT (BEAKER) 4.00 M/ L 3.93-5.22 (test code = 761) HEMOGLOBIN (BEAKER) (test code = 10.9 GM/DL 11.2-15.7 L 410) HEMATOCRIT (BEAKER) (test code = 32.8 % 34.1-44.9 L 411) MEAN CORPUSCULAR VOLUME (BEAKER) 82.0 fL 79.4-94.8 (test code = 753) MEAN CORPUSCULAR HEMOGLOBIN 27.3 pg 25.6-32.2 (BEAKER) (test code = 751) MEAN CORPUSCULAR HEMOGLOBIN CONC 33.2 GM/DL 32.2-35.5 (BEAKER) (test code = 752) RED CELL DISTRIBUTION WIDTH 15.1 % 11.7-14.4 H (BEAKER) (test code = 412) PLATELET COUNT (BEAKER) (test 264 K/CU MM 150-450 code = 756) MEAN PLATELET VOLUME (BEAKER) 11.0 fL 9.4-12.3 (test code = 754) NUCLEATED RED BLOOD CELLS 0 /100 WBC 0-0 (BEAKER) (test code = 413) NEUTROPHILS RELATIVE PERCENT 86 % (BEAKER) (test code = 429) LYMPHOCYTES RELATIVE PERCENT 7 % (BEAKER) (test code = 430) MONOCYTES RELATIVE PERCENT 2 % (BEAKER) (test code = 431) EOSINOPHILS RELATIVE PERCENT 0 % (BEAKER) (test code = 432) BASOPHILS RELATIVE PERCENT 0 % (BEAKER) (test code = 437) NEUTROPHILS ABSOLUTE COUNT 15.45 K/ L 1.56-6.13 H (BEAKER) (test code = 670) LYMPHOCYTES ABSOLUTE COUNT 1.17 K/ L 1.18-3.74 L (BEAKER) (test code = 414) MONOCYTES ABSOLUTE COUNT (BEAKER) 0.39 K/ L 0.24-0.36 H (test code = 415) EOSINOPHILS ABSOLUTE COUNT 0.00 K/ L 0.04-0.36 L (BEAKER) (test code = 416) BASOPHILS ABSOLUTE COUNT (BEAKER) 0.03 K/ L 0.01-0.08 (test code = 417) IMMATURE GRANULOCYTES-RELATIVE 5 % 0-1 H PERCENT (BEAKER) (test code = 2801) POCT-GLUCOSE [id number] 08:18:00 Test Item Value Reference Range Interpretation Comments POC-GLUCOSE METER 144 mg/dL 70-110 H TESTED AT [place] [address] (BANNER) (test code = [facility] 1538) [address] POCT-GLUCOSE [id number] 06:20:00 Test Item Value Reference Range Interpretation Comments POC-GLUCOSE METER 153 mg/dL 70-110 H TESTED AT [place] [address] (BANNER) (test code = [facility] 1538) [address] CALCIUM, [id number] 05:45:00 Test Item Value Reference Range Interpretation Comments CALCIUM IONIZED (BEAKER) (test 0.99 mmol/L 1.12-1.27 L code = 698) PH, BLOOD (BANNER) (test code = 7.43 1810) [id number] 04:55:00 Test Item Value Reference Range Interpretation Comments PHOSPHORUS (BEAKER) (test code = 5.4 mg/dL 2.3-4.7 H 604) [id number] 04:55:00 Test Item Value Reference Range Interpretation Comments MAGNESIUM (BEAKER) (test code = 2.3 mg/dL 1.6-2.6 627) HEPATIC FUNCTION [id number] 04:55:00 Test Item Value Reference Range Interpretation Comments TOTAL PROTEIN (BEAKER) (test code = 5.8 gm/dL 6.0-8.3 L 770) ALBUMIN (BEAKER) (test code = 1145) 2.4 g/dL 3.5-5.0 L BILIRUBIN TOTAL (BEAKER) (test code 1.7 mg/dL 0.2-1.2 H = 377) BILIRUBIN DIRECT (BEAKER) (test 1.3 mg/dL 0.1-0.5 H code = 706) ALKALINE PHOSPHATASE (BEAKER) (test 374 U/L 40-150 H code = 346) AST (SGOT) (BEAKER) (test code = 19 U/L 5-34 353) ALT (SGPT) (BEAKER) (test code = 44 U/L 6-55 347) [id number] 04:55:00 Test Item Value Reference Range Interpretation Comments AMYLASE (BEAKER) (test code = 349) 47 U/L 25-125 [id number] 04:55:00 Test Item Value Reference Range Interpretation Comments LIPASE (BEAKER) (test code = 749) 54 U/L 8-78 BASIC METABOLIC [id number] 04:55:00 Test Item Value Reference Range Interpretation Comments SODIUM (BEAKER) 137 meq/L 136-145 (test code = 381) POTASSIUM (BEAKER) 3.2 meq/L 3.5-5.1 L (test code = 379) CHLORIDE (BEAKER) 107 meq/L 98-107 (test code = 382) CO2 (BEAKER) (test 17 meq/L 22-29 L code = 355) BLOOD UREA NITROGEN 93 mg/dL 7-21 H (BEAKER) (test code = 354) CREATININE (BEAKER) 3.31 mg/dL 0.57-1.25 H (test code = 358) GLUCOSE RANDOM 132 mg/dL 70-105 H (BEAKER) (test code = 652) CALCIUM (BEAKER) 8.2 mg/dL 8.4-10.2 L (test code = 697) EGFR (BEAKER) (test 15 mL/min/1.73 ESTIMA MILAN GFR IS code = 1092) sq m NOT ACCURATE CREATININE CLEARANCE IN PREDICTING GLOMERULAR FILTRATION RATE . ESTIMATED GFR I S NOT APPLICABLE FOR DIALYSIS PATIEN TS. POCT-GLUCOSE [id number] 00:13:00 Test Item Value Reference Range Interpretation Comments POC-GLUCOSE METER 153 mg/dL 70-[address] [facility] 6720 (BEAKER) (test code = [place] 4081) [address] POCT-GLUCOSE [id number] 19:21:00 Test Item Value Reference Range Interpretation Comments POC-GLUCOSE METER 142 mg/dL 70-[address] [facility] 6720 (BEAKER) (test code = [place] 1538) [address] POCT-GLUCOSE [id number] 12:58:00 Test Item Value Reference Range Interpretation Comments POC-GLUCOSE METER 150 mg/dL 70-[address] [facility] 6720 (BEAKER) (test code = [place] 1538) [address] CBC W/PLT COUNT & AUTO [id number] 07:46:00 Test Item Value Reference Range Interpretation Comments WHITE BLOOD CELL COUNT (BEAKER) 28.2 K/ L 3.5-10.5 H (test code = 775) RED BLOOD CELL COUNT (BEAKER) 3.61 M/ L 3.93-5.22 L (test code = 761) HEMOGLOBIN (BEAKER) (test code = 9.9 GM/DL 11.2-15.7 L 410) HEMATOCRIT (BEAKER) (test code = 28.5 % 34.1-44.9 L 411) MEAN CORPUSCULAR VOLUME (BEAKER) 78.9 fL 79.4-94.8 L (test code = 753) MEAN CORPUSCULAR HEMOGLOBIN 27.4 pg 25.6-32.2 (BEAKER) (test code = 751) MEAN CORPUSCULAR HEMOGLOBIN CONC 34.7 GM/DL 32.2-35.5 (BEAKER) (test code = 752) RED CELL DISTRIBUTION WIDTH 14.5 % 11.7-14.4 H (BEAKER) (test code = 412) PLATELET COUNT (BEAKER) (test 185 K/CU MM 150-450 code = 756) MEAN PLATELET VOLUME (BEAKER) 10.8 fL 9.4-12.3 (test code = 754) NUCLEATED RED BLOOD CELLS 0 /100 WBC 0-0 (BEAKER) (test code = 413) (CELLAVISION MANUAL DIFF)[id number] 07:46:00 Test Item Value Reference Range Interpretation Comments NEUTROPHILS - REL 95 % (CELLAVISION)(BEAKER) (test code = 2816) LYMPHOCYTES - REL 2 % (CELLAVISION)(BEAKER) (test code = 2817) MONOCYTES - REL 1 % (CELLAVISION)(BEAKER) (test code = 2818) BANDS - REL (CELLAVISION)(BEAKER) 2 % 0-10 (test code = 2826) NEUTROPHILS - ABS 26.79 K/ul 1.56-6.13 H (CELLAVISION)(BEAKER) (test code = 2830) LYMPHOCYTES - ABS 0.56 K/ul 1.18-3.74 L (CELLAVISION)(BEAKER) (test code = 2831) MONOCYTES - ABS 0.28 K/uL 0.24-0.36 (CELLAVISION)(BEAKER) (test code = 2832) BANDS - ABS (CELLAVISION)(BEAKER) 0.56 K/uL 0.00-0.80 (test code = 2840) TOTAL COUNTED (BEAKER) (test code 100 = 1351) WBC MORPHOLOGY (BEAKER) (test code Normal = 487) PLT MORPHOLOGY (BEAKER) (test code Normal = 486) POIKILOCYTES (BEAKER) (test code = 1+ few 966) ARTIFACT (CELLAVISION)(BEAKER) Present (test code = 3432) PLATELET CONCENTRATION Adequate (CELLAVISION)(BEAKER) (test code = 3438) Received comment: User comments: Slide comments:POCT-GLUCOSE [id number] 05:45:00 Test Item Value Reference Range Interpretation Comments POC-GLUCOSE METER 135 mg/dL 70-[address] [facility] 6720 (BEAKER) (test code = [place] 1538) [address] BASIC METABOLIC [id number] 04:20:00 Test Item Value Reference Range Interpretation Comments SODIUM (BEAKER) 136 meq/L 136-145 (test code = 381) POTASSIUM (BEAKER) 3.4 meq/L 3.5-5.1 L Specimen slightly (test code = 379) hemolyzed CHLORIDE (BEAKER) 105 meq/L 98-107 (test code = 382) CO2 (BEAKER) (test 18 meq/L 22-29 L code = 355) BLOOD UREA NITROGEN 98 mg/dL 7-21 H (BEAKER) (test code = 354) CREATININE (BEAKER) 3.52 mg/dL 0.57-1.25 H Specimen slightly (test code = 358) hemolyzed GLUCOSE RANDOM 135 mg/dL 70-105 H (BEAKER) (test code = 652) CALCIUM (BEAKER) 8.3 mg/dL 8.4-10.2 L (test code = 697) EGFR (BEAKER) (test 14 mL/min/1.73 ESTIMA MILAN GFR IS code = 1092) sq m NOT ACCURATE CREATININE CLEARANCE IN PREDICTING GLOMERULAR FILTRATION RATE . ESTIMATED GFR I S NOT APPLICABLE FOR DIALYSIS PATIEN TS. [id number] 04:18:00 Test Item Value Reference Range Interpretation Comments MAGNESIUM (BEAKER) 2.9 mg/dL 1.6-2.6 H Specimen slightly (test code = 627) hemolyzed [id number] 04:18:00 Test Item Value Reference Range Interpretation Comments PHOSPHORUS (BEAKER) 5.1 mg/dL 2.3-4.7 H Specimen slightly (test code = 604) hemolyzed HEPATIC FUNCTION [id number] 04:18:00 Test Item Value Reference Range Interpretation Comments TOTAL PROTEIN (BEAKER) 6.0 gm/dL 6.0-8.3 Speci men slightly (test code = 770) hemolyzed ALBUMIN (BEAKER) (test 2.3 g/dL 3.5-5.0 L Speci men slightly code = 1145) hemolyzed BILIRUBIN TOTAL 2.4 mg/dL 0.2-1.2 H Specimen sli ghtly (BEAKER) (test code = hemoly zed 377) BILIRUBIN DIRECT 1.5 mg/dL 0.1-0.5 H Specimen sl ightly (BEAKER) (test code = hemoly zed 706) ALKALINE PHOSPHATASE 431 U/L 40-150 H (BEAKER) (test code = 346) AST (SGOT) (BEAKER) 32 U/L 5-34 Specimen slightly (test code = 353) hemolyzed ALT (SGPT) (BEAKER) 59 U/L 6-55 H Specimen slightly (test code = 347) hemolyzed [id number] 04:18:00 Test Item Value Reference Range Interpretation Comments AMYLASE (BEAKER) (test 58 U/L 25-125 Speci men slightly code = 349) hemolyzed [id number] 04:18:00 Test Item Value Reference Range Interpretation Comments LIPASE (BEAKER) (test code = 749) 64 U/L 8-78 CALCIUM, [id number] 03:45:00 Test Item Value Reference Range Interpretation Comments CALCIUM IONIZED (BANNER) (test 1.08 mmol/L 1.12-1.27 L code = 698) PH, BLOOD (BANNER) (test code = 7.40 1810) POCT-GLUCOSE [id number] 00:32:00 Test Item Value Reference Range Interpretation Comments POC-GLUCOSE METER 138 mg/dL 70-110 H TESTED AT [place] [address] (BANNER) (test code = [facility] 1538) [address] VANCOMYCIN LEVEL, [id number] 19:11:00 Test Item Value Reference Range Interpretation Comments VANCOMYCIN RANDOM (BANNER) (test 11.4 ug/mL code = 523) Reference Range: No NormalsPOCT-GLUCOSE [id number] 17:45:00 Test Item Value Reference Range Interpretation Comments POC-GLUCOSE METER 153 mg/dL 70-110 H TESTED AT [place] [address] (BANNER) (test code = [facility] 1538) [address] POCT-GLUCOSE [id number] 11:46:00 Test Item Value Reference Range Interpretation Comments POC-GLUCOSE METER 120 mg/dL 70-110 H TESTED AT [place] [address] (BANNER) (test code = [facility] 1538) [address] CBC W/PLT COUNT & AUTO [id number] 07:18:00 Test Item Value Reference Range Interpretation Comments WHITE BLOOD CELL COUNT (BANNER) 36.8 K/ L 3.5-10.5 H (test code = 775) RED BLOOD CELL COUNT (BANNER) 3.69 M/ L 3.93-5.22 L (test code = 761) HEMOGLOBIN (BANNER) (test code = 10.2 GM/DL 11.2-15.7 L 410) HEMATOCRIT (BANNER) (test code = 29.5 % 34.1-44.9 L 411) MEAN CORPUSCULAR VOLUME (BANNER) 79.9 fL 79.4-94.8 (test code = 753) MEAN CORPUSCULAR HEMOGLOBIN 27.6 pg 25.6-32.2 (BANNER) (test code = 751) MEAN CORPUSCULAR HEMOGLOBIN CONC 34.6 GM/DL 32.2-35.5 (BEAKER) (test code = 752) RED CELL DISTRIBUTION WIDTH 14.4 % 11.7-14.4 (BEAKER) (test code = 412) PLATELET COUNT (BEAKER) (test 174 K/CU MM 150-450 code = 756) MEAN PLATELET VOLUME (BEAKER) 11.4 fL 9.4-12.3 (test code = 754) NUCLEATED RED BLOOD CELLS 0 /100 WBC 0-0 (BEAKER) (test code = 413) (CELLAVISION MANUAL DIFF)[id number] 07:18:00 Test Item Value Reference Range Interpretation Comments NEUTROPHILS - REL 94 % (CELLAVISION)(BEAKER) (test code = 2816) LYMPHOCYTES - REL 4 % (CELLAVISION)(BEAKER) (test code = 2817) MONOCYTES - REL 1 % (CELLAVISION)(BEAKER) (test code = 2818) BASOPHILS - REL 1 % (CELLAVISION)(BEAKER) (test code = 2820) NEUTROPHILS - ABS 34.59 K/ul 1.56-6.13 H (CELLAVISION)(BEAKER) (test code = 2830) LYMPHOCYTES - ABS 1.47 K/ul 1.18-3.74 (CELLAVISION)(BEAKER) (test code = 2831) MONOCYTES - ABS 0.37 K/uL 0.24-0.36 H (CELLAVISION)(BEAKER) (test code = 2832) BASOPHILS - ABS 0.37 K/uL 0.01-0.08 H (CELLAVISION)(BEAKER) (test code = 2835) TOTAL COUNTED (BEAKER) (test code 100 = 1351) WBC MORPHOLOGY (BEAKER) (test Normal code = 487) PLT MORPHOLOGY (BEAKER) (test Normal code = 486) POLYCHROMATOPHILLIC RBCS(BEAKER) 1+ few (test code = 478) HYPOCHROMIA (BEAKER) (test code = 1+ few 963) CAROLYN CELLS (BEAKER) (test code = 2+ moderate 474) ARTIFACT (CELLAVISION)(BEAKER) Present (test code = 3432) PLATELET CONCENTRATION Adequate (CELLAVISION)(BEAKER) (test code = 3438) Received comment: User comments: Slide comments:FL, [id number] 07:10:00 Reason for exam:->cbd stonesIs the patient ?->NoWhen was patient's last menstrual cycle?->02/04/18INAL REPORT ERCP, 04/06/2018 Clinical History: CBD stones Impression: Intraoperative images are obtained. The radiologist is not present during the procedure. Fluoroscopy was not performed by the undersigned. Images are presented for interpretation at the completion of the procedure. Please refer to the procedure report for more details. A single image demonstrates ERCP in progress. Fluoroscopy time is 49 seconds. Signed: Ally Saldivar MDReport Verified Date/Time: 04/07/2018 0 7:10:55 Reading Location: [facility] C0X Ortho Consult Reading Room BASIC METABOLIC [id number] 06:42:00 Test Item Value Reference Range Interpretation Comments SODIUM (BEAKER) 135 meq/L 136-145 L (test code = 381) POTASSIUM (BEAKER) 3.5 meq/L 3.5-5.1 (test code = 379) CHLORIDE (BEAKER) 104 meq/L 98-107 (test code = 382) CO2 (BEAKER) (test 15 meq/L 22-29 L code = 355) BLOOD UREA NITROGEN 104 mg/dL 7-21 H (BEAKER) (test code = 354) CREATININE (BEAKER) 3.93 mg/dL 0.57-1.25 H (test code = 358) GLUCOSE RANDOM 128 mg/dL 70-105 H (BEAKER) (test code = 652) CALCIUM (BEAKER) 8.1 mg/dL 8.4-10.2 L (test code = 697) EGFR (BEAKER) (test 12 mL/min/1.73 ESTIMA MILAN GFR IS code = 1092) sq m NOT ACCURATE CREATININE CLEARANCE IN PREDICTING GLOMERULAR FILTRATION RATE . ESTIMATED GFR I S NOT APPLICABLE FOR DIALYSIS PATIEN TS. Specimen moderately ictericPOCT-GLUCOSE [id number] 06:15:00 Test Item Value Reference Range Interpretation Comments POC-GLUCOSE METER 125 mg/dL 70-[address] [facility] 6720 (BEAKER) (test code = [place] 1538) [address] [id number] 05:26:00 Test Item Value Reference Range Interpretation Comments AMYLASE (BEAKER) (test code = 349) 19 U/L 25-125 L Specimen moderately [id number] 05:26:00 Test Item Value Reference Range Interpretation Comments LIPASE (BEAKER) (test code = 749) 389 U/L 8-78 H Specimen moderately [id number] 05:25:00 Test Item Value Reference Range Interpretation Comments PHOSPHORUS (BEAKER) (test code = 4.1 mg/dL 2.3-4.7 604) [id number] 05:25:00 Test Item Value Reference Range Interpretation Comments MAGNESIUM (BEAKER) (test code = 2.9 mg/dL 1.6-2.6 H 627) HEPATIC FUNCTION [id number] 05:25:00 Test Item Value Reference Range Interpretation Comments TOTAL PROTEIN (BEAKER) (test code = 5.8 gm/dL 6.0-8.3 L 770) ALBUMIN (BEAKER) (test code = 1145) 2.3 g/dL 3.5-5.0 L BILIRUBIN TOTAL (BEAKER) (test code 5.1 mg/dL 0.2-1.2 H = 377) BILIRUBIN DIRECT (BEAKER) (test 4.1 mg/dL 0.1-0.5 H code = 706) ALKALINE PHOSPHATASE (BEAKER) (test 507 U/L 40-150 H code = 346) AST (SGOT) (BEAKER) (test code = 53 U/L 5-34 H 353) ALT (SGPT) (BEAKER) (test code = 72 U/L 6-55 H 347) Specimen moderately ictericLACTIC ACID, ARTERIAL, WHOLE [id number] 04:30:00 Test Item Value Reference Range Interpretation Comments LACTATE BLOOD ARTERIAL (2) 0.5 mmol/L 0.5-2.2 (BEAKER) (test code = 2874) Effective 10/13/2015: Units/Reference Range ChangeNew: 0.5-2.2 mmol/L Previous: 5- 20 mg/dLSpecimen slightly ictericCALCIUM, [id number] 03:52:00 Test Item Value Reference Range Interpretation Comments CALCIUM IONIZED (BEAKER) (test 1.12 mmol/L 1.12-1.27 code = 698) PH, BLOOD (BEAKER) (test code = 7.34 1810) POCT-GLUCOSE [id number] 23:59:00 Test Item Value Reference Range Interpretation Comments POC-GLUCOSE METER 134 mg/dL 70-[address] [facility] [address] (BEAKER) (test code = [address] [place] 1538) [id number] POCT-GLUCOSE [id number] 18:43:00 Test Item Value Reference Range Interpretation Comments POC-GLUCOSE METER 121 mg/dL 70-[address] [facility] [address] (BEAKER) (test code = ASTON [address] [place] 1538) [id number] BASIC METABOLIC [id number] 17:44:00 Test Item Value Reference Range Interpretation Comments SODIUM (BEAKER) 135 meq/L 136-145 L (test code = 381) POTASSIUM (BEAKER) 3.0 meq/L 3.5-5.1 L (test code = 379) CHLORIDE (BEAKER) 102 meq/L 98-107 (test code = 382) CO2 (BEAKER) (test 18 meq/L 22-29 L code = 355) BLOOD UREA NITROGEN 108 mg/dL 7-21 H (BEAKER) (test code = 354) CREATININE (BEAKER) 4.39 mg/dL 0.57-1.25 H (test code = 358) GLUCOSE RANDOM 99 mg/dL 70-105 (BEAKER) (test code = 652) CALCIUM (BEAKER) 7.8 mg/dL 8.4-10.2 L (test code = 697) EGFR (BEAKER) (test 11 mL/min/1.73 ESTIMA MILAN GFR IS code = 1092) sq m NOT ACCURATE CREATININE CLEARANCE IN PREDICTING GLOMERULAR FILTRATION RATE . ESTIMATED GFR I S NOT APPLICABLE FOR DIALYSIS PATIEN TS. Already called lab to add on.Specimen slightly ictericCBC W/PLT COUNT & AUTO [id number] 16:40:00 Test Item Value Reference Range Interpretation Comments WHITE BLOOD CELL COUNT (BEAKER) 39.4 K/ L 3.5-10.5 H (test code = 775) RED BLOOD CELL COUNT (BEAKER) 3.62 M/ L 3.93-5.22 L (test code = 761) HEMOGLOBIN (BEAKER) (test code = 10.0 GM/DL 11.2-15.7 L 410) HEMATOCRIT (BEAKER) (test code = 29.2 % 34.1-44.9 L 411) MEAN CORPUSCULAR VOLUME (BEAKER) 80.7 fL 79.4-94.8 (test code = 753) MEAN CORPUSCULAR HEMOGLOBIN 27.6 pg 25.6-32.2 (BEAKER) (test code = 751) MEAN CORPUSCULAR HEMOGLOBIN CONC 34.2 GM/DL 32.2-35.5 (BEAKER) (test code = 752) RED CELL DISTRIBUTION WIDTH 14.1 % 11.7-14.4 (BEAKER) (test code = 412) PLATELET COUNT (BEAKER) (test 136 K/CU MM 150-450 L code = 756) MEAN PLATELET VOLUME (BEAKER) 11.4 fL 9.4-12.3 (test code = 754) NUCLEATED RED BLOOD CELLS 0 /100 WBC 0-0 (BEAKER) (test code = 413) (CELLAVISION MANUAL DIFF)[id number] 16:40:00 Test Item Value Reference Range Interpretation Comments NEUTROPHILS - REL 78 % (CELLAVISION)(BEAKER) (test code = 2816) LYMPHOCYTES - REL 2 % (CELLAVISION)(BEAKER) (test code = 2817) MONOCYTES - REL 1 % (CELLAVISION)(BEAKER) (test code = 2818) BANDS - REL (CELLAVISION)(BEAKER) 19 % 0-10 H (test code = 2826) NEUTROPHILS - ABS 30.73 K/ul 1.56-6.13 H (CELLAVISION)(BEAKER) (test code = 2830) LYMPHOCYTES - ABS 0.79 K/ul 1.18-3.74 L (CELLAVISION)(BEAKER) (test code = 2831) MONOCYTES - ABS 0.39 K/uL 0.24-0.36 H (CELLAVISION)(BEAKER) (test code = 2832) BANDS - ABS (CELLAVISION)(BEAKER) 7.49 K/uL 0.00-0.80 H (test code = 2840) TOTAL COUNTED (BEAKER) (test code 100 = 1351) GIANT PLATELETS (BEAKER) (test Present code = 313) VACUOLATED NEUTROPHILS (BEAKER) Present (test code = 483) POIKILOCYTES (BEAKER) (test code 2+ moderate = 966) ELLIPTOCYTES (BEAKER) (test code 1+ few = 962) CAROLYN CELLS (BEAKER) (test code = 1+ few 474) ARTIFACT (CELLAVISION)(BEAKER) Present (test code = 3432) HELMET CELLS 1+ few (CELLAVISION)(BEAKER) (test code = 3434) PLATELET CONCENTRATION Decreased (CELLAVISION)(BEAKER) (test code = 3438) Received comment: User comments: Slide comments:RAD, CHEST, 1 VIEW, NON DEPT 2018-04-06 16:27:00Reason for exam:->Plumonary edemaShould this be performed at the bedside?->YesFINAL REPORT AP chest HISTORY: Edema COMPARISON: None IMPRESSION:Mild interstitial edema. Heart size upper limits of normal. Lungs clear without effusion or pneumothorax. Signed: Ally Saldivar MDReport Verified Date/Time: 04/06/2018 16:27:51 Reading Location: [address] Ortho Consult Reading Room [facility] [id number] 16:16:00 Test Item Value Reference Range Interpretation Comments TROPONIN I (BEAKER) (test code = 0.02 ng/mL 0.00-0.03 397) Troponin I (TnI) levels must be interpreted in the context of the presenting symptoms and the clinical findings. Elevated TnI levels indicate myocardial damage, but are not specific for ischemic heart disease. Elevated TnI levels are seen in patients with other cardiac conditions (including myocarditis and congestive heart failure), and slight TnI elevations occur in patients with other conditions, including sepsis, renal failure, acidosis, acute neurological disease, and persistent tachyarrhythmia.HEPATIC FUNCTION [id number] 16:10:00 Test Item Value Reference Range Interpretation Comments TOTAL PROTEIN (BEAKER) (test code = 5.4 gm/dL 6.0-8.3 L 770) ALBUMIN (BEAKER) (test code = 1145) 2.2 g/dL 3.5-5.0 L BILIRUBIN TOTAL (BEAKER) (test code 5.2 mg/dL 0.2-1.2 H = 377) BILIRUBIN DIRECT (BEAKER) (test 4.1 mg/dL 0.1-0.5 H code = 706) ALKALINE PHOSPHATASE (BEAKER) (test 538 U/L 40-150 H code = 346) AST (SGOT) (BEAKER) (test code = 68 U/L 5-34 H 353) ALT (SGPT) (BEAKER) (test code = 77 U/L 6-55 H 347) Specimen moderately [id number] 16:09:00 Test Item Value Reference Range Interpretation Comments MAGNESIUM (BEAKER) (test code = 1.6 mg/dL 1.6-2.6 627) [id number] 16:09:00 Test Item Value Reference Range Interpretation Comments AMYLASE (BEAKER) (test code = 349) 17 U/L 25-125 L Specimen moderately [id number] 16:09:00 Test Item Value Reference Range Interpretation Comments LIPASE (BEAKER) (test code = 749) 12 U/L 8-78 Specimen moderately [id number] 16:09:00 Test Item Value Reference Range Interpretation Comments PHOSPHORUS (BEAKER) (test code = 2.7 mg/dL 2.3-4.7 604) LACTIC ACID, VENOUS, WHOLE [id number] 16:06:00 Test Item Value Reference Range Interpretation Comments LACTATE BLOOD VENOUS (2) (BEAKER) 1.1 mmol/L 0.5-2.2 (test code = 2872) Effective 10/13/2015: Units/Reference Range ChangeNew: 0.5-2.2 mmol/L Previous: 5- 20 mg/dLSpecimen slightly ictericPROTHROMBIN TIME/[id number] 16:04:00 Test Item Value Reference Range Interpretation Comments PROTIME (BEAKER) (test code = 15.5 seconds 11.7-14.7 H 759) INR (BEAKER) (test code = 370) 1.2 <=5.9 RECOMMENDED COUMADIN/WARFARIN INR THERAPY RANGESSTANDARD DOSE: 2.0 - 3.0 Includes: PROPHYLAXIS for venous thrombosis, systemic embolization; TREATMENT for venous thrombosis and/or pulmonary embolus.HIGH RISK: Target INR is 2.5-3.5 for patients with mechanical heart valves.[id number] 16:04:00 Test Item Value Reference Range Interpretation Comments FIBRINOGEN LEVEL (BEAKER) (test 596 mg/dl 225-434 H code = 658) [id number] 16:04:00 Test Item Value Reference Range Interpretation Comments PARTIAL THROMBOPLASTIN TIME 28.6 seconds 22.5-36.0 (BEAKER) (test code = 760) URINALYSIS W/ [id number] 15:59:00 Test Item Value Reference Range Interpretation Comments COLOR (BEAKER) (test code = 470) Yellow CLARITY (BEAKER) (test code = Hazy 469) SPECIFIC GRAVITY UA (BEAKER) 1.007 1.001-1.035 (test code = 468) PH UA (BEAKER) (test code = 467) 5.0 5.0-8.0 PROTEIN UA (BEAKER) (test code = 10 mg/dL Negative A 464) GLUCOSE UA (BEAKER) (test code = Negative Negative 365) KETONES UA (BEAKER) (test code = Negative Negative 371) BILIRUBIN UA (BEAKER) (test code Negative Negative = 462) BLOOD UA (BEAKER) (test code = Small Negative A 461) NITRITE UA (BEAKER) (test code = Negative Negative 465) LEUKOCYTE ESTERASE UA (BEAKER) Trace Negative A (test code = 466) UROBILINOGEN UA (BEAKER) (test 0.2 mg/dL 0.2-1.0 code = 463) RBC UA (BEAKER) (test code = 5 /HPF 519) WBC UA (BEAKER) (test code = 6 /HPF 520) BACTERIA (BEAKER) (test code = Occasional 517) SOURCE(BEAKER) (test code = Urine, Franz 9801)
[2022-08-28] MEDS ORDERED: ONDANSETRON 4 MG/2 ML VIAL ONE (14:33)
[2022-08-28] MEDS ORDERED: Ringers Lactate 1,000 ML IV ONE (14:33)
[2022-08-28 14:51] LABS: Absolute Lymphocytes (CBC) 1.3 K/uL (0.7-4.9); Hematocrit 40.5 % (36.0-45.0); Lymphocytes % 34.6 % (15.3-44.8); MCV 85.5 fL (80-100); MPV 7.9 fL (7.6-11.3); RBC Red Blood Cell Count 4.74 M/uL (3.86-4.86)
[2022-08-28 15:01] LABS: Albumin 3.6 g/dL (3.4-5.0); Bilirubin Total 0.6 mg/dL (0.2-1.0); Potassium 3.8 mEq/L (3.5-5.1); Protein, Total 7.8 g/dL (6.4-8.2)
[2022-08-28 15:21] LABS: SARS-COV-2 RT PCR POSITIVE (NEGATIVE)
--- NOTE | 2022-08-28 16:36 | ER ---
Nurse's Notes [facility] Name: Monica Anglin Age: 56 yrs Sex: Female : 1965 Arrival Date: 08/28/2022 Time: 13:34 Bed 4 Private MD: Diagnosis: Coronavirus infection, unspecified Presentation: 08/28 14:00 Chief complaint: Pt's mother states "she hasn't been feeling well, she's been having aa5 diarrhea and she vomited twice, she's also had some fever". 14:00 Coronavirus screen: diarrhea, fever. Ebola Screen: Patient denies travel to an aa5 Ebola-affected area in the 21 days before illness onset. Initial Sepsis Screen: Does the patient meet any 2 criteria? HR > 90 bpm. Does the patient have a suspected source of infection? No. Patient's initial sepsis screen is negative. Risk Assessment: Do you want to hurt yourself or someone else? Patient reports no desire to harm self or others. Onset of symptoms was August 2022. 14:00 Acuity: SUMMER 3 aa5 14:00 Method Of Arrival: Ambulatory aa5 Historical: - Allergies: 14:00 No Known Allergies; aa5 - PMHx: 14:01 developmental delay; Hypertension; aa5 14:04 thyroid problem; aa5 - PSHx: 14:01 Cholecystectomy; aa5 - Immunization history:: Adult Immunizations unknown. - Social history:: Smoking status: Patient denies any tobacco usage or history of. Screenin:45 [facility] ED Fall Risk Assessment (Adult) History of falling in the last 3 months, vg1 including since admission No falls in past 3 months (0 pts) Confusion or Disorientation No (0 pts) Intoxicated or Sedated No (0 pts) Impaired Gait No (0 pts) Mobility Assist Device Used No (0 pt) Altered Elimination No (0 pt) Score/Fall Risk Level 0 - 2 = Low Risk Oriented to surroundings, Maintained a safe environment, Educated pt \\T\\ family on fall prevention, incl call for assistance when getting out of bed, Assessed \\T\\ reinforced patient's understanding of fall precautions. Abuse screen: Denies threats or abuse. Denies injuries from another. Nutritional screening: No deficits noted. Tuberculosis screening: No symptoms or risk factors identified. Assessment: 14:30 General: Appears in no apparent distress. uncomfortable, Behavior is calm, cooperative. vg1 Pain: Denies pain. Neuro: Level of Consciousness is awake, alert, obeys commands, Oriented to person, place, time, situation. Cardiovascular: Patient's skin is warm and dry. Respiratory: Airway is patent Respiratory effort is even, unlabored. GI: Abdomen is round non-distended, obese, Reports diarrhea, since today, Vomited once yesterday. : No signs and/or symptoms were reported regarding the genitourinary system. EENT: No signs and/or symptoms were reported regarding the EENT system. Derm: Skin is pink, warm \\T\\ dry. Musculoskeletal: Circulation, motion, and sensation intact. 15:54 Reassessment: Patient appears in no apparent distress at this time. Patient and/or vg1 family updated on plan of care and expected duration. Pain level reassessed. Patient is alert, oriented x 3, equal unlabored respirations, skin warm/dry/pink. 17:12 Reassessment: Patient appears in no apparent distress at this time. Patient and/or vg1 family updated on plan of care and expected duration. Pain level reassessed. Patient is alert, oriented x 3, equal unlabored respirations, skin warm/dry/pink. Patient denies pain at this time. Patient states feeling better. Vital Signs: 14:00 BP 112 / 83; Pulse 109; Resp 16 S; Temp 98(O); Pulse Ox 98% on R/A; Weight 120.2 kg aa5 (R); Height 5 ft. 6 in. (R); 14:45 BP 125 / 68; Pulse 104; Resp 16; Temp 98.8; Pulse Ox 99% on R/A; vg1 15:30 BP 119 / 91; Pulse 100; Resp 18; Pulse Ox 97% on R/A; vg1 16:30 BP 126 / 76; Pulse 99; Resp 16; Pulse Ox 97% on R/A; vg1 14:00 Body Mass Index 42.77 (120.20 kg, 167.64 cm) aa5 ED Course: 13:34 Patient arrived in ED. rg4 13:37 [facility] 13:37 Kalpesh Dutton MD is Attending Physician. [facility] 14:00 Arm band placed on. aa5 14:03 Triage completed. aa5 14:22 Evelyn Cortes, RN is Primary Nurse. vg1 14:45 Patient has correct armband on for positive identification. Bed in low position. Call vg1 light in reach. Side rails up X2. Adult w/ patient. 14:45 No provider procedures requiring assistance completed. Inserted saline lock: 20 gauge vg1 in left antecubital area, using aseptic technique. ,using aseptic technique. COMPLETED BY ED STAFF. 17:13 IV discontinued, intact, bleeding controlled, No redness/swelling at site. Pressure vg1 dressing applied. Administered Medications: 14:25 Not Given (Duplicate Order): Ondansetron IVP 4 mg IVP once; over 2 minutes [facility] 14:42 Drug: Ondansetron IVP 4 mg Route: IVP; Site: left antecubital; vg1 15:55 Follow up: Response: No adverse reaction; Marked relief of symptoms vg1 14:42 Drug: Lactated Ringers Solution IV 1000 ml Route: IV; Rate: 1000 ml/hr; Site: left vg1 antecubital; 15:55 Follow up: IV Status: Completed infusion; IV Intake: 1000ml vg1 Medication: 14:45 VIS not applicable for this client. vg1 Intake: 15:55 IV: 1000ml; Total: 1000ml. vg1 Outcome: 16:36 Discharge ordered by . [facility] 17:13 Discharged to home ambulatory, with family. vg1 17:13 Condition: good 17:13 Discharge instructions given to patient, family, Instructed on discharge instructions, follow up and referral plans. medication usage, Demonstrated understanding of instructions, follow-up care, medications, Prescriptions given X 1. 17:13 Patient left the ED. vg1 Signatures: Gallito Silva PA PA jmm Calderon, Audri, RN RN Kiki Maldonado4 Evelyn Cortes, RN RN vg1
--- NOTE | 2022-08-28 16:37 | EDPHYS ---
Physician Documentation [facility] Name: Monica Anglin Age: 56 yrs Sex: Female : 1965 Arrival Date: 08/28/2022 Time: 13:34 Bed 4 Private MD: ED Physician Kalpesh Dutton HPI: 08/28 13:36 This 56 yrs old Female presents to ER via Ambulatory with complaints of jmm Vomiting/Diarrhea. 13:36 The patient presents to the emergency department with vomiting, diarrhea. Onset: The jmm symptoms/episode began/occurred gradually, 1 week(s) ago. Possible causes: covid. The symptoms are aggravated by nothing. The symptoms are alleviated by nothing. Associated signs and symptoms: Pertinent positives: fever. The patient has experienced similar episodes in the past. Historical: - Allergies: 14:00 No Known Allergies; aa5 - PMHx: 14:01 developmental delay; Hypertension; aa5 14:04 thyroid problem; aa5 - PSHx: 14:01 Cholecystectomy; aa5 - Immunization history:: Adult Immunizations unknown. - Social history:: Smoking status: Patient denies any tobacco usage or history of. ROS: 13:36 Constitutional: Positive for body aches, malaise. jmm 13:36 Respiratory: Positive for cough. 13:36 Abdomen/GI: Positive for nausea and vomiting, diarrhea. 13:36 All other systems are negative. Exam: 13:36 Constitutional: This is a well developed, well nourished patient who is awake, alert, jmm and in no acute distress. Head/Face: atraumatic. Eyes: EOMI, no conjunctival erythema appreciated ENT: Moist Mucus Membranes Neck: Trachea midline, Supple Chest/axilla: Normal chest wall appearance and motion. Cardiovascular: Regular rate and rhythm. No edema appreciated Respiratory: Normal respirations, no respiratory distress appreciated Abdomen/GI: Non distended Back: Normal ROM Skin: General appearance color normal MS/ Extremity: Moves all extremities, no obvious deformities appreciated, no edema noted to the lower extremities Neuro: Awake and alert Psych: Behavior is normal, Mood is normal, Patient is cooperative and pleasant Vital Signs: 14:00 BP 112 / 83; Pulse 109; Resp 16 S; Temp 98(O); Pulse Ox 98% on R/A; Weight 120.2 kg aa5 (R); Height 5 ft. 6 in. (R); 14:45 BP 125 / 68; Pulse 104; Resp 16; Temp 98.8; Pulse Ox 99% on R/A; vg1 15:30 BP 119 / 91; Pulse 100; Resp 18; Pulse Ox 97% on R/A; vg1 16:30 BP 126 / 76; Pulse 99; Resp 16; Pulse Ox 97% on R/A; vg1 14:00 Body Mass Index 42.77 (120.20 kg, 167.64 cm) aa5 MDM: 13:36 Patient medically screened. bs3 17:32 Differential diagnosis:. Data reviewed: vital signs, nurses notes, lab test result(s). [facility] I considered the following discharge prescriptions or medication management in the emergency department Medications were administered in the Emergency Department. See MAR. Historians other than the Patient: family. Counseling: I had a detailed discussion with the patient and/or guardian regarding: the historical points, exam findings, and any diagnostic results supporting the discharge/admit diagnosis, lab results, the need for outpatient follow up, to return to the emergency department if symptoms worsen or persist or if there are any questions or concerns that arise at home. 08/28 13:59 Order name: CBC with Diff; Complete Time: 14:57 [facility] 08/28 13:59 Order name: CMP; Complete Time: 15:03 [facility] 08/28 13:59 Order name: Lipase; Complete Time: 15:03 [facility] 08/28 14:00 Order name: COVID-19/FLU A+B; Complete Time: 15:21 [facility] 08/28 13:59 Order name: IV Saline Lock; Complete Time: 14:49 [facility] 08/28 13:59 Order name: Labs collected and sent; Complete Time: 14:49 [facility] Administered Medications: 14:25 Not Given (Duplicate Order): Ondansetron IVP 4 mg IVP once; over [address] [facility] 14:42 Drug: Ondansetron IVP 4 mg Route: IVP; Site: left antecubital; 1 15:55 Follow up: Response: No adverse reaction; Marked relief of symptoms [facility] 14:42 Drug: Lactated Ringers Solution IV 1000 ml Route: IV; Rate: 1000 ml/hr; Site: left vg1 antecubital; 15:55 Follow up: IV Status: Completed infusion; IV Intake: 1000ml vg1 Disposition Summary: 08/28/22 16:36 Discharge Ordered Location: Home [facility] Condition: Stable [facility] Diagnosis - Coronavirus infection, unspecified [facility] Followup: [facility] - With: Private Physician - When: 2 - 3 days - Reason: Recheck today's complaints, Continuance of care, Re-evaluation by your physician Discharge Instructions: - Discharge Summary Sheet [facility] - COVID-19 [facility] Forms: - Medication Reconciliation Form [facility] - Thank You Letter [facility] - Antibiotic Education [facility] - Prescription Opioid Use [facility] Prescriptions: - ondansetron 4 mg Oral Tablet,disintegrating - take 1 tablet by ORAL route every 4-6 hours As needed; 20 tablet; Refills: 0, [facility] Product Selection Permitted Signatures: Dispatcher [employer] Gallito Simpson PA PA jmm Calderon, Audri, RN RN aa5 Evelyn Cortes RN RN vg1 Kalpesh Dutton MD MD bs3
[2022-08-28 19:49] VITALS: TEMP 98.8
[2022-08-28 19:51] VITALS: O2SAT 97
[2022-08-28 19:52] VITALS: BP 126/76
== END 2022-08-28 17:13 | disposition home or self-care (01) ==
LOC: ER 13:29
DX: U07.1 COVID-19 (principal); I10 Essential (primary) hypertension
CPT/HCPCS: 85025; 36415; 83690; 80053; 0240U; J2405; J7120

== ENCOUNTER 2023-02-21 11:00 | Emergency (ER) | payer OTHER ==
--- OUTSIDE RECORDS SUMMARY | 2023-02-21 11:09 | XMS REPORT | Continuity of Care Document ---
:1965 Author Organization [facility] t Address [address] [facility] [address] [place] [address] Care Team Providers Name Role Phone Harshal Garner MD Primary Care Physician [phone] Mario Rios Attending Clinician Unavailable Julia Durham Attending Clinician Unavailable Nely WOODSON Attending Clinician Unavailable Ap Sanchez Attending Clinician Unavailable Anel Gray Attending Clinician Unavailable VICK EDWARDS Attending Clinician Unavailable JENNIFER MILTON Attending Clinician Unavailable VICK EDWARDS Admitting Clinician Unavailable JENNIFER MILTON Admitting Clinician Unavailable Payers Payer Name Policy Type Policy Number Effective Date Expiration Date S jamel [employer] C1 [id number] Common Sp yeyo ing Medicare [facility] Cigna-HealthSpr C1 [id number] Common Sp yeyo ing Medicare - [facility] Replace [facility] Cigna-HealthSpr C1 [id number] Common Sp yeyo ing Medicare - [facility] Replace [facility] Cigna[employer]HealthSpr C1 [id number] Common Sp yeyo ing Medicare - [facility] Replace [facility] Cigna[employer]HealthSpr C1 [id number] Common Sp yeyo ing Medicare - [facility] Replace [facility] Problems Condition Condition Condition Status Onset Resolution Last Treating Co mments Source Name Details Category Date Date Treatment Clinician Date Hypokalemi Hypokalemi Disease Active 2017-[address] [facility] 0-31 [facility] Acute Acute Disease Active 2017-[address] [facility] [address] blood loss blood loss 0-31 Kalyn kes anemia anemia 00:00: Medical 00 [place] Leukocytos Leukocytos Disease Active 2017-[address] is is 0-31 [facility] 00 [place] Acute Acute Disease Active 2017-[address] [facility] [address] cholecysti cholecysti 0-27 Kalyn kes tis tis 00:00: Medical 00 [place] Septic Septic Disease Active 2017-[address] shock shock 0-27 [facility] 00[facility] 00 [place] FRANCA (acute FRANCA (acute Disease Active 2017-[address] kidney kidney 0-27 [facility] injury) injury) 00:00: Medical 00 [place] Serum TSH Abnormal Problem Comm on level TSH Spirit abnormal [facility] [id number] Acquired Problem Comm on hypothyroi Spirit dism [facility] [id number] Discolorat Problem Co mmon ion of Spirit skin of [facility] lower leg [facility] [id number] Peripheral Problem Co mmon edema [facility] [id number] Environmen Problem Co mmon elise Spirit allergies [facility] [id number] Depression Problem Co mmon with Spirit anxiety [facility] Mental Mental Problem Common retardatio retardatio Sp yeyo n n [facility] [id number] Essential Problem Comm on hypertensi Spirit on [facility] [id number] Morbid Problem Common (severe) [facility] obesity - [facility] due to [facility] Choledocho Choledocho Disease Active C HI St lithiasis lithiasis Luke s with acute with acute Me dical cholecysti cholecysti Ce nter tis tis Cholangiti Cholangiti Disease Active C HI [facility] Allergies, Adverse Reactions, Alerts This patient has no known allergies or adverse reactions. Family History Family Member Diagnosis Comments Start Date Stop Date Source Maternal uncle Arthritis [facility] Natural mother Hypertension [facility] Paternal grandmother COPD [facility] Natural sister Cancer [facility] Natural sister Pancreatitis [facility] Natural father Hypertension [facility] Social History Social Habit Start Date Stop Date Quantity Comments Source History of Tobacco [facility] - Use [facility] Gender identity [facility] Sexual orientation [facility] History [facility] Alcohol Std Drinks [facility] Binge Medical T[facility] Alcohol intake 2018-11-28 2018-11-[address] [facility] [address] Tali es 00:00:00 00:00:00 non-drinker of Medical Ce nter alcohol (finding) Tobacco use and 2018-04-06 2018-04-06 [facility] kes exposure 00:00:00 00:00:00 tobacco non-user Medical Center History SDOH 2018-04-06 2018-04-[address] [facility] [address] kes Alcohol Frequency 00:00:00 [facility]:00:[facility] Sex Assigned At [birth year] [facility] kes 00:00:00 [facility] Smoking Status Start Date Stop Date Source Tobacco smoking consumption [facility] unknown Never Smoker [facility] Spirit - [facility] Medications Ordered Filled Start Stop Current Ordering Indication Dosage Frequency Signature Comments Components Source Medication Medication Date Date Medication? Clinician (SIG) Name Name Levothyroxi Levothyroxi No QD Levothyrox ne Sodium ne Sodium 6-23 ine Sodium 25 MCG 25 MCG 00:00: 25 MCG 00 lisinopril- Yes 1{tbl} QD Take [address] hydroCHLORO 6-20 tablet by Tali es thiazide 10:45: mouth Medical ([facility], 31 every Center ESTORETIC) morning . 10-12.5 mg per tablet TURMERIC Yes QD Take by [facility] ORAL 6-20 mouth [facility] 10:45: daily. [address] lisinopril- Yes 1{tbl} QD Take [address] hydroCHLORO 6-20 tablet by Tali es thiazide 10:45: mouth Medical (PRINZIDE,Z 31 every Center ESTORETIC) morning . 10-12.5 mg per tablet TURMERIC Yes QD Take by [facility] ORAL 6-20 mouth [facility] 10:45: daily. [address] Lisinopril- Lisinopril- Yes Anel 1/2 tablet Common Hydrochloro Hydrochloro Mill[facility] Spirit thiazide thiazide - [facility] ZyrTE No 1{table QD ZyrTEC Allergy 10 Allergy [...] MG Nystatin Nystatin No 1{appli BID Nystatin 946611 160943 cation_ 527657 UNIT/GM UNIT/GM to_affe UNIT/GM cted_ar ea} [facility] QD ZyrTEC Allergy 10 Allergy [...] MCG Nystatin Nystatin No 1{appli BID Nystatin 414219 226692 cation_ 804135 UNIT/GM UNIT/GM to_affe UNIT/GM cted_ar ea} Hydrocortis [...] MG Nystatin Nystatin No 1{appli BID Nystatin 966624 412773 cation_ 120389 UNIT/GM UNIT/GM to_affe UNIT/GM cted_ar ea} Hydrocortis [...] MG Nystatin Nystatin No 1{appli BID Nystatin 902189 093361 cation_ 813108 UNIT/GM UNIT/GM to_affe UNIT/GM cted_ar ea} Hydrocortis [...] MG Nystatin Nystatin No 1{appli BID Nystatin 289823 762887 cation_ 205826 UNIT/GM UNIT/GM to_affe UNIT/GM cted_ar ea} Hydrocortis [...] MG Nystatin Nystatin No 1{appli BID Nystatin 961462 363736 cation_ 471208 UNIT/GM UNIT/GM to_affe UNIT/GM cted_ar ea} Immunizations Ordered Immunization Filled Immunization Date Status Commen ts Source Name Name Flucelvax - single Flucelvax - single 2022-04-06 Completed [facility] dose syringe dose syringe 14:38:00 - [facility] Flucelvax - single Flucelvax - single 2022-04-06 Completed [facility] dose syringe dose syringe 14:38:00 - [facility] Flucelvax - single Flucelvax - single 2022-04-06 Completed [facility] dose syringe dose syringe 14:38:00 - [facility] Flucelvax - single Flucelvax - single 2022-04-06 Completed [facility] dose syringe dose syringe 14:38:00 - [facility] Flucelvax - single Flucelvax - single 2022-04-06 Completed [facility] dose syringe dose syringe 14:38:00 - [facility] Flucelvax - single Flucelvax - single 2022-04-06 Completed [facility] dose syringe dose syringe 14:38:00 - [facility] Afluria Afluria 2021-03-31 Completed [facility] 15:48:00 - [facility] Afluria Afluria 2021-03-31 Completed [facility] 15:48:00 - [facility] Afluria Afluria 2021-03-31 Completed [facility] 15:48:00 - [facility] Afluria Afluria 2021-03-31 Completed [facility] 15:48:00 - [facility] Afluria Afluria 2021-03-31 Completed [facility] 15:48:00 - [facility] Afluria Afluria 2021-03-31 Completed [facility] 15:48:00 - [facility] Afluria Afluria 2021-03-31 Completed [facility] 15:48:00 - [facility] Afluria Afluria 2021-03-31 Completed [facility] 15:48:00 - [facility] Afluria Afluria 2021-03-31 Completed [facility] 15:48:00 - [facility] Afluria Afluria 2021-03-31 Completed [facility] 15:48:00 - [facility] Afluria Afluria 2021-03-31 Completed [facility] 15:48:00 - [facility] Afluria Afluria 2021-03-31 Completed [facility] 15:48:00 - [facility] Afluria Afluria 2021-03-31 Completed [facility] 15:48:00 - [facility] Flucelvax - single Flucelvax - single 2020-03-04 Completed [facility] dose syringe dose syringe 15:31:00 - [facility] Flucelvax - single Flucelvax - single 2020-03-04 Completed [facility] dose syringe dose syringe 15:31:00 - [facility] Flucelvax - single Flucelvax - single 2020-03-04 Completed [facility] dose syringe dose syringe 15:31:00 - [facility] Flucelvax - single Flucelvax - single 2020-03-04 Completed [facility] dose syringe dose syringe 15:31:00 - [facility] Flucelvax - single Flucelvax - single 2020-03-04 Completed [facility] dose syringe dose syringe 15:31:00 - [facility] Flucelvax - single Flucelvax - single 2020-03-04 Completed [facility] dose syringe dose syringe 15:31:00 - [facility] Flucelvax - single Flucelvax - single 2020-03-04 Completed [facility] dose syringe dose syringe 15:31:00 - [facility] Flucelvax - single Flucelvax - single 2020-03-04 Completed [facility] dose syringe dose syringe 15:31:00 - [facility] Flucelvax - single Flucelvax - single 2020-03-04 Completed [facility] dose syringe dose syringe 15:31:00 - [facility] Flucelvax - single Flucelvax - single 2020-03-04 Completed [facility] dose syringe dose syringe 15:31:00 - [facility] Flucelvax - single Flucelvax - single 2020-03-04 Completed [facility] dose syringe dose syringe 15:31:00 - [facility] Flucelvax - single Flucelvax - single 2020-03-04 Completed [facility] dose syringe dose syringe 15:31:00 - [facility] Flucelvax - single Flucelvax - single 2020-03-04 Completed [facility] dose syringe dose syringe 15:31:00 - [facility] Flucelvax - single Flucelvax - single 2020-03-04 Completed [facility] dose syringe dose syringe 15:31:00 - [facility] Flucelvax - single Flucelvax - single 2020-03-04 Completed [facility] dose syringe dose syringe 15:31:00 - [facility] Flucelvax - single Flucelvax - single 2020-03-04 Completed [facility] dose syringe dose syringe 15:31:00 - [facility] Fluzone Fluzone 2018-03-20 Completed [facility] 10:28:00 - [facility] Fluzone Fluzone 2018-03-20 Completed [facility] 10:28:00 - [facility] Fluzone Fluzone 2018-03-20 Completed [facility] 10:: - [facility] Fluzone Fluzone 2018-03-20 Completed [facility] 10:: - [facility] Fluzone Fluzone 2018-03-20 Completed [facility] 10:: - [facility] Fluzone Fluzone 2018-03-20 Completed [facility] 10:: - [facility] Fluzone Fluzone 2018-03-20 Completed [facility] 10:: - [facility] Fluzone Fluzone 2018-03-20 Completed [facility] 10:: - [facility] Fluzone Fluzone 2018-03-20 Completed [facility] 10:: - [facility] Fluzone Fluzone 2018-03-20 Completed [facility] 10:: - [facility] Fluzone Fluzone 2018-03-20 Completed [facility] 10:: - [facility] Fluzone Fluzone 2018-03-20 Completed [facility] 10:: - [facility] Fluzone Fluzone 2018-03-20 Completed [facility] 10:: - [facility] Fluzone Fluzone 2018-03-20 Completed [facility] 10:: - [facility] Fluzone Fluzone 2018-03-20 Completed [facility] 10:: - [facility] Fluzone Fluzone 2018-03-20 Completed [facility] 10:: - [facility] Vital Signs Vital Name Observation Time Observation Value Comments Source height 2022-04-06 13:00:00 64.50 [in_i] [facility] weight 2022-04-06 13:00:00 327 [lb_av] [facility] temperature 2022-04-06 13:00:00 97.4 [degF] [facility] bmi 2022-04-06 13:00:00 55.26 kg/m2 Common [facility] oximetry 2022-04-06 13:00:00 100 % Common [facility] respiratory rate 2022-04-06 13:00:00 16 /min Comm on [facility] blood pressure 2022-04-06 13:00:00 133 mm[Hg] Common [facility] - systolic [facility] blood pressure 2022-04-06 13:00:00 67 mm[Hg] Common [facility] - diastolic [facility] height 2022-04-06 13:20:00 64.50 [in_i] Common S [facility] weight 2022-04-06 13:20:00 327 [lb_av] [facility] temperature 2022-04-06 13:20:00 97.4 [degF] Common S [facility] bmi 2022-04-06 13:20:00 55.26 kg/m2 [facility] oximetry 2022-04-06 13:20:00 100 % [facility] respiratory rate 2022-04-06 13:20:00 16 /min Comm on [facility] blood pressure 2022-04-06 13:20:00 133 mm[Hg] Common [facility] - systolic [facility] blood pressure 2022-04-06 13:20:00 67 mm[Hg] Common [facility] - diastolic [facility] height 2021-10-03 11:20:00 67 [in_i] Common S [facility] weight 2021-10-03 11:20:00 328.8 [lb_av] Common [facility] temperature 2021-10-03 11:20:00 97.8 [degF] Common S [facility] bmi 2021-10-03 11:20:00 51.49 kg/m2 Common [facility] oximetry 2021-10-03 11:20:00 97 % Common S [facility] respiratory rate 2021-10-03 11:20:00 16 /min Comm on [facility] blood pressure 2021-10-03 11:20:00 117 mm[Hg] Common [facility] - systolic [facility] blood pressure 2021-10-03 11:20:00 65 mm[Hg] Common [facility] - diastolic [facility] height 2021-07-04 10:00:00 67 [in_i] Common S [facility] weight 2021-07-04 10:00:00 314 [lb_av] Common S [facility] temperature 2021-07-04 10:00:00 97.7 [degF] Common [facility] bmi 2021-07-04 10:00:00 49.17 kg/m2 [facility] oximetry 2021-07-04 10:00:00 100 % [facility] respiratory rate 2021-07-04 10:00:00 16 /min Comm on [facility] blood pressure 2021-07-04 10:00:00 122 mm[Hg] Common [facility] - systolic [facility] blood pressure 2021-07-04 10:00:00 70 mm[Hg] Common [facility] - diastolic [facility] height 2021-03-31 13:40:00 67 [in_i] Common [facility] weight 2021-03-31 13:40:00 273 [lb_av] Common S pirit [facility] temperature 2021-03-31 13:40:00 97.8 [degF] [facility] bmi 2021-03-31 13:40:00 42.75 kg/m2 Common S [facility] oximetry 2021-03-31 13:40:00 100 % [facility] respiratory rate 2021-03-31 13:40:00 18 /min Comm on [facility] blood pressure 2021-03-31 13:40:00 130 mm[Hg] Common [facility] - systolic [facility] blood pressure 2021-03-31 13:40:00 80 mm[Hg] [facility] - diastolic [facility] Procedures This patient has no known procedures. Plan of Care Planned Activity Planned Date Details Comments Source Future Scheduled 2023-02-14 [facility] Test 06:15:41 malignant neoplasm of cervix (procedure) [code = 390615794] Future Scheduled 2023-02-14 BREAST CANCER [facility] Test 06:15:41 SCREENING [code = BREAST CANCER SCREENING] Future Scheduled 2023-02-14 [facility] Test 06:15:41 malignant neoplasm of colon (procedure) [code = 055158842] Future Scheduled 2023-02-14 [facility] Test 06:15:41 malignant neoplasm of colon (procedure) [code = 344179191] Future Scheduled 2023-02-14 SHINGLES VACCINES ([facility] 06:15:41 of 2) [code = SHINGLES VACCINES (1 of 2)] Future Scheduled 2023-02-14 INFLUENZA VACCINE [facility] Test 06:15:41 (#1) [code = INFLUENZA VACCINE (#1)] Future Scheduled 2023-02-14 [facility] Test 06:15:41 malignant neoplasm of colon (procedure) [code = 143145899] Future Scheduled 2023-02-14 [facility] Test 06:15:41 malignant neoplasm of colon (procedure) [code = 589228686] Future Scheduled 2023-02-14 [facility] Test 06:15:41 malignant neoplasm of colon (procedure) [code = 062667024] Future Scheduled 2023-02-14 COVID-19 VACCINE (#1) [facility] Test 06:15:41 [code = COVID-19 VACCINE (#1)] Future Scheduled 2022-08-28 COVID-19 VACCINE (#1) [facility] Test 13:31:58 [code = COVID-19 VACCINE (#1)] Future Scheduled 2022-08-28 Screening for [facility] Test 13:31:58 malignant neoplasm of cervix (procedure) [code = 207287890] Future Scheduled 2022-08-28 BREAST CANCER [facility] Test 13:31:58 SCREENING [code = BREAST CANCER SCREENING] Future Scheduled 2022-08-28 COLONOSCOPY SCREENING [facility] Test 13:31:58 [code = COLONOSCOPY SCREENING] Future Scheduled 2022-08-28 SHINGLES VACCINES (1 Met [facility] Test 13:31:58 of 2) [code = SHINGLES VACCINES (1 of 2)] Future Scheduled 2022-08-28 INFLUENZA VACCINE Method [facility] Test 13:31:58 [code = INFLUENZA VACCINE] Encounters Start End Encounter Admission Attending Care Care Encounter Source Date/Time Date/Time Type Type Clinicians Facility Department ID 2022-11-15 Outpatient Rios, STLMLC STLMLC [id number] Common 10:05:00 [facility] [address] [facility] 2022-11-14 Outpatient Rios, STLMLC STLMLC [id number] Common 10:53:01 [facility] [address] [facility] 2022-10-30 Outpatient Rios, STLMLC STLMLC [id number] Common 08:57:01 [facility] [address] [facility] 2022-10-04 Outpatient Marva, STLMLC STLMLC [id number] Common 16:15:00 Julia [address] [facility] 2022-06-19 Outpatient WOODSON, Na STLMLC STLMLC [id number] Common 15:48:01 [address] [facility] 2022-05-10 Outpatient Woodson, Na STLMLC STLMLC [id number] Common 15:31:00 [address] [facility] 2022-04-04 Outpatient Woodson, Na STLMLC STLMLC [id number] Common 15:24:01 [facility] 2021-10-03 Outpatient Woodson, Na STLMLC STLMLC [id number] Common 10:56:01 [facility] 2021-07-06 Outpatient Woodson, Na STLMLC STLMLC [id number] Common 14:39:13 [facility] 2021-07-06 Outpatient Woodson, Na STLMLC STLMLC [id number] Common 14:02:10 [facility] 2021-07-06 Outpatient Woodson, Na STLMLC STLMLC [id number] Common 13:53:22 [address] [facility] 2021-07-06 Outpatient Woodson, Na STLMLC STLMLC [id number] Common 13:46:37 [address] [facility] 2021-07-06 Outpatient Woodson, Na STLMLC STLMLC [id number] Common 13:45:31 [address] [facility] 2021-07-06 Outpatient Woodson, Na STLMLC STLMLC [id number] Common 12:44:11 [address] [facility] 2021-07-06 Outpatient STLMLC STLMLC [id number] Common 12:23:12 [address] [facility] 2021-07-06 Outpatient Daniel, Kin STLMLC STLMLC [id number] Common 12:08:17 [address] [facility] 2021-07-06 Outpatient Millender, STLMLC STLMLC [id number] Common 11:48:16 Anel [address] [facility] 2021-07-06 Outpatient Millender, STLMLC STLMLC [id number] Common 11:13:29 Anel [address] [facility] 2022-06-19 2022-06-19 (TEL) STLMLC STLMLC [id number] Co mmon 00:00:00 00:00:00 [facility] 2022-05-11 2022-05-11 OL DIG E/M STLMLC STLMLC [id number] Common 00:00:00 00:00:00 C 11-20 Spir it [facility] 2022-05-10 2022-05-10 (TEL) STLMLC STLMLC [id number] Co mmon 00:00:00 00:00:00 [facility] 2022-04-19 2022-04-19 (TEL) STLMLC STLMLC [id number] Co mmon 00:00:00 00:00:00 [facility] 2022-04-06 2022-04-06 SUB ANNUAL STLMLC STLMLC [id number] Common 00:00:00 00:00:00 MCR [facility] WELLNESS - CHI VISIT [facility] 2022-04-06 2022-04-06 OFFICE STLMLC STLMLC [id number] Co mmon 00:00:00 00:00:00 VISIT EST Spir it PT LEVEL 3 - CHI [facility] 2021-11-30 2021-11-30 (TEL) STLMLC STLMLC [id number] Co mmon 00:00:00 00:00:00 Spirit - [facility]I [facility] 2021-10-03 2021-10-03 OFFICE STLMLC STLMLC [id number] Co mmon 00:00:00 00:00:00 VISIT Spirit ESTAB PT - CHI LEVEL 4 [facility] 2021-07-04 2021-07-04 OFFICE STLMLC STLMLC [id number] Co mmon 00:00:00 00:00:00 VISIT [facility] ESTAB PT - CHI LEVEL 4 [facility] 2021-06-23 2021-06-23 (TEL) STLMLC STLMLC [id number] Co mmon 00:00:00 00:00:00 [facility] 2021-06-09 2021-06-09 (TEL) STLMLC STLMLC [id number] Co mmon 00:00:00 00:00:00 [facility] 2021-04-01 2021-04-01 (TEL) STLMLC STLMLC [id number] Co mmon 00:00:00 00:00:00 Spirit [facility]I [facility] 2021-03-31 2021-03-31 OFFICE STLMLC STLMLC [id number] Co mmon 00:00:00 00:00:00 VISIT Spirit ESTAB PT - CHI LEVEL 4 [facility] 2021-03-15 2021-03-15 (TEL) STLMLC STLMLC [id number] Co mmon 00:00:00 00:00:00 [facility] CHI [facility] 2021-03-04 2021-03-04 (TEL) STLMLC STLMLC [id number] Co mmon 00:00:00 00:00:00 [facility] 2021-02-16 2021-02-16 OL DIG E/M STLMLC STLMLC [id number] Common 00:00:00 00:00:00 C 11-20 Spir it [facility] 2020 2020 Outpatient STLMLC STLMLC [id number] Common 00:00:00 00:00:00 [facility] 2020-09-20 2020-09-20 Outpatient STLMLC STLMLC [id number] Common 00:00:00 00:00:00 [facility] 2020-09-02 2020-09-02 Outpatient STLMLC STLMLC [id number] Common 00:00:00 00:00:00 [facility] 2020-09-02 2020-09-02 Outpatient STLMLC STLMLC [id number] Common 00:00:00 00:00:00 [facility] 2020-03-04 2020-03-04 Outpatient STLMLC STLMLC [id number] Common 00:00:00 00:00:00 [facility] 2019-09-19 2019-09-19 [facility] [id number] Common 14:35:00 14:35:00 [facility] [address] [facility] 2019-08-29 2019-08-29 [facility] [id number] Common 09:33:00 09:33:00 [facility] it [facility] 2019-08-25 2019-08-25 [facility] [id number] Common 09:45:00 09:45:00 [facility] [address] [facility] Results Test Description Test Time Test Comments Results Result Sour e Comments [place], ERCP 2018-11-28 Reason for FINAL REPORT PATIENT 10:06:00 exam:->Biliary ID: [id number] Obstruction Intraoperative fluoroscopy. CLINICAL HISTORY: Biliary Obstruction. FINDINGS: Five fluoroscopically acquired images were acquired by the referring physician. An intraoperative verbal report was not requested. Fluoroscopy was not performed by the undersigned. Fluoroscopy time: 5.5 minutes. Five images. Signed: Crow [place] Verified Date/Time: 11/28/2018 10:06:37 Reading Location: [facility] B1 C013Y CT Body Reading Room UE EXAM 2018-08-19 Surgical Pathology 12:44:00 Report Case: [id number] Authorizing Provider: Vick Edwards MD Collected: 08/15/2018 1308 Ordering Location: [facility] Endoscopy Received: 08/15/2018 1618 Services Pathologist: Mac Coates MD Specimen: Common Bile Duct, DISTAL CBD SPY BITE COMMON BILE DUCT BIOPSY- EROSION WITH SEVERE ACUTE AND CHRONIC INFLAMMATION- GRANULATION TISSUE WITH REACTIVE CHANGES- CARCINOMA NOT IDENTIFIED Signing Pathologist Direct Phone Line: [phone] abraham signed by Mac Coates MD on 08/19/2018 at 12:44 [id number], gastrointestinal tract imaging abnormality Distal common bile duct SpyBite biopsyThe specimen is received in a formalin-filled container labeled with the patient's information and labeled "distal common bile duct SpyBite biopsy" and consists of three fragments of red soft tissue ranging from 0.1 to 0.3 cm, submitted entirely in A1. CG/ew Performed CYTOLOGY 2018-08-16 Medical Cytology 18:30:00 Report Case: [id number] Authorizing Provider: Vick Edwards MD Collected: 08/15/2018 1309 Ordering Location: [facility] Endoscopy Received: 08/15/2018 1400 Services Pathologist: Rosaura Bañuelos MD Specimen: Common Bile Duct, CBD aspirate COMMON BILE DUCT ASPIRATE (CYTOSPINS AND CELL BLOCK): - NEGATIVE FOR MALIGNANCY PREDOMINANTLY BILE AND FILAMENTOUS BACTERIA Signing Pathologist Direct Phone Line: [phone] abraham signed by Rosaura Bañuelos MD on 08/16/2018 at 6:30 [id number], [id number], bile duct disorderCOMMON BILE DUCT ASPIRATEPrepared cell block(A2) using collodion bag and 4 cytospins from 8 mls light brown fluidCollected: [id number]: [id number], [facility] of [facility]ology, [address] [place] [address], [facility], Department of Pathology, [address] [place] [address], [facility] [place], [facility] of [facility], [address] [place] [address], CYTOLOGY REQUEST 2018-08-15 15:01:00 Test Item Value Reference Range Interpretation Comme nts CYTOLOGY RESULT POINTER (BENYLA) (test code = 2629) See Separate Re port OR, [id number] 13:44:00Reason for exam:->jaundice,abnormal imagingFINAL REPORT TECHNIQUE: Fluoroscopic images from endoscopic retrograde cholangiopancreatography. INDICATION: 52-year-old woman with jaundice. COMPARISON: ERCP 04/12/2018. IMPRESSION:Fluoroscopic images from endoscopic retrograde cholangiopancreatography, not obtained by the undersigned. Please refer to endoscopy note for more details of the procedure and findings. Fluoroscopy time: 2.3 minutesNumber of images: 5 Signed: Christen Rodriguez MDReport Verified Date/Time: 08/15/2018 13:44:36 Reading Location: [address] Radiology Reading Room FUNGUS CULTURE + [id number] 17:09:00 Test Item Value Reference Range Interpretation Comments CULTURE (BEAKER) A <1+ Same or ganism has (test code = been isolated f rom 1095) culture(s) of t he same body site and collection date . Repeat identification performed only after consultation wi the clinical microb iology laboratory.Refe r to previous cultur e ofCandida dubli niensis FUNGUS SMEAR No fungi seen (BEAKER) (test code = 1406) OR, [id number] 09:34:00Reason for exam:->bile duct stonesIs the patient ?->N/AWhen was patient's last menstrual cycle?->03/19/18 FLUOROSCOPIC UNIT UTILIZED-NO INTERPRETATION REQUESTED. ANAEROBIC CULTURE 2018-04-23 04:15:00 Test Item Value Reference Range Interpretation Comments CULTURE (BEAKER) (test No anaerobes isolated code = 1095) SURGICALLY OBTAINED CULTURE + GRAM [id number] 09:47:00 Test Item Value Reference Interpretation Comments [...] = 47) GRAM STAIN RESULT 1+ WBCs (BEAKER) (test code = 1123) GRAM STAIN RESULT No organisms seen (BEAKER) (test code = 927571) POCT-GLUCOSE [id number] 07:47:00 Test Item Value Reference Range Interpretation Comments POC-GLUCOSE METER 92 mg/dL 70-110 TESTED AT [facility] 6720 (BEAKER) (test code = [place] [facility] [place] [address] 1538) COMPREHENSIVE METABOLIC [id number] 07:04:00 Test Item Value Reference Range Interpretation [...] S NOT APPLICABLE FOR DIALYSIS PATIEN TS. [id number] 06:58:00 Test Item Value Reference Range Interpretation Comments PHOSPHORUS (BEAKER) (test code = 3.7 mg/dL 2.3-4.7 604) [id number] 06:58:00 Test Item Value Reference Range Interpretation Comments MAGNESIUM (BEAKER) (test code = 1.3 mg/dL 1.6-2.6 L 627) CALCIUM, [id number] 05:43:00 Test Item Value Reference Range Interpretation Comments CALCIUM IONIZED (BEAKER) (test 1.02 mmol/L 1.12-1.27 L code = 698) PH, BLOOD (BEAKER) (test code = 7.42 1810) CBC W/PLT COUNT & AUTO [id number] 05:12:00 Test Item Value Reference Range Interpretation [...] PERCENT (BEAKER) (test code = 2801) POCT-GLUCOSE [id number] 12:49:00 Test Item Value Reference Range Interpretation Comments POC-GLUCOSE METER 128 mg/dL 70-110 H TESTED AT [facility] 6720 (BEAKER) (test code = [place] 1538) [address] COMPREHENSIVE METABOLIC [id number] 08:36:00 Test Item Value Reference Range Interpretation [...] S NOT APPLICABLE FOR DIALYSIS PATIEN TS. [id number] 08:26:00 Test Item Value Reference Range Interpretation Comments PHOSPHORUS (BEAKER) (test code = 3.5 mg/dL 2.3-4.7 604) [id number] 08:26:00 Test Item Value Reference Range Interpretation Comments MAGNESIUM (BEAKER) (test code = 1.5 mg/dL 1.6-2.6 L 627) POCT-GLUCOSE [id number] 07:29:00 Test Item Value Reference Range Interpretation Comments POC-GLUCOSE METER 100 mg/dL 70-110 TESTED AT [facility] 6720 (BEAKER) (test code = [place] 1538) [address] CALCIUM, [id number] 06:47:00 Test Item Value Reference Range Interpretation Comments CALCIUM IONIZED (BEAKER) (test 1.00 mmol/L 1.12-1.27 L code = 698) PH, BLOOD (BEAKER) (test code = 7.49 1810) CBC W/PLT COUNT & AUTO [id number] 05:40:00 Test Item Value Reference Range Interpretation [...] 0-1 PERCENT (BEAKER) (test code = 2801) TISSUE [id number] 15:05:00Surgical Pathology Report Case: [id number] Authorizing Provider: Linh Thomas MD Collected: 04/16/2018 1252 Ordering Location: [facility] PERIOPERATIVE Received: 04/16/2018 1320 SERVICES Pathologist: Alejandro Mendes MD Specimen: Gallbladder GALLBLADDER, CHOLECYSTECTOMY: - ACUTE AND CHRONIC CHOLECYSTITIS, WITH XANTHOGRANULOMATOUS FEATURES (SEE COMMENT) - CHOLELITHIASIS Signing Pathologist Direct Phone Line: [phone] signed by Alejandro Mendes MD on 04/19/2018 [...] findings are supportive of the above diagnosis. 16689, 53496 x 3, 89773Ynlvelyh of gallbladder without cholecystitis without obstructionGallbladder The specimen is received in formalin-filled container and labeled with the patient's information and labeled "gallbladder" consists of a ragged distorted open segment of gallbladder measuring 5.5 x 2 cm, gallbladder wall thickness up to 0.8 cm. Orientation is not available. The margin is not grossly identifiable. Mucosa is luis-red, ragged. No distinctmasses are identified. Washtub Worker Helper sections of the gallbladder wall submitted A1 and A2. Cross sections of the gallbladder wall show areas of necrosis. In the container are multiple fragments of yellow faceted stones measuring up to 0.2 cm. Washtub Worker Helper sections are submitted A1 through A4. CG/plPerformedThe interpretation of this case included the use of immunohistochemistry or special stains.Please see comment for special stain results.POCT-GLUCOSE [id number] 12:19:00 Test Item Value Reference Range Interpretation Comments POC-GLUCOSE METER 85 mg/dL 70-110 TESTED AT [facility] 6720 (BEAKER) (test code = [facility] [address] 1538) POCT-GLUCOSE [id number] 07:39:00 Test Item Value Reference Range Interpretation Comments POC-GLUCOSE METER 102 mg/dL 70-110 [facility] 67[facility] (test code = [facility] 1538) [address] BASIC METABOLIC [id number] 07:27:00 Test Item Value Reference Range Interpretation [...] S NOT APPLICABLE FOR DIALYSIS PATIEN TS. [id number] 07:16:00 Test Item Value Reference Range Interpretation Comments PHOSPHORUS (BEAKER) (test code = 3.2 mg/dL 2.3-4.7 604) [id number] 07:16:00 Test Item Value Reference Range Interpretation Comments MAGNESIUM (BEAKER) (test code = 1.7 mg/dL 1.6-2.6 627) CALCIUM, [id number] 06:53:00 Test Item Value Reference Range Interpretation Comments CALCIUM IONIZED (BEAKER) (test 1.00 mmol/L 1.12-1.27 L code = 698) PH, BLOOD (BEAKER) (test code = 7.40 1810) CBC W/PLT COUNT & AUTO [id number] 06:27:00 Test Item Value Reference Range Interpretation [...] PERCENT (BEAKER) (test code = 2801) POCT-GLUCOSE [id number] 23:35:00 Test Item Value Reference Range Interpretation Comments POC-GLUCOSE METER 148 mg/dL 70-110 H [facility] (test code = [facility] 1538) [address] POCT-GLUCOSE [id number] 11:40:00 Test Item Value Reference Range Interpretation Comments POC-GLUCOSE METER 121 mg/dL 70-110 H TESTED AT [place] [address] ([facility] (test code = [facility] 1538) [address] POCT-GLUCOSE [id number] 08:25:00 Test Item Value Reference Range Interpretation Comments POC-GLUCOSE METER 114 mg/dL 70-110 H TESTED AT [place] [address] [facility] (test code = [facility] 1538) [address] COMPREHENSIVE METABOLIC [id number] 06:37:00 Test Item Value Reference Range Interpretation [...] NOT APPLICABLE FOR DIALYSIS PATIEN TS. CALCIUM, [id number] 06:36:00 Test Item Value Reference Range Interpretation Comments CALCIUM IONIZED (BEAKER) (test 0.93 mmol/L 1.12-1.27 L code = 698) PH, BLOOD (BEAKER) (test code = 7.46 1810) [id number] 06:24:00 Test Item Value Reference Range Interpretation Comments PHOSPHORUS (BEAKER) (test code = 3.0 mg/dL 2.3-4.7 604) [id number] 06:24:00 Test Item Value Reference Range Interpretation Comments MAGNESIUM (BEAKER) (test code = 1.3 mg/dL 1.6-2.6 L 627) CBC W/PLT COUNT & AUTO [id number] 06:22:00 Test Item Value Reference Range Interpretation [...] PERCENT (BEAKER) (test code = 2801) POCT-GLUCOSE [id number] 11:52:00 Test Item Value Reference Range Interpretation Comments POC-GLUCOSE METER 122 mg/dL 70-110 H TESTED AT [facility] 6720 (BEAKER) (test code = [place] 1538) [address] COMPREHENSIVE METABOLIC [id number] 10:35:00 Test Item Value Reference Range Interpretation [...] S NOT APPLICABLE FOR DIALYSIS PATIEN TS. [id number] 10:21:00 Test Item Value Reference Range Interpretation Comments PHOSPHORUS (BEAKER) (test code = 2.8 mg/dL 2.3-4.7 604) [id number] 10:21:00 Test Item Value Reference Range Interpretation [...] 0-0 (BEAKER) (test code = 413) CALCIUM, [id number] 06:57:00 Test Item Value Reference Range Interpretation Comments CALCIUM IONIZED (BEAKER) (test 0.89 mmol/L 1.12-1.27 L code = 698) PH, BLOOD (BEAKER) (test code = 7.41 1810) CBC W/PLT COUNT & AUTO [id number] 00:49:00 Test Item Value Reference Range Interpretation [...] 0-1 PERCENT (BEAKER) (test code = 2801) [id number] 00:40:00 Test Item Value Reference Range Interpretation Comments MAGNESIUM (BEAKER) (test code = 1.0 mg/dL 1.6-2.6 LL 627) [id number] 00:23:00 Test Item Value Reference Range Interpretation Comments PHOSPHORUS (BEAKER) (test code = 3.2 mg/dL 2.3-4.7 604) [id number] 00:23:00 Test Item Value Reference Range Interpretation Comments AMYLASE (BEAKER) (test code = 349) 23 U/L 25-125 L CBC W/PLT COUNT & AUTO [id number] 15:50:00 Test Item Value Reference Range Interpretation [...] PERCENT (BEAKER) (test code = 2801) FL, BINDING PRINTER IN OR/30 MINUTE [id number] 13:52:00Reason for exam:- >Intraop CholangiogramFINAL REPORT Fluoroscopy 12 views intraoperative 04/16/2018 1:51 PM CLINICAL HISTORY: Instrument localization COMPARISON: None available IMPRESSION: Please correlate imaging report findings with the procedure note prepared by Dr. Thomas, as an intra-procedure imaging consultation was not requested. Reported fluoroscopy time: 74.8 seconds. Signed: Eric Feliciano Verified Date/Time: 04/16/2018 13:52:50 Reading Location: [facility] Radiology Reading Room HCG, QUANTITATIVE, [id number] 09:10:00 Test Item Value Reference Range Interpretation Comments GONADOTROPIN, CHORIONIC (HCG) QUANT < mIU/mL 0-10 ([facility]) (test code = 649) Non- Females: <10 mIU/mL Females: Gestation Age Reference Range(mIU/mL) 0.2-1 Week 5-50 1-2 Weeks 50-500 2-3 Weeks 100-5,000 3-4 Weeks 500-10,000 4-5 Weeks 1,000-50,000 5-6 Weeks 10,000-100,000 6-8 Weeks 15,000- 200,000 2-3 Months 10,000-100,000POCT-GLUCOSE [id number] 07:43:00 Test Item Value Reference Range Interpretation Comments POC-GLUCOSE METER 82 mg/dL 70-110 TESTED AT [facility] 6720 ([facility]) ([facility] = [facility] [place] [address] 1538) CALCIUM, [id number] 07:06:00 Test Item Value Reference Range Interpretation Comments CALCIUM IONIZED ([facility]) (test 0.95 mmol/L 1.12-1.27 L code = 698) PH, BLOOD ([facility]) (test code = 7.46 1810) COMPREHENSIVE METABOLIC [id number] 06:40:00 Test Item Value Reference Range Interpretation Comments TOTAL PROTEIN 5.5 gm/dL 6.0-8.3 L ([facility]) (test code = 770) ALBUMIN ([facility]) 2.4 g/dL 3.5-5.0 L (test code = [...] S NOT APPLICABLE FOR DIALYSIS PATIEN TS. [id number] 06:38:00 Test Item Value Reference Range Interpretation Comments PHOSPHORUS (BEAKER) (test code = 3.2 mg/dL 2.3-4.7 604) [id number] 06:38:00 Test Item Value Reference Range Interpretation Comments MAGNESIUM (BEAKER) (test code = 1.5 mg/dL 1.6-2.6 L 627) HEPATIC FUNCTION [id number] 06:38:00 Test Item Value Reference Range Interpretation [...] (test code = 16 U/L 6-55 347) [id number] 06:38:00 Test Item Value Reference Range Interpretation Comments AMYLASE (BEAKER) (test code = 349) 34 U/L 25-125 [id number] 06:38:00 Test Item Value Reference Range Interpretation Comments LIPASE (BEAKER) (test code = 749) 28 U/L 8-78 CBC W/PLT COUNT & AUTO [id number] 06:22:00 Test Item Value Reference Range Interpretation [...] PERCENT (BEAKER) (test code = 2801) CT, [id number] 16:48:00FINAL REPORT CT of the abdomen and [...] cm left adrenal nodule. Signed: Kristyn Parker MDReport Verified Date/Time: 04/15/2018 16:48:33 Reading Location: [address] Consult Reading Room C METABOLIC [id number] 07:45:00 Test Item Value Reference Range Interpretation [...] S NOT APPLICABLE FOR DIALYSIS PATIEN TS. [id number] 07:31:00 Test Item Value Reference Range Interpretation Comments PHOSPHORUS (BEAKER) (test code = 3.0 mg/dL 2.3-4.7 604) [id number] 07:31:00 Test Item Value Reference Range Interpretation Comments MAGNESIUM (BEAKER) (test code = 1.2 mg/dL 1.6-2.6 L 627) HEPATIC FUNCTION [id number] 07:31:00 Test Item Value Reference Range Interpretation [...] (test code = 17 U/L 6-55 347) [id number] 07:31:00 Test Item Value Reference Range Interpretation Comments AMYLASE (BEAKER) (test code = 349) 34 U/L 25-125 [id number] 07:31:00 Test Item Value Reference Range Interpretation Comments LIPASE (BEAKER) (test code = 749) 32 U/L 8-78 CALCIUM, [id number] 07:21:00 Test Item Value Reference Range Interpretation Comments CALCIUM IONIZED (BEAKER) (test 0.95 mmol/L 1.12-1.27 L code = 698) PH, BLOOD (BEAKER) (test code = 7.44 1810) PROTHROMBIN [id number] 07:13:00 Test Item Value Reference Range Interpretation Comments PROTIME (BEAKER) (test code = 15.0 seconds 11.7-14.7 H 759) INR (BEAKER) (test code = 370) 1.2 <=5.9 RECOMMENDED COUMADIN/WARFARIN INR THERAPY RANGESSTANDARD DOSE: 2.0 - 3.0 Includes: PROPHYLAXIS for venous thrombosis, systemic embolization; TREATMENT for venous thrombosis and/or pulmonary embolus.HIGH RISK: Target INR is 2.5-3.5 for patients with mechanical heart valves.[id number] 07:13:00 Test Item Value Reference Range Interpretation Comments PARTIAL THROMBOPLASTIN TIME 27.7 seconds 22.5-36.0 (BEAKER) (test code = 760) CBC W/PLT COUNT & AUTO [id number] 07:04:00 Test Item Value Reference Range Interpretation [...] (BEAKER) (test code = 2801) C. DIFFICILE [facility] [id number] 16:38:00 Test Item Value Reference Range Interpretation Comments CDT TOXIN (test code Negative Negative = 5880345967) CDT GDH ANTIGEN (test Negative Negative No ind ication of code = 6908965320) Clostridi um difficile infection and n o colonization. Discontinue ent germaine isolation and t herapy. Testing performed by [employer] Rapid Cassette Assay. For GDH, published sensitivity of the assay is 98.7% compared to cytotoxicity testing. For Toxin AB, published sensitivity is 87.8% and specificity 99.4% compared to cytotoxicity testing.Verification of kit performance was done by the [facility] prior to clinical use.POCT-GLUCOSE [id number] 08:49:00 Test Item Value Reference Range Interpretation Comments POC-GLUCOSE METER 97 mg/dL 70-110 TESTED AT [facility] 6720 (BEAKER) (test code = [place] [address] 1538) IRON, TIBC, % SAT. (WITHOUT FERRITIN)2018-04-14 07:51:00 Test Item Value Reference Range Interpretation Comments IRON (BEAKER) (test code = 547) 94 ug/dL 40-160 TOTAL IRON BINDING CAPACITY 188 ug/dL 250-450 L (AKER) (test code = 769) IRON % SATURATION (2) (BEAKER) 50 % 20-55 (test code = 2590) [id number] 07:34:00 Test Item Value Reference Range Interpretation Comments FERRITIN (BEAKER) (test code = 361) 591 ng/mL 5-275 H CALCIUM, [id number] 07:23:00 Test Item Value Reference Range Interpretation Comments CALCIUM IONIZED (BEAKER) (test 0.98 mmol/L 1.12-1.27 L code = 698) PH, BLOOD (AKER) (test code = 7.43 1810) COMPREHENSIVE METABOLIC [id number] 07:06:00 Test Item Value Reference Range Interpretation Comments TOTAL PROTEIN 5.3 gm/dL 6.0-8.3 L (AKER) (test code = 770) ALBUMIN (BEAKER) 2.3 [...] S NOT APPLICABLE FOR DIALYSIS PATIEN TS. [id number] 06:49:00 Test Item Value Reference Range Interpretation Comments PHOSPHORUS (BEAKER) (test code = 2.9 mg/dL 2.3-4.7 604) [id number] 06:49:00 Test Item Value Reference Range Interpretation Comments MAGNESIUM (BEAKER) (test code = 1.1 mg/dL 1.6-2.6 L 627) HEPATIC FUNCTION [id number] 06:49:00 Test Item Value Reference Range Interpretation [...] (test code = 20 U/L 6-55 347) [id number] 06:49:00 Test Item Value Reference Range Interpretation Comments AMYLASE (BEAKER) (test code = 349) 50 U/L 25-125 [id number] 06:49:00 Test Item Value Reference Range Interpretation Comments LIPASE (BEAKER) (test code = 749) 33 U/L 8-78 CBC W/PLT COUNT & AUTO [id number] 05:59:00 Test Item Value Reference Range Interpretation [...] = 2801) CBC W/PLT COUNT & AUTO [id number] 05:57:00 Test Item Value Reference Range Interpretation [...] PERCENT (BEAKER) (test code = 2801) POCT-GLUCOSE [id number] 21:44:00 Test Item Value Reference Range Interpretation Comments POC-GLUCOSE METER 100 mg/dL 70-110 TESTED AT [place] [address] ([facility]) (test code = [facility] 1538) [address] POCT-GLUCOSE [id number] 18:42:00 Test Item Value Reference Range Interpretation Comments POC-GLUCOSE METER 100 mg/dL 70-110 TESTED AT [place] [address] ([facility]) (test code = [facility] 1538) [address] POCT-GLUCOSE [id number] 12:28:00 Test Item Value Reference Range Interpretation Comments POC-GLUCOSE METER 123 mg/dL 70-110 H TESTED AT [place] [address] ([facility]) (test code = [facility] 1538) [address] POCT-GLUCOSE [id number] 09:13:00 Test Item Value Reference Range Interpretation Comments POC-GLUCOSE METER 130 mg/dL 70-110 H TESTED AT [place] [address] ([facility]) (test code = [facility] 1538) [address] CALCIUM, [id number] 07:28:00 Test Item Value Reference Range Interpretation Comments CALCIUM IONIZED ([facility]) (test 0.97 mmol/L 1.12-1.27 L code = 698) PH, BLOOD (BEAKER) (test code = 7.47 1810) BASIC METABOLIC [id number] 07:25:00 Test Item Value Reference Range Interpretation [...] S NOT APPLICABLE FOR DIALYSIS PATIEN TS. [id number] 07:12:00 Test Item Value Reference Range Interpretation Comments PHOSPHORUS (BEAKER) (test code = 3.2 mg/dL 2.3-4.7 604) [id number] 07:12:00 Test Item Value Reference Range Interpretation Comments MAGNESIUM (BEAKER) (test code = 1.2 mg/dL 1.6-2.6 L 627) HEPATIC FUNCTION [id number] 07:12:00 Test Item Value Reference Range Interpretation [...] (test code = 28 U/L 6-55 347) [id number] 07:12:00 Test Item Value Reference Range Interpretation Comments AMYLASE (BEAKER) (test code = 349) 37 U/L 25-125 [id number] 07:12:00 Test Item Value Reference Range Interpretation Comments LIPASE (BEAKER) (test code = 749) 33 U/L 8-78 CBC W/PLT COUNT & AUTO [id number] 06:38:00 Test Item Value Reference Range Interpretation [...] IMMATURE GRANULOCYTES-RELATIVE 2 % 0-1 H PERCENT (BEAKER) (test code = 2801) POCT-GLUCOSE [id number] 22:27:00 Test Item Value Reference Range Interpretation Comments POC-GLUCOSE METER 98 mg/dL 70-110 TESTED AT [facility] 6720 ([facility]) (test code = [facility] [address] 1538) POCT-GLUCOSE [id number] 18:26:00 Test Item Value Reference Range Interpretation Comments POC-GLUCOSE METER 107 mg/dL 70-110 TESTED AT [place] [address] ([facility]) (test code = [facility] 1538) [address] [place], [id number] 17:29:00INTRA OP IMAGINGReason for exam:->CBD STONESFINAL REPORT [...] static images were acquired. Signed: Carlene Pierre Verified Date/Time: 04/12/2018 17:29:25 Reading Location: [address] Consult Reading Room POCT-GLUCOSE [id number] 13:58:00 Test Item Value Reference Range Interpretation Comments POC-GLUCOSE METER 105 mg/dL 70-110 TESTED AT [place] [address] ([facility]) (test code = [place] 1538) [address] COMPREHENSIVE METABOLIC [id number] 08:36:00 Test Item Value Reference Range Interpretation [...] NOT APPLICABLE FOR DIALYSIS PATIEN TS. POCT-GLUCOSE [id number] 07:57:00 Test Item Value Reference Range Interpretation Comments POC-GLUCOSE METER 97 mg/dL 70-110 TESTED AT [facility] 6720 (BEAKER) (test code = [place] [address] 1538) [id number] 07:53:00 Test Item Value Reference Range Interpretation Comments PHOSPHORUS (BEAKER) (test code = 3.4 mg/dL 2.3-4.7 604) [id number] 07:53:00 Test Item Value Reference Range Interpretation Comments MAGNESIUM (BEAKER) (test code = 1.5 mg/dL 1.6-2.6 L 627) HEPATIC FUNCTION [id number] 07:53:00 Test Item Value Reference Range Interpretation [...] (test code = 34 U/L 6-55 347) [id number] 07:53:00 Test Item Value Reference Range Interpretation Comments AMYLASE (BEAKER) (test code = 349) 39 U/L 25-125 [id number] 07:53:00 Test Item Value Reference Range Interpretation Comments LIPASE (BEAKER) (test code = 749) 35 U/L 8-78 CBC W/PLT COUNT & AUTO [id number] 07:29:00 Test Item Value Reference Range Interpretation [...] PERCENT (BEAKER) (test code = 2801) CALCIUM, [id number] 07:25:00 Test Item Value Reference Range Interpretation Comments CALCIUM IONIZED (BEAKER) (test 0.98 mmol/L 1.12-1.27 L code = 698) PH, BLOOD (BEAKER) (test code = 7.44 1810) POCT-GLUCOSE [id number] 06:44:00 Test Item Value Reference Range Interpretation Comments POC-GLUCOSE METER 99 mg/dL 70-110 TESTED AT [place] [address] (BEAKER) (test code = [place] [facility] [place] [address] 1538) POCT-GLUCOSE [id number] 18:41:00 Test Item Value Reference Range Interpretation Comments POC-GLUCOSE METER 121 mg/dL 70-110 H TESTED AT [place] [address] (BEAKER) ([facility] = [facility] [place] 1538) [address] BLOOD [id number] 18:00:00 Test Item Value Reference Range Interpretation Comments CULTURE (BEAKER) (test No growth in 5 days code = 1095) BLOOD [id number] 18:00:00 Test Item Value Reference Range Interpretation Comments CULTURE (BEAKER) (test No growth in 5 days code = 1095) POCT-GLUCOSE [id number] 14:17:00 Test Item Value Reference Range Interpretation Comments POC-GLUCOSE METER 116 mg/dL 70-110 H TESTED AT [place] [address] (BEAKER) (test code = [facility] 1538) [address] POCT-GLUCOSE [id number] 08:52:00 Test Item Value Reference Range Interpretation Comments POC-GLUCOSE METER 90 mg/dL 70-110 TESTED AT [place] [address] (BEAKER) (test code = [facility] [address] 1538) BASIC METABOLIC [id number] 07:40:00 Test Item Value Reference Range Interpretation [...] S NOT APPLICABLE FOR DIALYSIS PATIEN TS. [id number] 07:37:00 Test Item Value Reference Range Interpretation Comments PHOSPHORUS (BEAKER) (test code = 4.9 mg/dL 2.3-4.7 H 604) [id number] 07:37:00 Test Item Value Reference Range Interpretation Comments MAGNESIUM (BEAKER) (test code = 1.8 mg/dL 1.6-2.6 627) HEPATIC FUNCTION [id number] 07:37:00 Test Item Value Reference Range Interpretation [...] (test code = 38 U/L 6-55 347) [id number] 07:37:00 Test Item Value Reference Range Interpretation Comments AMYLASE (BEAKER) (test code = 349) 52 U/L 25-125 [id number] 07:37:00 Test Item Value Reference Range Interpretation Comments LIPASE (BEAKER) (test code = 749) 42 U/L 8-78 CBC W/PLT COUNT & AUTO [id number] 06:42:00 Test Item Value Reference Range Interpretation [...] PERCENT (BEAKER) (test code = 2801) CALCIUM, [id number] 06:36:00 Test Item Value Reference Range Interpretation Comments CALCIUM IONIZED (BEAKER) (test 1.01 mmol/L 1.12-1.27 L code = 698) PH, BLOOD (BEAKER) (test code = 7.45 1810) POCT-GLUCOSE [id number] 23:47:00 Test Item Value Reference Range Interpretation Comments POC-GLUCOSE METER 85 mg/dL 70-110 TESTED AT [place] [address] ([facility]) ([facility] = [facility] [place] [address] 1538) POCT-GLUCOSE [id number] 17:38:00 Test Item Value Reference Range Interpretation Comments POC-GLUCOSE METER 119 mg/dL 70-110 H TESTED AT [place] [address] ([facility]) (test code = [facility] 1538) [address] POCT-GLUCOSE [id number] 12:41:00 Test Item Value Reference Range Interpretation Comments POC-GLUCOSE METER 123 mg/dL 70-110 H TESTED AT [place] [address] ([facility]) (test code = [facility] 1538) [address] POCT-GLUCOSE [id number] 08:12:00 Test Item Value Reference Range Interpretation Comments POC-GLUCOSE METER 103 mg/dL 70-110 TESTED AT [place] [address] ([facility]) (test code = [facility] 1538) [address] CBC W/PLT COUNT & AUTO [id number] 05:34:00 Test Item Value Reference Range Interpretation [...] 0-1 H PERCENT (BEAKER) (test code = 2802) BASIC METABOLIC [id number] 05:21:00 Test Item Value Reference Range Interpretation [...] APPLICABLE FOR DIALYSIS PATIEN TS. COMPREHENSIVE METABOLIC [id number] 05:21:00 Test Item Value Reference Range Interpretation [...] NOT APPLICABLE FOR DIALYSIS PATIEN TS. CALCIUM, [id number] 05:19:00 Test Item Value Reference Range Interpretation Comments CALCIUM IONIZED (BEAKER) (test 0.99 mmol/L 1.12-1.27 L code = 698) PH, BLOOD (BEAKER) (test code = 7.34 1810) [id number] 05:19:00 Test Item Value Reference Range Interpretation Comments MAGNESIUM (BEAKER) 2.3 mg/dL 1.6-2.6 Specimen slightly (test code = 627) hemolyzed [id number] 05:19:00 Test Item Value Reference Range Interpretation Comments PHOSPHORUS (BEAKER) 5.5 mg/dL 2.3-4.7 H Specimen slightly (test code = 604) hemolyzed HEPATIC FUNCTION [id number] 05:19:00 Test Item Value Reference Range Interpretation [...] Specimen slightly (test code = 347) hemolyzed [id number] 05:19:00 Test Item Value Reference Range Interpretation Comments AMYLASE (BEAKER) (test 119 U/L 25-125 Speci men slightly code = 349) hemolyzed [id number] 05:19:00 Test Item Value Reference Range Interpretation Comments LIPASE (BEAKER) (test code = 749) 126 U/L 8-78 H POCT-GLUCOSE [id number] 18:37:00 Test Item Value Reference Range Interpretation Comments POC-GLUCOSE METER 141 mg/dL 70-110 H TESTED AT [facility] 67[facility] (BEAKER) (test code = [place] 1538) [address] SODIUM, RANDOM [id number] 15:29:00 Test Item Value Reference Range Interpretation Comments SODIUM URINE (BEAKER) (test code = < meq/L 243) Reference Range: No NormalsCREATININE, RANDOM [id number] 15:26:00 Test Item Value Reference Range Interpretation Comments CREATININE URINE (BEAKER) (test 59.5 mg/dL code = 375) Reference Range: No [id number] 13:32:00 Test Item Value Reference Range Interpretation Comments POTASSIUM (BEAKER) 3.9 meq/L 3.5-5.1 Specimen slightly (test code = 379) hemolyzed Check Serum Potassium level 2 hours after oral potassium replacement completed or 30 min after intravenous potassium replacement.POCT-GLUCOSE [id number] 12:21:00 Test Item Value Reference Range Interpretation Comments POC-GLUCOSE METER 156 mg/dL 70-110 H [facility] (test code = [place] 1538) [address] CBC W/PLT COUNT & AUTO [id number] 09:22:00 Test Item Value Reference Range Interpretation [...] PERCENT (BEAKER) (test code = 2801) POCT-GLUCOSE [id number] 08:18:00 Test Item Value Reference Range Interpretation Comments POC-GLUCOSE METER 144 mg/dL 70-110 H TEST[facility] [place] [address] [facility] (test code = [facility] 1538) [address] POCT-GLUCOSE [id number] 06:20:00 Test Item Value Reference Range Interpretation Comments POC-GLUCOSE METER 153 mg/dL 70-110 H TEST[facility] [place] [address] [facility] (test code = [facility] 1538) [address] CALCIUM, [id number] 05:45:00 Test Item Value Reference Range Interpretation Comments CALCIUM IONIZED (BEAKER) (test 0.99 mmol/L 1.12-1.27 L code = 698) PH, BLOOD (BEAKER) (test code = 7.43 1810) [id number] 04:55:00 Test Item Value Reference Range Interpretation Comments PHOSPHORUS (BEAKER) (test code = 5.4 mg/dL 2.3-4.7 H 604) [id number] 04:55:00 Test Item Value Reference Range Interpretation Comments MAGNESIUM (BEAKER) (test code = 2.3 mg/dL 1.6-2.6 627) HEPATIC FUNCTION [id number] 04:55:00 Test Item Value Reference Range Interpretation [...] (test code = 44 U/L 6-55 347) [id number] 04:55:00 Test Item Value Reference Range Interpretation Comments AMYLASE (BEAKER) (test code = 349) 47 U/L 25-125 [id number] 04:55:00 Test Item Value Reference Range Interpretation Comments LIPASE (BEAKER) (test code = 749) 54 U/L 8-78 BASIC METABOLIC [id number] 04:55:00 Test Item Value Reference Range Interpretation [...] NOT APPLICABLE FOR DIALYSIS PATIEN TS. POCT-GLUCOSE [id number] 00:13:00 Test Item Value Reference Range Interpretation Comments POC-GLUCOSE METER 153 mg/dL 70-110 H TESTED AT [place] [address] ([facility]) (test code = [place] [facility] [place] 1538) [address] POCT-GLUCOSE [id number] 19:21:00 Test Item Value Reference Range Interpretation Comments POC-GLUCOSE METER 142 mg/dL 70-110 H TESTED AT [place] [address] ([facility]) (test code = [facility] [place] 1538) [address] POCT-GLUCOSE [id number] 12:58:00 Test Item Value Reference Range Interpretation Comments POC-GLUCOSE METER 150 mg/dL 70-110 H TESTED AT [place] [address] ([facility]) (test code = [facility] [place] 1538) [address] CBC W/PLT COUNT & AUTO [id number] 07:46:00 Test Item Value Reference Range Interpretation [...] 3438) Received comment: User comments: Slide comments:POCT-GLUCOSE [id number] 05:45:00 Test Item Value Reference Range Interpretation Comments POC-GLUCOSE METER 135 mg/dL 70-110 H TESTED AT [facility] 67[facility] (BEAKER) (test code = [place] 1538) [address] BASIC METABOLIC [id number] 04:20:00 Test Item Value Reference Range Interpretation [...] S NOT APPLICABLE FOR DIALYSIS PATIEN TS. [id number] 04:18:00 Test Item Value Reference Range Interpretation Comments MAGNESIUM (BEAKER) 2.9 mg/dL 1.6-2.6 H Specimen slightly (test code = 627) hemolyzed [id number] 04:18:00 Test Item Value Reference Range Interpretation Comments PHOSPHORUS (BEAKER) 5.1 mg/dL 2.3-4.7 H Specimen slightly (test code = 604) hemolyzed HEPATIC FUNCTION [id number] 04:18:00 Test Item Value Reference Range Interpretation [...] (test code = 353) hemolyzed ALT (SGPT) ([facility]) 59 U/L 6-55 H Specimen slightly (test code = 347) hemolyzed [id number] 04:18:00 Test Item Value Reference Range Interpretation Comments AMYLASE (BEAKER) (test 58 U/L 25-125 Speci men slightly code = 349) hemolyzed [id number] 04:18:00 Test Item Value Reference Range Interpretation Comments LIPASE (BEAKER) (test code = 749) 64 U/L 8-78 CALCIUM, [id number] 03:45:00 Test Item Value Reference Range Interpretation Comments CALCIUM IONIZED ([facility]) (test 1.08 mmol/L 1.12-1.27 L code = 698) PH, BLOOD ([facility]) (test code = 7.40 1810) POCT-GLUCOSE [id number] 00:32:00 Test Item Value Reference Range Interpretation Comments POC-GLUCOSE METER 138 mg/dL 70-110 H TESTED AT [place] [address] ([facility]) ([facility] = [facility] [place] 1538) [address] VANCOMYCIN LEVEL, [id number] 19:11:00 Test Item Value Reference Range Interpretation Comments VANCOMYCIN RANDOM ([facility]) (test 11.4 ug/mL code = 523) Reference Range: No NormalsPOCT-GLUCOSE [id number] 17:45:00 Test Item Value Reference Range Interpretation Comments POC-GLUCOSE METER 153 mg/dL 70-110 H TESTED AT [place] [address] ([facility]) (test code = [facility] [facility] [place] 1538) [address] POCT-GLUCOSE [id number] 11:46:00 Test Item Value Reference Range Interpretation Comments POC-GLUCOSE METER 120 mg/dL 70-110 H TESTED AT [place] [address] ([facility]) (test [facility] = [facility] [place] 1538) [address] CBC W/PLT COUNT & AUTO [id number] 07:18:00 Test Item Value Reference Range Interpretation Comments WHITE BLOOD CELL COUNT ([facility]) 36.8 K/ L 3.5-10.5 H (test code = 775) RED BLOOD CELL COUNT ([facility]) 3.69 M/ L 3.93-5.22 L (test code = 761) HEMOGLOBIN (BEAKER) (test code = 10.2 GM/DL 11.2-15.7 L 410) HEMATOCRIT (BEAKER) (test code = 29.5 % 34.1-44.9 L 411) MEAN CORPUSCULAR VOLUME (BEAKER) 79.9 fL 79.4-94.8 (test code = 753) [...] 3438) Received comment: User comments: Slide comments:FL, [id number] 07:10:00 Reason for exam:->cbd stonesIs the patient [...] Verified Date/Time: 04/07/2018 0 7:10:55 Reading Location: [address] Consult Reading Room BASIC METABOLIC [id number] 06:42:00 Test Item Value Reference Range Interpretation [...] FOR DIALYSIS PATIEN TS. Specimen moderately ictericPOCT-GLUCOSE [id number] 06:15:00 Test Item Value Reference Range Interpretation Comments POC-GLUCOSE METER 125 mg/dL 70-110 H TESTED AT [facility] 67[facility] (BEAKER) (test code = [place] 1538) [address] [id number] 05:26:00 Test Item Value Reference Range Interpretation Comments AMYLASE (BEAKER) (test code = 349) 19 U/L 25-125 L Specimen moderately [id number] 05:26:00 Test Item Value Reference Range Interpretation Comments LIPASE (BEAKER) (test code = 749) 389 U/L 8-78 H Specimen moderately [id number] 05:25:00 Test Item Value Reference Range Interpretation Comments PHOSPHORUS (BEAKER) (test code = 4.1 mg/dL 2.3-4.7 604) [id number] 05:25:00 Test Item Value Reference Range Interpretation Comments MAGNESIUM (BEAKER) (test code = 2.9 mg/dL 1.6-2.6 H 627) HEPATIC FUNCTION [id number] 05:25:00 Test Item Value Reference Range Interpretation [...] 347) Specimen moderately ictericLACTIC ACID, ARTERIAL, WHOLE [id number] 04:30:00 Test Item Value Reference Range Interpretation Comments LACTATE BLOOD ARTERIAL (2) 0.5 mmol/L 0.5-2.2 (BEAKER) (test code = 2874) Effective 10/13/2015: Units/Reference Range ChangeNew: 0.5-2.2 mmol/L Previous: 5- 20 mg/dLSpecimen slightly ictericCALCIUM, [id number] 03:52:00 Test Item Value Reference Range Interpretation Comments CALCIUM IONIZED (BEAKER) (test 1.12 mmol/L 1.12-1.27 code = 698) PH, BLOOD (AKER) (test code = 7.34 1810) POCT-GLUCOSE [id number] 23:59:00 Test Item Value Reference Range Interpretation Comments POC-GLUCOSE METER 134 mg/dL 70-110 H TEST[facility] [place] [address] [facility] (test code = [place] 1538) [address] POCT-GLUCOSE [id number] 18:43:00 Test Item Value Reference Range Interpretation Comments POC-GLUCOSE METER 121 mg/dL 70-110 H TESTED AT [place] [address] ([facility]) (test code = [place] 1538) [address] BASIC METABOLIC [id number] 17:44:00 Test Item Value Reference Range Interpretation [...] on.Specimen slightly ictericCBC W/PLT COUNT & AUTO [id number] 16:40:00 Test Item Value Reference Range Interpretation [...] MDReport Verified Date/Time: 04/06/2018 16:27:51 Reading Location: [address] Consult Reading Room TROPONIN [id number] 16:16:00 Test Item Value Reference Range Interpretation [...] acute neurological disease, and persistent tachyarrhythmia.HEPATIC FUNCTION [id number] 16:10:00 Test Item Value Reference Range Interpretation [...] 77 U/L 6-55 H 347) Specimen moderately [id number] 16:09:00 Test Item Value Reference Range Interpretation Comments PHOSPHORUS (BEAKER) (test code = 2.7 mg/dL 2.3-4.7 604) [id number] 16:09:00 Test Item Value Reference Range Interpretation Comments MAGNESIUM (BEAKER) (test code = 1.6 mg/dL 1.6-2.6 627) [id number] 16:09:00 Test Item Value Reference Range Interpretation Comments AMYLASE (BEAKER) (test code = 349) 17 U/L 25-125 L Specimen moderately [id number] 16:09:00 Test Item Value Reference Range Interpretation Comments LIPASE (BEAKER) (test code = 749) 12 U/L 8-78 Specimen moderately ictericLACTIC ACID, VENOUS, WHOLE [id number] 16:06:00 Test Item Value Reference Range Interpretation Comments LACTATE BLOOD VENOUS (2) (BEAKER) 1.1 mmol/L 0.5-2.2 (test code = 2872) Effective 10/13/2015: Units/Reference Range ChangeNew: 0.5-2.2 mmol/L Previous: 5- 20 mg/dLSpecimen slightly ictericPROTHROMBIN [id number] 16:04:00 Test Item Value Reference Range Interpretation Comments PROTIME (BEAKER) (test code = 15.5 seconds 11.7-14.7 H 759) INR (BEAKER) (test code = 370) 1.2 <=5.9 RECOMMENDED COUMADIN/WARFARIN INR THERAPY RANGESSTANDARD DOSE: 2.0 - 3.0 Includes: PROPHYLAXIS for venous thrombosis, systemic embolization; TREATMENT for venous thrombosis and/or pulmonary embolus.HIGH RISK: Target INR is 2.5-3.5 for patients with mechanical heart valves.[id number] 16:04:00 Test Item Value Reference Range Interpretation Comments FIBRINOGEN LEVEL (BEAKER) (test 596 mg/dl 225-434 H code = 658) [id number] 16:04:00 Test Item Value Reference Range Interpretation Comments PARTIAL THROMBOPLASTIN TIME 28.6 seconds 22.5-36.0 (BEAKER) (test code = 760) URINALYSIS W/ [id number] 15:59:00 Test Item Value Reference Range Interpretation [...] 517) SOURCE(BEAKER) (test code = Urine, Franz 0023)
[2023-02-21] MEDS ORDERED: ACETAMINOPHEN 500 MG TAB ONE (11:38)
[2023-02-21] MEDS ORDERED: ACETAMINOPHEN 160 MG/5 ML UCUP ONE (11:46)
--- NOTE | 2023-02-21 12:23 | RAD REPORT ---
EXAM DESCRIPTION: RAD - Elbow Right 3 View - 02/21/2023 11:36 am CLINICAL HISTORY: Right elbow pain status post injury FINDINGS: Lateral soft tissue swelling. Subtle cortical irregularity involves the radial head on the frontal view. Several bony/calcific smal l densities lie adjacent to the lateral aspect of the distal humerus. Since there does not appear to be a joint effusion all of these findings probably are chronic. However, if the patient continues to have clinical symptoms to suggest an acute fracture then either CT or MRI would be recommended
--- NOTE | 2023-02-21 12:36 | ER ---
Nurse's Notes [facility] Name: Monica Anglin Age: 57 yrs Sex: Female : 1965 Arrival Date: 02/21/2023 Time: 11:00 Bed 13 Private MD: Diagnosis: Pain in right elbow Presentation: 02/21 11:15 Chief complaint: Patient states: she fell this morning, complaining of pain to her ap3 right arm. patient denies hitting her head. Coronavirus screen: At this time, the client does not indicate any symptoms associated with coronavirus-19. Ebola Screen: No symptoms or risks identified at this time. Initial Sepsis Screen: Does the patient meet any 2 criteria? No. Patient's initial sepsis screen is negative. Does the patient have a suspected source of infection? No. Patient's initial sepsis screen is negative. Risk Assessment: Do you want to hurt yourself or someone else? Patient reports no desire to harm self or others. Onset of symptoms was February 21, 2023. 11:15 Method Of Arrival: Ambulatory ap3 11:15 Acuity: SUMMER 4 ap3 Triage Assessment: 11:16 General: Appears in no apparent distress. Behavior is calm, cooperative, appropriate ap3 for age. Pain: Complains of pain in right arm. Neuro: Level of Consciousness is awake, alert, obeys commands, Oriented to person, place, time, situation. Historical: - Allergies: 11:16 No Known Allergies; ap3 - PMHx: 11:16 developmental delay; Hypertension; Thyroid problem; Angina pectoris; ap3 - Immunization history:: Client reports receiving the 2nd dose of the Covid vaccine. - Social history:: Smoking status: Patient denies any tobacco usage or history of. - Family history:: not pertinent. Screenin:16 Abuse screen: Denies threats or abuse. Nutritional screening: No deficits noted. ap3 Tuberculosis screening: No symptoms or risk factors identified. 11:23 [facility] ED Fall Risk Assessment (Adult) Score/Fall Risk Level 0 - 2 = Low Risk. iw Assessment: 11:22 General: Appears in no apparent distress. Behavior is calm, cooperative. Pain: iw Complains of pain in right arm. Neuro: Level of Consciousness is awake, alert, obeys commands, Oriented to person, place, Moves all extremities. Cardiovascular: Patient's skin is warm and dry. Respiratory: Respiratory effort is even, unlabored, Respiratory pattern is regular. Derm: Skin is. Musculoskeletal: Range of motion: intact in all extremities. Vital Signs: 11:17 BP 154 / 90; Pulse 115; Resp 18; Temp 98.1; Pulse Ox 95% ; ap3 12:47 BP 146 / 87; Pulse 105; Resp 18; Pulse Ox 97% on R/A; Pain 0/10; me1 12:47 Pain Scale: Adult me1 ED Course: 11:07 Patient arrived in ED. ts1 11:10 Yogesh Perry MD is Attending Physician. rt 11:16 Triage completed. ap3 11:17 Arm band placed on left wrist. ap3 11:22 Génesis Sepulveda RN is Primary Nurse. iw 11:23 Patient has correct armband on for positive identification. iw 11:23 No provider procedures requiring assistance completed. Patient did not have IV access iw during this emergency room visit. 11:38 Elbow Right 3 View XRAY In Process Unspecified. EDMS 12:48 Provided Education on: Discharge instructions. Verbalized understanding.. me1 Administered Medications: 11:31 Not Given (Duplicate Order): Acetaminophen PO 1000 mg PO once rt 11:38 Drug: Tylenol PO Liquid 1000 mg Route: PO; iw 12:34 Follow up: Response: No adverse reaction; Pain is decreased me1 Medication: 11:23 VIS not applicable for this client. iw Outcome: 12:35 Discharge ordered by MD. rt 12:48 Discharged to home ambulatory, with family. me1 12:48 Condition: stable 12:48 Discharge instructions given to patient, family, Instructed on discharge instructions, follow up and referral plans. Demonstrated understanding of instructions, follow-up care. 12:49 Patient left the ED. me1 Signatures: Dispatcher [employer] EDMS Génesis Sepulveda, RN ELIZABETH iw Gayle Cortez RN RN ap3 Yogesh Perry MD MD rt Madiha Campos PAS PAS ts1 Anna Mcintosh RN RN me1
--- NOTE | 2023-02-21 12:36 | EDPHYS ---
Physician Documentation [facility] Name: Monica Anglin Age: 57 yrs Sex: Female : 1965 Arrival Date: 02/21/2023 Time: 11:00 Bed 13 Private MD: ED Physician Yogesh Perry HPI: 02/21 11:24 This 57 yrs old Female presents to ER via Ambulatory with complaints of Fall Injury, rt Arm Injury. 11:24 Patient presents to the ED with mechanical fall. She reported lost her balance while in rt the bathroom. She fell onto her right arm. She does complain of the pain to the right elbow, but denies hitting her head, denies other pain at this time. Symptoms are mild in severity, aching nature, nonradiating, no other aggravating or alleviating factors.. Historical: - Allergies: 11:16 No Known Allergies; ap3 - PMHx: 11:16 developmental delay; Hypertension; Thyroid problem; Angina pectoris; ap3 - Immunization history:: Client reports receiving the 2nd dose of the Covid vaccine. - Social history:: Smoking status: Patient denies any tobacco usage or history of. - Family history:: not pertinent. ROS: 11:24 Constitutional: Negative for fever, chills, and weight loss, Cardiovascular: Negative rt for chest pain, palpitations, and edema, Respiratory: Negative for shortness of breath, cough, wheezing, and pleuritic chest pain, Abdomen/GI: Negative for abdominal pain, nausea, vomiting, diarrhea, and constipation, Skin: Negative for injury, rash, and discoloration, Neuro: Negative for headache, weakness, numbness, tingling, and seizure. 11:24 MS/extremity: Positive for pain, Negative for laceration. Exam: 11:24 Constitutional: This is a well developed, well nourished patient who is awake, alert, rt and in no acute distress. Head/Face: Normocephalic, atraumatic. Chest/axilla: Normal chest wall appearance and motion. Nontender with no deformity. No lesions are appreciated. Cardiovascular: Regular rate and rhythm with a normal S1 and S2. No gallops, murmurs, or rubs. Normal PMI, no JVD. No pulse deficits. Respiratory: Lungs have equal breath sounds bilaterally, clear to auscultation and percussion. No rales, rhonchi or wheezes noted. No increased work of breathing, no retractions or nasal flaring. Abdomen/GI: Soft, non-tender, with normal bowel sounds. No distension or tympany. No guarding or rebound. No evidence of tenderness throughout. Skin: Warm, dry with normal turgor. Normal color with no rashes, no lesions, and no evidence of cellulitis. Neuro: Awake and alert, GCS 15, oriented to person, place, time, and situation. Cranial nerves II-XII grossly intact. Motor strength 5/5 in all extremities. Sensory grossly intact. Cerebellar exam normal. Normal gait. 11:24 Musculoskeletal/extremity: Minimal tenderness diffusely on right elbow, no appreciable swelling, pulses, motor, sensation intact, no other swelling, deformity, tenderness to palpation on the extremity. Vital Signs: 11:17 BP 154 / 90; Pulse 115; Resp 18; Temp 98.1; Pulse Ox 95% ; ap3 12:47 BP 146 / 87; Pulse 105; Resp 18; Pulse Ox 97% on R/A; Pain 0/10; me1 12:47 Pain Scale: Adult me1 MDM: 11:16 Patient medically screened. rt 12:37 Differential diagnosis: fracture, sprain, strain. Data reviewed: vital signs, nurses rt notes, radiologic studies. Independent interpretation of the following test(s) in the Emergency Department X-Ray: My interpretation is No obvious fracture seen on interpretation of the x-ray images. Test considered but Not performed: CT: Denies head trauma, CT scan of the head not indicated. Counseling: I had a detailed discussion with the patient and/or guardian regarding the historical points, exam findings, and any diagnostic results supporting the discharge/admit diagnosis, radiology results, the need for outpatient follow up. 12:42 Response to treatment: the patient's symptoms have markedly improved after treatment. rt ED course: Informed patient of findings on x-ray, discussed with her mother as well. Patient clinically does not have an acute fracture. Instructed the patient to get repeat imaging in 1 week should her symptoms persist. Patient and mother verbalized understanding and are agreeable with this plan.. 02/21 11:23 Order name: Elbow Right 3 View XRAY; Complete Time: 12:27 rt Administered Medications: 11:31 Not Given (Duplicate Order): Acetaminophen PO 1000 mg PO once rt 11:38 Drug: Tylenol PO Liquid 1000 mg Route: PO; iw 12:34 Follow up: Response: No adverse reaction; Pain is decreased me1 Disposition Summary: 02/21/23 12:35 Discharge Ordered Location: Home rt Problem: new rt Symptoms: have improved rt Condition: Stable rt Diagnosis - Pain in right elbow rt Followup: rt - With: Private Physician - When: 2 - 3 days - Reason: Discharge Instructions: - Discharge Summary Sheet rt - Joint Pain rt - Fall Prevention in the Home, Adult rt Forms: - Medication Reconciliation Form rt - Thank You Letter rt - Antibiotic Education rt - Prescription Opioid Use rt - Patient Portal Instructions rt - Leadership Thank You Letter rt Signatures: Dispatcher [employer] Génesis Atwood RN RN iw Prokisch, Amanda, RN RN ap3 Yogesh Perry MD MD rt Anna Mcintosh RN me1
[2023-02-21 12:53] VITALS: TEMP 98.1
[2023-02-21 12:55] VITALS: BP 146/87; O2SAT 97
== END 2023-02-21 12:49 | disposition home or self-care (01) ==
LOC: ER 11:00
DX: M25.521 Pain in right elbow (principal)
CPT/HCPCS: 99283

== ENCOUNTER 2024-05-16 13:53 | Emergency (ER) | payer OTHER ==
[2024-05-16] MEDS ORDERED: ACETAMINOPHEN 325 MG TABLET ONE (14:29)
--- NOTE | 2024-05-16 14:48 | RAD REPORT ---
EXAMINATION: CT MAXILLOFACIAL WITHOUT CONTRAST CLINICAL INDICATION: Facial pain status post trauma TECHNIQUE: Axial images were obtained through the facial bones and orbits without intravenous contras t. Sagittal and coronal reconstructions were created from the data. One or more of the following dose reduction techniques were used: Automated exposure control, adjustment of the mA and/or kV accor ding to patient size, and/or iterative reconstruction. Unless otherwise specified, incidental findings do not require dedicated imaging follow-up. COMPARISON: No prior exam. FINDINGS: Large right periorbital hematoma. The right globe is normal size and density. No fracture seen. No TMJ dislocation. No fluid within the sinuses. Nasal septum deviated towards the left. IMPRESSION: No fracture seen
--- NOTE | 2024-05-16 14:49 | RAD REPORT ---
EXAMINATION: CT HEAD WITHOUT CONTRAST CT CERVICAL SPINE WITHOUT CONTRAST CLINICAL INDICATION: Head and neck injury status trauma.. Head and neck pain TECHNIQUE: Axial CT images from the skull base to the vertex without intravenous contrast. Axial CT i mages through the cervical spine were obtained without intravenous contrast. Sagittal and coronal reformatted images were created from the data set. Coronal and sagittal reformatted images were creat ed from the data set. One or more of the following dose reduction techniques were used: Automated exposure control, adjustment of the mA and/or kV according to patient size, and/or iterative reconstr uction. Unless otherwise specified, incidental findings do not require dedicated imaging follow-up. [id number]. Comparison: none FINDINGS: Large right frontal scalp hematoma. An intracranial bleed is not seen. Ventricles are normal in caliber. No significant hypodensity within the brain No extra-axial fluid collection. No fluid within the sinuses/mastoids No fracture or dislocation is seen involving the cervical spine. IMPRESSION: No acute intracranial abnormality noted A cervical fracture is not seen. If the patient continues to have symptoms to suggest acute [employer]/spinal pathology then MRI would be rec ommended
--- NOTE | 2024-05-16 14:55 | ER ---
Nurse's Notes [facility] Name: Monica Anglin Age: 58 yrs Sex: Female : 1965 Arrival Date: 05/16/2024 Time: 13:53 Bed 3 Private MD: Diagnosis: Unspecified injury of head, initial encounter;Traumatic periorbital hematoma, right Presentation: 05/16 14:07 Chief complaint: Parent and/or Guardian states: she went to the bathroom and she turned iw to quick and lost her balance , hit her head on the wall , hematoma to right eye area , no LOC , no other injuries. Coronavirus screen: At this time, the client does not indicate any symptoms associated with coronavirus-19. Ebola Screen: No symptoms or risks identified at this time. Initial Sepsis Screen: Does the patient meet any 2 criteria? No. Patient's initial sepsis screen is negative. Does the patient have a suspected source of infection? No. Patient's initial sepsis screen is negative. Risk Assessment: Do you want to hurt yourself or someone else? Patient reports no desire to harm self or others. Onset of symptoms was May 16, 2024. 14:07 Method Of Arrival: Wheelchair iw 14:07 Acuity: SUMMER 3 iw Historical: - Allergies: 14:08 No Known Allergies; iw - PMHx: 14:08 angina pectoris; developmental delay; Hypertension; Thyroid problem; iw - PSHx: 14:08 Cholecystectomy; iw - Immunization history:: Adult Immunizations up to date. - Infectious Disease History:: Denies. - Social history:: Smoking status: Patient denies any tobacco usage or history of. Screenin:05 [facility] ED Fall Risk Assessment (Adult) History of falling in the last 3 months, hb including since admission Yes- single mechanical fall (1 pt) Confusion or Disorientation No (0 pts) Intoxicated or Sedated No (0 pts) Impaired Gait Yes (1 pt) Mobility Assist Device Used Yes (1 pt) Altered Elimination No (0 pt) Score/Fall Risk Level 3 or more points = High Risk Oriented to surroundings, Maintained a safe environment, Educated pt \T\ family on fall prevention, incl call for assistance when getting out of bed, Assessed \T\ reinforced patient's understanding of fall precautions, Hourly rounding (assess needs \T\ fall precautionary measures) done, Used ambulatory aids as needed (educated on \T\ assisted with). Abuse screen: Denies threats or abuse. Denies injuries from another. Nutritional screening: No deficits noted. Tuberculosis screening: No symptoms or risk factors identified. Assessment: 14:15 General: Appears in no apparent distress. Behavior is calm, cooperative. Pain: Pain hb currently is 3 out of 10 on a pain scale. Neuro: Level of Consciousness is awake, alert, obeys commands, Oriented to person, place, time, situation. Cardiovascular: Patient's skin is warm and dry. Respiratory: Respiratory effort is even, unlabored, Respiratory pattern is regular, symmetrical. GI: No signs and/or symptoms were reported involving the gastrointestinal system. : No signs and/or symptoms were reported regarding the genitourinary system. EENT: No signs and/or symptoms were reported regarding the EENT system. Derm: Skin is pink, warm \T\ dry. Musculoskeletal: Reports pain in face. Injury Description: bruising and swelling noted to right face. 15:05 Reassessment: Patient appears in no apparent distress at this time. No changes from hb previously documented assessment. Patient and/or family updated on plan of care and expected duration. Pain level reassessed. Vital Signs: 14:07 BP 148 / 106; Pulse 102; Resp 16; Temp 97.6; Pulse Ox 97% on R/A; Weight 136.08 kg; iw Height 5 ft. 7 in. ; 14:07 Body Mass Index 46.99 (136.08 kg, 170.18 cm) iw Rd Coma Score: 14:16 Eye Response: spontaneous(4). Motor Response: obeys commands(6). Verbal Response: sb4 oriented(5). Total: 15. 14:53 Eye Response: spontaneous(4). Motor Response: obeys commands(6). Verbal Response: sb4 oriented(5). Total: 15. ED Course: 14:02 Patient arrived in ED. mg5 14:05 Rosalinda Urbina PA-C is PHCP. sb4 14:05 Flo Mehta MD is Attending Physician. sb4 14:08 Triage completed. iw 14:09 Arm band placed on. iw 14:15 Patient has correct armband on for positive identification. Provided Education on: use hb of call light . 14:15 No provider procedures requiring assistance completed. Patient did not have IV access hb during this emergency room visit. 14:31 CT Head C Spine In Process Unspecified. EDMS 14:31 Facial Bones W/O Con CT In Process Unspecified. EDMS Administered Medications: 14:35 Drug: Acetaminophen PO 650 mg PO once Route: PO; hb Medication: 15:05 VIS not applicable for this client. hb Outcome: 14:54 Discharge ordered by MD. [email or web address] 15:34 Discharged to home ambulatory, hb 15:34 Condition: stable 15:34 Discharge instructions given to patient, Instructed on discharge instructions, follow up and referral plans. medication usage, Demonstrated understanding of instructions, follow-up care, medications, 15:35 Patient left the ED. hb Signatures: Dispatcher [employer] Génesis Atwood RN ELIZABETH iw Marla Sheriff RN RN hb Rosalinda Urbina, PA-C PA-C sb4 Veronica Rasmussen mg5 Corrections: (The following items were deleted from the chart) 14:09 14:07 BP 148 / 106; Pulse 102bpm; Resp 16bpm; Pulse Ox 97% RA; Temp 97.6F; iw iw
--- NOTE | 2024-05-16 14:55 | EDPHYS ---
Physician Documentation [facility] Name: Monica Anglin Age: 58 yrs Sex: Female : 1965 Arrival Date: 05/16/2024 Time: 13:53 Bed 3 Private MD: ED Physician Flo Mehta HPI: 05/16 14:16 This 58 yrs old Female presents to ER via Wheelchair with complaints of Facial Swelling.sb4 14:16 The patient or guardian reports injury, pain, swelling, tenderness. The complaints sb4 affect the right side of forehead and right jain. Context of injury: The problem was sustained at home, resulted from a fall, slipped, while walking. Onset: The symptoms/episode began/occurred just prior to arrival. Associated signs and symptoms: Loss of consciousness: This patient did not experience any loss of consciousness. Pertinent positives: headache, injury, Pertinent negatives: the patient has not experienced a loss of conciousness, double vision, nausea, neck pain, seizure, shortness of breath, vomiting, weakness in extremities, generalized weakness. The patient has not experienced similar symptoms in the past. Historical: - Allergies: 14:08 No Known Allergies; iw - PMHx: 14:08 angina pectoris; developmental delay; Hypertension; Thyroid problem; iw - PSHx: 14:08 Cholecystectomy; iw - Immunization history:: Adult Immunizations up to date. - Infectious Disease History:: Denies. - Social history:: Smoking status: Patient denies any tobacco usage or history of. ROS: 14:16 Constitutional: Negative for fever, chills, and weight loss, sb4 14:16 MS/extremity: Positive for injury or acute deformity, ecchymosis, pain, tenderness, of the right jain and right side of forehead, 14:16 All other systems are negative, Exam: 14:17 Constitutional: This is a well developed, well nourished patient who is awake, alert, sb4 and in no acute distress. Eyes: Extra-ocular motions intact. Periorbital areas with no swelling, redness, or edema. ENT: Mucous membranes moist. Respiratory: No increased work of breathing, no retractions or nasal flaring. 14:17 Head/face: Noted is ecchymosis, erythema, hematoma, swelling, that is moderate, of the right jain and right side of forehead, Vital Signs: 14:07 BP 148 / 106; Pulse 102; Resp 16; Temp 97.6; Pulse Ox 97% on R/A; Weight 136.08 kg; iw Height 5 ft. 7 in. ; 14:07 Body Mass Index 46.99 (136.08 kg, 170.18 cm) iw Rd Coma Score: 14:16 Eye Response: spontaneous(4). Motor Response: obeys commands(6). Verbal Response: sb4 oriented(5). Total: 15. 14:53 Eye Response: spontaneous(4). Motor Response: obeys commands(6). Verbal Response: sb4 oriented(5). Total: 15. MDM: 14:11 Medical Screening Exam initiated sb4 14:53 Data reviewed: vital signs, nurses notes, radiologic studies, and as a result, I will sb4 discharge patient. Counseling: I had a detailed discussion with the patient and/or guardian regarding the historical points, exam findings, and any diagnostic results supporting the discharge/admit diagnosis, radiology results, to return to the emergency department if symptoms worsen or persist or if there are any questions or concerns that arise at home. 05/16 14:14 Order name: CT Head C Spine; Complete Time: 14:51 sb4 05/16 14:14 Order name: Facial Bones W/O Con CT; Complete Time: 14:51 sb4 Administered Medications: 14:35 Drug: Acetaminophen PO 650 mg PO once Route: PO; hb Disposition Summary: 05/16/24 14:54 Discharge Ordered Notes: Location: Home sb4 Problem: new sb4 Symptoms: have improved sb4 Condition: Stable sb4 Diagnosis - Unspecified injury of head, initial encounter sb4 - Traumatic periorbital hematoma, right sb4 Followup: sb4 - With: Emergency Department - When: As needed - Reason: Trouble breathing, Worsening of condition Discharge Instructions: - Discharge Summary Sheet sb4 - Hematoma, [id number] sb4 - Head Injury, Adult, [id number] sb4 Forms: - Patient Portal Instructions sb4 - Leadership Thank You Letter sb4 Signatures: Dispatcher [employer] Génesis Atwood RN RN iw Baxter, Heather, RN RN hb Brown, Sophia, PA-C PA-C sb4
[2024-05-16 18:11] VITALS: BP 148/106; TEMP 97.6; O2SAT 97
== END 2024-05-16 15:35 | disposition home or self-care (01) ==
LOC: ER 13:53
DX: S00.11XA Contusion of right eyelid and periocular area, initial encounter (principal); W01.0XXA Fall on same level from slipping, tripping and stumbling without subsequent striking against object, initial encounter
CPT/HCPCS: 70450; 70486; 72125; 76377; 99283